=== PATIENT | female | born 1950 | race Caucasian/White ===

== ENCOUNTER 2017-03-02 10:54 | Inpatient (IN) | payer OTHER ==
[2017-03-02] VITALS (24 sets, daily range): BP systolic 154–244; BP diastolic 56–113; PULSE 67–97; RESP 20–30; TEMP 98.4–98.6; O2SAT 92–97
[~2017-03-02] VITALS: Ht 170.2 cm; Wt 110.2 kg
--- NOTE | 2017-03-02 11:21 | PD ---
HPI Chief Complaint: Stroke Alert Time Seen by Provider: 10:58 Travel History International Travel<30 days: No Contact w/Intl Traveler<30days: No Traveled to known affect area: No History of Present Illness HPI 66-year-old female patient with unknown medical history, presents to the ER brought in by EMS as a stroke alert. Patient apparently is not from the area, was staying at a hotel and was seen to walk out to the [facility] area at 10 AM normally, but then stumbled back in at 11 AM according to staff, disoriented. When EMS got there, they noted a right facial droop and a right sided weakness and aphasia. Patient isn't able to give me any further history due to aphasia and disorientation. Stroke alert was called by EMS. Some be on scene had given her 3 tablets of aspirin. Modifying Factors: None Associated Signs & Symptoms: Stroke alert, right sided weakness and aphasia Risk Factors: Unknown PFSH Past Medical History Medical History: Unable to Obtain Past Surgical History Surgical History: Unable to Obtain Social History Tobacco Use: No Allergies-Medications (Allergen,Severity, Reaction): Coded Allergies: No Known Allergies (Unverified , 03/02/17) Review of Systems ROS Limitations: Altered Mental Status Physical Exam Narrative GENERAL: Well-developed elderly white female patient currently in moderate distress. Awake, alert, disoriented, aphasic and unable to give me much history. SKIN: Focused skin assessment warm/dry. HEAD: Atraumatic. Normocephalic. EYES: Pupils equal and round. No scleral icterus. No injection or drainage. ENT: No nasal bleeding or discharge. Mucous membranes pink and moist. NECK: Trachea midline. No JVD. CARDIOVASCULAR: Regular rate and rhythm. No murmur appreciated. RESPIRATORY: No accessory muscle use. Clear to auscultation. Breath sounds equal bilaterally. GASTROINTESTINAL: Abdomen soft, non-tender, nondistended. Hepatic and splenic margins not palpable. MUSCULOSKELETAL: No obvious deformities. No clubbing. No cyanosis. No edema. NEUROLOGICAL: Awake and alert. Obvious right sided weakness and unable to lift right leg or right arm off of the bed. Aphasia. Disoriented. Not able to follow commands. PSYCHIATRIC: Disoriented. Unable to follow commands. Data Data Last Documented VS Vital Signs Date Time Temp Pulse Resp B/P (MAP) Pulse Ox O2 Delivery O2 Flow Rate FiO2 03/02/17 12:05 244/113 (156) 03/02/17 11:42 97 Nasal Cannula 2.00 03/02/17 11:28 69 30 Orders Orders Diet Npo (03/02/17 Lunch) Activity Bed Rest (03/02/17 ) Electrocardiogram (03/02/17 ) I-Stat Creatinine (03/02/17 10:59) I-Stat Profile (03/02/17 10:59) Prothrombin Time / Inr (Pt) (03/02/17 10:59) Act Partial Throm Time (Ptt) (03/02/17 10:59) Complete Blood Count With Diff (03/02/17 10:59) Fibrinogen (03/02/17 10:59) Creatine Kinase (Cpk) (03/02/17 10:59) Troponin I (03/02/17 10:59) Ua Includes Microscopic (03/02/17 10:59) Drug Screen, Random Urine (03/02/17 10:59) Type And Screen (03/02/17 10:59) Ct Brain W/O Iv Contrast(Rout) (03/02/17 ) Chest, Single Ap (03/02/17 ) Consult Neurology (03/02/17 ) Blood Glucose (03/02/17 10:59) Ecg Monitoring (03/02/17 10:59) Neuro Checks Q2HX12,Q4H (03/02/17 10:59) Nursing Bedside Swallow Assess .ONCE (03/02/17 10:59) Iv Access Insert/Monitor (03/02/17 10:59) NPO (03/02/17 10:59) Oximetry (03/02/17 10:59) Oxygen Administration (03/02/17 10:59) Resp Oxygen Dickson C Titrat 1-4 L (03/02/17 10:59) Cath For Specimen (03/02/17 10:59) Cta Brain W Iv Contrast W 3d (03/02/17 11:21) Cta Neck W Iv Contrast W 3d (03/02/17 11:21) Ct Cerebral Perf W Iv Cont W3d (03/02/17 11:21) ^ Call Pharmacy (03/02/17 11:21) Nih Stroke Scale - Nihss .ONCE (03/02/17 11:21) Urinary Catheter Insert/Apply (03/02/17 11:21) Anticoagulant Alert (03/02/17 11:21) ^ Post Infusion Restrictions (03/02/17 11:21) ^ Medication Alert (03/02/17 11:21) Vital Signs (Adult) .As directed (03/02/17 11:21) Notify Dr: Blood Pressure (03/02/17 11:21) ^ Medication Alert (03/02/17 11:21) Resp Oxygen Dickson C Titrat 1-4 L (03/02/17 ) Metoprolol Tartrate Inj (Lopressor Inj) (03/02/17 11:30) ^ Call Pharmacy (03/02/17 11:53) Nih Stroke Scale - Nihss .ONCE (03/02/17 11:53) Anticoagulant Alert (03/02/17 11:53) ^ Post Infusion Restrictions (03/02/17 11:53) ^ Medication Alert (03/02/17 11:53) Vital Signs (Adult) .As directed (03/02/17 11:53) Notify Dr: Blood Pressure (03/02/17 11:53) ^ Medication Alert (03/02/17 11:53) Alteplase Bolus (Activase Bolus) (03/02/17 12:00) Alteplase Drip (Activase Drip) (03/02/17 12:00) Sodium Chloride 0.9% Inj (Ns Inj) (03/02/17 12:00) [facility] Nursing Information (03/02/17 12:00) Resp Oxygen Dickson C Titrat 1-4 L (03/02/17 ) Ct Brain W/O Iv Contrast(Rout) (03/03/17 ) Nicardipine Inj (Cardene Inj) (03/02/17 12:15) Admit Order (Ed Use Only) (03/02/17 12:07) Labs Laboratory Tests Test 03/02/17 10:55 White Blood Count 16.3 TH/MM3 Red Blood Count 4.84 MIL/MM3 Hemoglobin 13.8 GM/DL Bedside Hemoglobin 14.6 G/DL Hematocrit 41.2 % Bedside Hematocrit 43.0 % Mean Corpuscular Volume 85.1 FL Mean Corpuscular Hemoglobin 28.4 PG Mean Corpuscular Hemoglobin Concent 33.4 % Red Cell Distribution Width 15.2 % Platelet Count 395 TH/MM3 Mean Platelet Volume 8.8 FL Neutrophils (%) (Auto) 70.6 % Lymphocytes (%) (Auto) 16.3 % Monocytes (%) (Auto) 7.6 % Eosinophils (%) (Auto) 4.7 % Basophils (%) (Auto) 0.8 % Neutrophils # (Auto) 11.5 TH/MM3 Lymphocytes # (Auto) 2.6 TH/MM3 Monocytes # (Auto) 1.2 TH/MM3 Eosinophils # (Auto) 0.8 TH/MM3 Basophils # (Auto) 0.1 TH/MM3 CBC Comment DIFF FINAL Differential Comment Prothrombin Time 11.4 SEC Prothromb Time International Ratio 1.0 RATIO Activated Partial Thromboplast Time 26.4 SEC Fibrinogen 605 mg/dL Bedside Sodium 141 MMOL/L Bedside Potassium 4.1 MMOL/L Bedside Chloride 103 MMOL/L Bedside Blood Urea Nitrogen 35 MG/DL Bedside Creatinine 1.8 MG/DL Bedside Glucose 195 MG/DL Total Creatine Kinase 171 U/L Troponin I 0.16 NG/ML MDM Medical Decision Making Medical Screen Exam Complete: Yes Emergency Medical Condition: Yes Medical Record Reviewed: Yes Interpretation(s) Initial EKG shows normal sinus rhythm with a right bundle branch block pattern at a rate of 67 bpm. No signs of acute ST-T elevations. Laboratory Tests Test 03/02/17 10:55 White Blood Count 16.3 TH/MM3 (4.0-11.0) Neutrophils (%) (Auto) 70.6 % (16.0-70.0) Eosinophils (%) (Auto) 4.7 % (0.0-4.0) Neutrophils # (Auto) 11.5 TH/MM3 (1.8-7.7) Monocytes # (Auto) 1.2 TH/MM3 (0-0.9) Eosinophils # (Auto) 0.8 TH/MM3 (0-0.4) Fibrinogen 605 mg/dL (227-377) Bedside Blood Urea Nitrogen 35 MG/DL (8-26) Bedside Creatinine 1.8 MG/DL (0.6-1.0) Bedside Glucose 195 MG/DL (60-95) Troponin I 0.16 NG/ML (0.02-0.05) Last [address] 03/02/17 0000 Signed Impressions: Service Date/Time: Thursday, March 02, 2017 11:07 - CONCLUSION: 1. Possible embolus to the left middle cerebral artery as above. CT angiography is recommended for further evaluation if clinically indicated. No acute hemorrhage is identified Anthony Bourne MD Differential Diagnosis Stroke alert: ischemic stroke versus hemorrhagic stroke versus hypertensive emergency Narrative Course Case was discussed with Dr. Wheeler, neurology on-call, and he states that the patient has a fairly elevated NIH stroke score of 23 and would be a candidate for CTA if the CAT scan is negative for ICH. In addition, she would be a TPA candidate as well. However, patient is quite disoriented and not able to follow directions, is not able to give us a good history, and it is unclear whether she has any contraindications. She is visiting and does not have any records at this hospital, we had tried to contact family and the only number that we have that is active is through her insurance and they state that she does not have any dependence, children, and appears not to be as well. At this point, I had talked to Dr. Wheeler who is in seeing the patient and we have agreed that we would do a to Dr. brown for TPA especially because of patient's severe stroke score and need for further treatment. In addition, case had been discussed with Dr. Bourne of radiology who also state that the patient would be a very good candidate for TPA and that she has a lesion in her left MCA that is concerning for emboli. He also recommends CTA as well. CT TA had been ordered for the patient and case was then discussed with principal scientist Dr. Evangelista who accepts the case for further treatment. However, TPA had not initially been started in the ER because of fairly elevated blood pressures. Patient was given 3 doses of IV metoprolol without significant improvement. Cardene drip was initiated. TPA had been mixed and wants blood pressure was low 180 systolic, TPA was initiated. After CTA was done, there was notable lesions that would be amenable for interventional radiology treatment. Patient was then brought up to interventional radiology for treatment and admission to ICU. Aggregate critical care time was 40 minutes. Time to perform other separately billable procedures was not included in the critical care time. My time did not include minutes spent treating any other patients simultaneously or on activities that did not directly contribute to the patient's treatment. The services I provided to this patient were to treat and/or prevent clinically significant deterioration that could result in: ICH, worsening CVA, I provided critical care services requiring my management, as noted below: Chart data review, documentation time, medication orders and management, vital sign assessments/reviewing monitor data, ordering and reviewing lab tests, ordering and interpreting/reviewing x-rays and diagnostic studies, care of the patient and discussion of the patient with the admitting physicians. Diagnosis Primary Impression: Stroke due to embolism of left middle cerebral artery Additional Impression: Received intravenous tissue plasminogen activator (t-PA) in emergency department Admitting Information Admitting Physician Requests: Admit Gideon Fermin MD Mar 02, 2017 11:20
--- NOTE | 2017-03-02 11:25 | RADRPT ---
EXAM DATE/TIME: 03/02/2017 11:07 [facility] COMPARISON: No previous studies available for comparison. INDICATIONS : History of stroke,right side weakness RADIATION DOSE: 33 CTDIvol (mGy) This report was called by Anthony Bourne MD to Dr. Jamison at 1122 MEDICAL HISTORY : Non-responsive. SURGICAL HISTORY : Non-responsive. ENCOUNTER: Initial ACUITY: 1 day PAIN SCALE: Non-responsive LOCATION: cranial TECHNIQUE: Multiple contiguous axial images were obtained of the head. Using automated exposure control and adj ustment of the mA and/or kV according to patient size, radiation dose was kept as low as reasonably a chievable to obtain optimal diagnostic quality images. DICOM format image data is available electro nically for review and comparison. FINDINGS: There is a marked area of hyperdensity in the distribution of the left middle cerebral artery denser than typical clot. Whether this reflects a calcified embolus is uncertain. CT angiography is recommen ded for further evaluation if clinically indicated. No acute hemorrhage is seen. No extra-axial fluid collections are identified. Posterior fossa structures are unremarkable. CONCLUSION: 1. Possible embolus to the left middle cerebral artery as above. CT angiography is recommended for fu rther evaluation if clinically indicated. No acute hemorrhage is identified Anthony Bourne MD on March 02, 2017 at 11:19 Board Certified Radiologist. This report was verified electronically.
[2017-03-02 11:28] LABS: I-STAT POTASSIUM 4.1 MMOL/L (3.5-4.9)
[2017-03-02 11:36] LABS: AUTOMATED NEUTROPHIL # 11.5 TH/MM3 (1.8-7.7); BASOPHIL # 0.1 TH/MM3 (0-0.2); BASOPHIL % 0.8 % (0.0-2.0); EOSINOPHIL # 0.8 TH/MM3 (0-0.4); EOSINOPHIL % 4.7 % (0.0-4.0); HEMATOCRIT 41.2 % (35.0-46.0); HEMO FLAGS DIFF FINAL; LYMPH % 16.3 % (9.0-44.0); LYMPHOCYTE # 2.6 TH/MM3 (1.0-4.8); MEAN CELL VOLUME 85.1 FL (80.0-100.0); MEAN CORPUSCULAR HEMOGLOBIN 28.4 PG (27.0-34.0); MEAN CORPUSCULAR HGB CONC 33.4 % (32.0-36.0); MONO % 7.6 % (0.0-8.0); NEUT % 70.6 % (16.0-70.0); PLATELET COUNT 395 TH/MM3 (150-450); RED BLOOD COUNT 4.84 MIL/MM3 (4.00-5.30); RED CELL DISTRIBUTION WIDTH 15.2 % (11.6-17.2); WHITE BLOOD COUNT 16.3 TH/MM3 (4.0-11.0)
[2017-03-02] MEDS: METOPROLOL TARTRATE 5 MG/5 ML VIAL IV PUSH PRN ×3 (11:41→11:53)
[2017-03-02 11:43] LABS: APTT (PATIENT) 26.4 SEC (24.3-30.1); PROTHROMBIN TIME - PATIENT 11.4 SEC (9.8-11.6)
[2017-03-02] MEDS ORDERED: MISCELLANEOUS NURSING INFORMATION XX PRN (12:00)
[2017-03-02] MEDS ORDERED: SODIUM CHLORIDE 0.9% 50 ML BAG IVF ONE (12:00)
[2017-03-02] MEDS: niCARdipine INJ 25 MG in SODIUM CHLOR 0.9% 250 ML INJ 250 ML IV PRN ×2 (12:14→17:14)
[2017-03-02] MEDS ORDERED: ONDANSETRON HCL 4 MG/2 ML VIAL IV PUSH ONE (12:15)
[2017-03-02] MEDS ORDERED: MISCELLANEOUS NURSING INFORMATION XX SCH (12:30)
[2017-03-02] MEDS ORDERED: GLUCAGON 1 MG/ML VIAL OTHER PRN (12:30)
[2017-03-02] MEDS ORDERED: CHLORHEXIDINE GLUCONATE 2 % 1 PACK (2 CLOTHS) TOP PRN (12:30)
[2017-03-02] MEDS ORDERED: SENNOSIDES 8.6 MG TAB PO PRN (12:30)
[2017-03-02] MEDS ORDERED: RESP: ALBUTEROL 2.5 MG/IPRATROPIUM 0.5 MG NEB (PRN) INH (12:30)
[2017-03-02] MEDS ORDERED: BISACODYL 10 MG SUPP RECTAL PRN (12:30)
[2017-03-02] MEDS ORDERED: DEXTROSE 50% IN WATER 50 ML VIAL(D50) IV PRN (12:30)
[2017-03-02] MEDS ORDERED: LACTULOSE SYRUP 20 GM/30 ML CUP PO PRN (12:30)
[2017-03-02] MEDS ORDERED: MAGNESIUM HYDROXIDE SUSP 30 ML CUP PO PRN (12:30)
[2017-03-02] MEDS ORDERED: VERAPAMIL HCL 5 MG/2 ML VIAL ONE (12:36)
--- NOTE | 2017-03-02 12:39 | RADRPT ---
EXAM DATE/TIME: 03/02/2017 11:54 [facility] COMPARISON: CT BRAIN W/O CONTRAST, March 02, 2017, 11:07. INDICATIONS : Stroke alert IV CONTRAST: 100 cc Omnipaque 350 (iohexol) IV ; Cumulative dose for multiple exams. RADIATION DOSE: 27.92 CTDIvol (mGy) ; Combined studies MEDICAL HISTORY : Non-responsive. SURGICAL HISTORY : Non-responsive. ENCOUNTER: Initial ACUITY: 1 day PAIN SCALE: Non-responsive LOCATION: cranial TECHNIQUE: Volumetric scanning was performed using a multi-row detector CT scanner. The data was post processed with a variety of visualization algorithms including full volume maximum intensity projection, multi -planar sliding thin slab reformation, curved planar reformation, and surface rendering techniques. Using automated exposure control and adjustment of the mA and/or kV according to patient size, radiat ion dose was kept as low as reasonably achievable to obtain optimal diagnostic quality images. DICO M format image data is available electronically for review and comparison. FINDINGS: There is nonocclusive thrombus involving the left M2 segment. This is in the position of the hyperden sity seen on the noncontrast scan. The right middle cerebral artery appears normal. Note is made of f enestration in the region of the anterior cerebral artery on the right. There is a origin of th e posterior cerebral artery on the left. Examination of posterior fossa also demonstrates no evidence of aneurysm or vascular malformation. Th e vertebral arteries are codominant. CONCLUSION: 1. Nonocclusive thrombus involving the left middle cerebral artery as above Anthony Bourne MD on March 02, 2017 at 12:29 Board Certified Radiologist. This report was verified electronically.
--- NOTE | 2017-03-02 12:50 | RADRPT ---
EXAM DATE/TIME: 03/02/2017 11:54 [facility] COMPARISON: No previous studies available for comparison. INDICATIONS : Right side weakness IV CONTRAST: 100 cc Omnipaque 350 (iohexol) IV RADIATION DOSE: 248.14 CTDIvol (mGy) MEDICAL HISTORY : Non-responsive. SURGICAL HISTORY : Non-responsive. ENCOUNTER: Initial ACUITY: 1 day PAIN SCALE: Non-responsive LOCATION: perfusion TECHNIQUE: CT perfusion of the brain was performed with calculation of input and output functions and generation of color coded blood flow, blood volume and mean transit time maps. Using automated exposure control and adjustment of the mA and/or kV according to patient size, radiation dose was kept as low as reas onably achievable to obtain optimal diagnostic quality images. DICOM format image data is available electronically for review and comparison. FINDINGS: There is severe flow volume mismatch involving the entire left hemisphere with a normal lung volume. This indicates large volume tissue at risk involving entire left middle cerebral artery distribution. Mean transit time demonstrates similar findings. CONCLUSION: 1. Flow volume mismatch involving the entire left middle cerebral artery distribution. The patient is to go to catheter angiography for thrombolysis Anthony Bourne MD on March 02, 2017 at 12:39 Board Certified Radiologist. This report was verified electronically.
[2017-03-02] MEDS ORDERED: IOHEXOL 350 MG/ML 10 ML VIAL (for RAD DIAG) IVCONTRAST ONE (13:17)
--- NOTE | 2017-03-02 13:19 | MB ---
cc: AMIE CANTU MD DATE OF CONSULTATION 03/02/2017 REASON FOR CONSULTATION Stroke alert HISTORY OF PRESENT ILLNESS Ms. Sánchez is a 66-year-old female with an unknown past medical history who presented to the [facility] emergency room brought in by EMS. She stays at a hotel and she was seen to stumble at 11:00 a.m. and was disoriented. EMS noted her right facial droop and right-sided weakness with dysphagia. NIH stroke scale initially was 23, last seen normal what 950. A head CT scan with no acute intracranial abnormality and a probable left MCA calcified clot. The patient is disoriented and non-consentable, hence myself and the ED attending agreed on giving her TPA given her condition. However, the blood pressure was persistently high greater than 210. Three doses of metoprolol were given, followed by two doses of Nicardipine and blood pressure was still elevated. Neck and head CTA were ordered. TPA was ordered. ICU attending was consulted and is on board. After the patient received the antihypertensive medication, there was some improvements in her neurologic status where she is awake, more alert, still dysphasic with right hemiparesis and right facial droop, but NIH stroke scale had drop down to 14 and a CTA of the head revealed a nonocclusive thrombus in the left MCA M2, hence the patient was transferred to the interventional radiology suite. The patient has received three aspirin while she was on the scene as per the notes. REVIEW OF SYSTEMS Unable to obtain. PAST MEDICAL HISTORY Unable to obtain. PAST SURGICAL HISTORY Unable to obtain. ALLERGIES Unable to obtain, as per medical records no known allergies. FAMILY HISTORY Unable to obtain. SOCIAL HISTORY Unable to obtain. PHYSICAL EXAMINATION GENERAL: The patient is disoriented and dysphasic. HEENT: Atraumatic, normocephalic. Apparent intact hearing, follows verbal commands. NECK: No signs of meningeal irritation. CARDIOVASCULAR: Regular rate and rhythm. RESPIRATORY: Clear to auscultation. No wheezes. GASTROINTESTINAL: Soft abdomen. NEUROLOGIC: Awake, alert, not oriented to person, not to time and place, dysphasic, right facial droop, right upper and lower extremity hemiparesis. There is some movement on the right shoulder abduction 1/5, right elbow extension 1/5, finger flexion 4-/5, right lower extremity, right hip flexion, knee extension and foot dorsiflexion 1/5, left upper and lower extremity 5/5. Plantar right upgoing, left mute, unable to assess cerebellar and sensory function due to the condition of the patient. PSYCHIATRIC: Unable to assess. LABORATORY DATA White BC 16.3, hemoglobin 13.8, platelet 395.Coagulation INR 1, fibrinogen elevated at 6.5, sodium 141, potassium 4.1, BUN 35, creatinine 1.8, glucose 195 , troponin 0.16. DIAGNOSTIC IMAGING - Head CT scan without contrast revealed possible embolus to the left MCA.- - Head CTA cerebral perfusion revealed flow-volume mismatch involving the entire left middle cerebral artery. - Head CTA revealed nonocclusive thrombus involving the left MCA. DIAGNOSTIC IMPRESSION AND PLAN The patient presented as a stroke alert with unknown past medical history, initial NIH stroke scale was 23. CT scan was negative for an for bleeding and it showed calcified left MCA embolus. Patient's labs were normal, however, blood pressure was elevated. She received metoprolol and Nicardipine. There was mild decrease in the blood pressure with mild improvement in neurological status to an NIH score of 14. CTA head with IV contrast revealed nonocclusive thrombus in the left MCA. The patient is not consentable, however. The emergency room physician and myself agreed to tPA once the blood pressure goes down however, the patient is transferred to the radiology suite for clots retrieval and thrombolysis. The corset maker was also consulted and he is on board with the team. Stroke alert, left MCA thrombus candidate for tPA and surgical intervention. She will be transferred to the ICU after the intervention and neurology will follow up. Thank you for the opportunity to participate in the care of your patient. MD ELYSE Grajeda/CHICHO /12:45 PM /1:01 PM RA
--- NOTE | 2017-03-02 13:27 | RADRPT ---
EXAM DATE/TIME: 03/02/2017 11:54 [facility] COMPARISON: No previous studies available for comparison. INDICATIONS : Stroke alert IV CONTRAST: 100 cc Omnipaque 350 (iohexol) IV RADIATION DOSE: 27.92 CTDIvol (mGy) ; Combined studies MEDICAL HISTORY : Non-responsive. SURGICAL HISTORY : Non-responsive. ENCOUNTER: Initial ACUITY: 1 day PAIN SCALE: Non-responsive LOCATION: cranial Elevated flow velocities and ICA/CCA ratios have been found to correlate with increased degrees of vessel stenosis, calculated as percentage of diameter relative to a normal segment of distal ICA/CCA. TECHNIQUE: Volumetric scanning was performed using a multirow detector CT scanner. The data was post processed with a variety of visualization algorithms including full-volume maximum intensity projection, multip lanar sliding thin-slab reformation, curved-planar reformation, and surface-rendering techniques. Us ing automated exposure control and adjustment of the mA and/or kV according to patient size, radiatio n dose was kept as low as reasonably achievable to obtain optimal diagnostic quality images. DICOM f ormat image data is available electronically for review and comparison. FINDINGS: No abnormality is identified within the lung apices. There is bovine origin of vessels from the arch without evidence of proximal stenosis. Vertebral arteries are codominant. Examination of the right common carotid artery demonstrates the vessel to be widely patent. There is 0-10% stenosis at the origin of the right internal carotid artery with minimal calcific plaque More d istally the cervical internal carotid artery is intact. Examination of the left common carotid artery demonstrates the vessel to be widely patent. There is 0 -10% stenosis at the organ of the left internal carotid artery with minimal calcific plaque More dist ally the cervical internal carotid artery is intact. Percent stenosis is calculated using the diameter of the stenotic region over the diameter of the nor mal distal internal carotid artery. CONCLUSION: 1. No evidence of hemodynamically significant lesion. There is 0-10% stenosis bilaterally. Anthony Bourne MD on March 02, 2017 at 13:19 Board Certified Radiologist. This report was verified electronically.
[2017-03-02] MEDS: ALTEPLASE BOLUS 9 MG/9 ML SYR IV ONE ×2 (13:34→17:56)
[2017-03-02] MEDS: ALTEPLASE DRIP IV ONE ×2 (13:35→17:58)
[2017-03-02] MEDS ORDERED: HEPARIN SODIUM - IV 10,000 UNITS/10 ML VIAL ONE (13:38)
--- NOTE | 2017-03-02 13:59 | MH ---
cc: MARY MORENO M.D. DATE OF ADMISSION: 03/02/2017 DATE OF : 1950. HISTORY OF PRESENT ILLNESS: The patient is a 66-year-old female with unknown past medical history who presented to [facility] emergency department by EMS as a stroke alert. The patient was staying at the Hotel and was last seen normal at approximately 09:50 a.m. when she was walking to the patio and then she stumbled back at 11:11 a.m. according to staff disoriented. When EMS arrived she was noted to have right facial droop and right-sided weakness with aphasia. On arrival to the emergency room she was hypertensive with a blood pressure of 244/113. The patient was given Lopressor 5 mg IV x3 and placed on Cardene drip. CT scan of the brain showed possible embolus to the left MCA. She also had a CTA of the brain which showed nonocclusive thrombus involving the left MCA and CTA with brain perfusion showed flow-volume mismatch involving the entire left MCA distribution. She was seen by Dr. Wheeler from neurology service and the patient went to interventional radiology to undergo a catheterization, Angiography for thrombolysis and cough retraction. When seen she was on Cardene drip at 10 mg an hour with current blood pressure of 205/92. The patient is on 2 liters oxygen with saturation of 98% and a pulse of 72. HISTORY: Most of the history was obtained from reviewing the medical records. The patient is not able to provide any history due to her aphagia. At the scene, she was given 3 tablets of aspirin. Her labs from point of care showed a creatinine of 1.8 and troponin 0.16 with a potassium level 4.1. PAST MEDICAL HISTORY: A past medical history unknown. PAST SURGICAL HISTORY Unknown. ALLERGIES NO KNOWN DRUG ALLERGIES. FAMILY HISTORY Unknown MEDICATIONS: medications unknown. REVIEW OF SYSTEMS Unobtainable. No prior visits. PHYSICAL EXAMINATION: IN GENERAL: A 66-year-old female lying in bed, disoriented and dysphasic. VITAL SIGNS: afebrile, pulse of 72, blood pressure 205/92 currently on Cardene saturation 98%. HEAD, EYES, EARS, NOSE, AND THROAT: Atraumatic, normocephalic pupil equal and reactive to accommodation, Extraocular muscles intact, Conjunctivae pink. Nonicteric sclerae. NECK: Supple. No jugular venous distention, adenopathy or thyromegaly. Trachea midline. CARDIOVASCULAR SYSTEM: Regular rate and rhythm. Normal S1-S2. No murmurs, rubs or gallops noted. PULMONARY EXAMINATION: Bilateral equal entry. No rales or wheezing. ABDOMEN: Soft, nontender, no distension. Positive bowel sounds. EXTREMITIES: No cyanosis, clubbing or edema. NEUROLOGIC: Awake and dysphasic right facial droop noted along with right upper and lower extremity hemiparesis. LABORATORY FINDINGS: Her laboratory data and WBC 16.3, hemoglobin 13.8, hematocrit 41, platelet count of 395, point of care sodium 141, potassium 4.1, chloride 103, BUN 35, creatinine 1.8, glucose 195, troponin 0.16, total CK 171, INR 1, PT 11.4, PTT 26, fibrinogen 605. RADIOGRAPHY CT scan of the brain showed possible embolus to the left MCA CTA of the brain showed nonocclusive thrombus involving the left MCA CTA of the head and neck with brain perfusion showed a flow-volume mismatch involving the entire left middle cerebral artery distribution. EKG showed normal sinus rhythm with right bundle-branch block at a rate of 67 beats per minute. IMPRESSION 1. Left-sided MCA stroke. 2. Hypertensive emergency. 3. Acute kidney injury. 4. Hyperglycemia. 5. Leukocytosis likely stress-related. RECOMMENDATIONS: - Monitor neuro status closely and avoid any sedatives. -CTA of the brain and with perfusion showed flow volume mismatch involving the entire left MCA distribution. -CTA of the brain showed nonocclusive thrombus involving the left MCA. -Patient was evaluated by Dr. Wheeler from neurology service and she was transferred to radiology suite where she underwent angiogram and embolectomy with presybeterian of antegrade flow. - We will obtain 2-D echo. CTA of the neck showed no evidence of any hemodynamically significant lesions. -Continue with oxygen and maintain sats above 92%. - Bronchodilators in the form of DuoNeb q. 6+ q. two p.r.n. for shortness of breath. Aspiration precautions. - Continue with Cardene drip. Monitor heart rate and blood pressure closely. -We will target systolic blood pressure goal of 180s. -Monitor renal function Is and Os and electrolyte replacement as needed. -Place on IV fluids in the form of NS at 75 ml an hour. - Keep n.p.o. for now and placed on Protonix 40 mg IV daily for GI prophylaxis. -Speech evaluation. - Monitor for signs of infections which include fever and WBC. Will obtain a baseline chest x-ray and check urinalysis with culture if indicated. -Leukocytosis likely stress related. - Monitor CBC and Coags. - Sliding scale insulin with Accu-Chek's for glycemic control. - GI prophylaxis with Protonix 40 mg daily and DVT prophylaxis with SCDs for now. -Critical care time 35 minutes excluding procedures. Case discussed with Dr. Wheeler from neurology service and the ED nursing staff. MD JEFE Costa/sehllie /1:24 PM /1:43 PM RA
[2017-03-02] MEDS ORDERED: SODIUM CHLOR 0.9% 1000 ML INJ 1,000 ML IV SCH (14:00)
[2017-03-02 14:27] LABS: ALT (GPT) 25 U/L (10-53); ANION GAP 10 MEQ/L (5-15); AST (GOT) 20 U/L (15-37); BICARBONATE 25.7 MEQ/L (21.0-32.0); BLOOD UREA NITROGEN 36 MG/DL (7-18); CHLORIDE 104 MEQ/L (98-107); GLOMERULAR FILTRATION RATE 25 ML/MIN (>89); POTASSIUM 4.1 MEQ/L (3.5-5.1); SODIUM (NA) 140 MEQ/L (136-145)
[2017-03-02 14:29] LABS: ALKALINE PHOSPHATASE 95 U/L (45-117); TOTAL BILIRUBIN ADULT 0.3 MG/DL (0.2-1.0)
[2017-03-02] MEDS ORDERED: IODIXANOL 320 MG/ML 100 ML VIAL (for EPS) I-ARTERIAL ONE (15:14)
[2017-03-02] MEDS ORDERED: DO NOT ADM ANY ANTICOAGULANT DRUGS PRN (15:25)
--- NOTE | 2017-03-02 15:42 | PD.RAD ---
Post Procedure Progress Note Pre Procedure Diagnosis: (1) Stroke due to embolism of left middle cerebral artery Post Procedure Diagnosis: (1) Stroke due to embolism of left middle cerebral artery Procedure Date: Mar 02, 2017 Supervising Radiologist: Micky Sauer Proceduralist/Assist: Rolan Sanz, RT(R), Radha Kline, RT(R)(CV), Ana Moulton, RT(R) Anesthesia: General Plan of Activity Patient to Unit: Critical Care Patient Condition: Fair See PACS Report for procedural detail/treatment Vascular-Arterial Procedure Procedure 1 Procedure Site: Cerebral (left MCA) Procedure(s): Angiogram, Embolectomy (Solumbra) Access Access Site(s): Right Femoral Artery Closure Site(s): Right vascular closure device (PerClose) Findings: Dense embolus to right MCA. Embolectomy with 4mm x 2 cm Solitaire and 060 Penumbra. Christianity of antegrade flow. Micky Sauer MD Mar 02, 2017 15:42
[2017-03-02] MEDS ORDERED: *RESP: ALBUTEROL 2.5 MG/3 ML NEB (PRN) PERIprocedural Use ONLY NEB ONE (16:02)
--- NOTE | 2017-03-02 16:44 | ECHRPT ---
Indication: cva/tia CONCLUSIONS The left ventricular systolic function is low normal with an estimated ejection fraction in the rang e of 50- 55%. Mild concentric left ventricular hypertrophy. Mild thickening of the mitral valve leaflets. Moderate mitral annular calcification. Mild to moderate mitral valve stenosis (MVA 1.7, mean grad 5.5 at a heart rate of 75). There is mild tricuspid valve regurgitation. BP: / HR: Rhythm: MEASUREMENTS (Male / Female) Normal Values Technical Quality:Very technically difficult study 2D ECHO LV Diastolic Diameter PLAX 4.3 cm 4.2 - 5.9 / 3.9 - 5.3 cm LV Systolic Diameter PLAX 3.4 cm IVS Diastolic Thickness 1.4 cm 0.6 - 1.0 / 0.6 - 0.9 cm LVPW Diastolic Thickness 1.3 cm 0.6 - 1.0 / 0.6 - 0.9 cm LV Relative Wall Thickness 0.6 RV Internal Dim ED PLAX 2.4 cm M-MODE Aortic Root Diameter MM 3.7 cm LA Systolic Diameter MM 4.0 cm LA Ao Ratio MM 1.1 AV Cusp Separation MM 1.4 cm DOPPLER MV Area PHT 1.7 cm LV E' Lateral Velocity 6.8 cm/s LV E' Septal Velocity 16.6 cm/s FINDINGS LEFT VENTRICLE The left ventricular systolic function is low normal with an estimated ejection fraction in the rang e of 50- 55%. Mild concentric left ventricular hypertrophy. Normal left ventricular size. This study was not technically sufficient to allow for evaluation of left ventricular diastolic func tion. RIGHT VENTRICLE Normal right ventricular size and systolic function. LEFT ATRIUM Left atrium is not well visualized, but appears mildly enlarged RIGHT ATRIUM The right atrium is not well visualized. ATRIAL SEPTUM Normal atrial septal thickness without atrial level shunting by limited color doppler interrogation. AORTA The aortic root and proximal ascending aorta are normal in size on limited imaging. MITRAL VALVE Mild thickening of the mitral valve leaflets. Moderate mitral annular calcification. No mitral valve regurgitation. Mild to moderate mitral valve stenosis (MVA 1.7, mean grad 5.5 at a heart rate of 75) AORTIC VALVE Probable trileaflet aortic valve. No aortic valve stenosis or regurgitation. TRICUSPID VALVE Structurally normal tricuspid valve. There is mild tricuspid valve regurgitation. PULMONARY VALVE The pulmonary valve is not well visualized. VESSELS The inferior vena cava is normal in size. PERICARDIUM There is a trace pericardial effusion. Vern Neumann DO (Electronically Signed) Final Date:02 March 2017 16:43
--- NOTE | 2017-03-02 17:30 | RADRPT ---
EXAM DATE/TIME: 03/02/2017 16:57 [facility] COMPARISON: No previous studies available for comparison. INDICATIONS : Stroke alert. MEDICAL HISTORY : None. SURGICAL HISTORY : None. ENCOUNTER: Initial ACUITY: 1 day PAIN SCORE: Non-responsive. LOCATION: Bilateral chest FINDINGS: There is ill-defined infiltrate of the left lung base. No pleural effusion seen. No pneumothorax. Hea rt size upper limits of normal. CONCLUSION: Left base infiltrate. Vinay Castellon MD on March 02, 2017 at 17:28 Board Certified Radiologist. This report was verified electronically.
[2017-03-02] MEDS: INSULIN NovoLIN REGULAR SUPPLEMENTAL SCALE SQ SCH ×2 (18:00→22:00)
[2017-03-02] MEDS: RESP: ALBUTEROL 2.5 MG/IPRATROPIUM 0.5 MG NEB (SCH) INH (20:59)
[2017-03-02] MEDS: DOCUSATE SODIUM 50 MG/SENNA 8.6 MG TAB PO SCH (21:00)
[2017-03-02] MEDS: ACETAMINOPHEN 1000 MG/100 ML VIAL IV PRN (21:42)
[2017-03-03] VITALS (25 sets, daily range): BP systolic 140–206; BP diastolic 57–91; PULSE 74–99; RESP 16–35; TEMP 98–99.5; O2SAT 87–100
[2017-03-03] MEDS: RESP: ALBUTEROL 2.5 MG/IPRATROPIUM 0.5 MG NEB (SCH) INH ×7 (00:20→23:05)
[2017-03-03] MEDS ORDERED: CALC0.25 PO (00:53)
[2017-03-03] MEDS ORDERED: ERGO2000 PO (00:53)
[2017-03-03] MEDS ORDERED: ATEN50TA PO (00:53)
[2017-03-03] MEDS ORDERED: OMEP40CA2 PO (00:53)
[2017-03-03] MEDS ORDERED: VALS320T6 PO (00:53)
[2017-03-03] MEDS: CHLORHEXIDINE GLUCONATE 2 % 1 PACK (2 CLOTHS) TOP SCH (04:00)
[2017-03-03 04:54] LABS: AUTOMATED NEUTROPHIL # 12.9 TH/MM3 (1.8-7.7); BASOPHIL # 0.1 TH/MM3 (0-0.2); BASOPHIL % 0.6 % (0.0-2.0); EOSINOPHIL # 0.1 TH/MM3 (0-0.4); EOSINOPHIL % 0.8 % (0.0-4.0); HEMATOCRIT 36.9 % (35.0-46.0); HEMO FLAGS DIFF FINAL; LYMPH % 11.7 % (9.0-44.0); LYMPHOCYTE # 1.9 TH/MM3 (1.0-4.8); MEAN CELL VOLUME 86.3 FL (80.0-100.0); MEAN CORPUSCULAR HEMOGLOBIN 27.8 PG (27.0-34.0); MEAN CORPUSCULAR HGB CONC 32.2 % (32.0-36.0); MONO % 7.1 % (0.0-8.0); NEUT % 79.8 % (16.0-70.0); PLATELET COUNT 324 TH/MM3 (150-450); RED BLOOD COUNT 4.28 MIL/MM3 (4.00-5.30); WHITE BLOOD COUNT 16.1 TH/MM3 (4.0-11.0)
[2017-03-03 05:20] LABS: ALKALINE PHOSPHATASE 92 U/L (45-117); ALT (GPT) 20 U/L (10-53); ANION GAP 10 MEQ/L (5-15); AST (GOT) 17 U/L (15-37); BICARBONATE 22.4 MEQ/L (21.0-32.0); BLOOD UREA NITROGEN 38 MG/DL (7-18); CHLORIDE 109 MEQ/L (98-107); GLOMERULAR FILTRATION RATE 23 ML/MIN (>89); MAGNESIUM 2.1 MG/DL (1.5-2.5); POTASSIUM 3.8 MEQ/L (3.5-5.1); SODIUM (NA) 141 MEQ/L (136-145); TOTAL BILIRUBIN ADULT 0.2 MG/DL (0.2-1.0)
[2017-03-03] MEDS: INSULIN NovoLIN REGULAR SUPPLEMENTAL SCALE SQ SCH ×5 (06:00→21:35)
[2017-03-03] MEDS: PANTOPRAZOLE SODIUM 40 MG VIAL IV SCH (08:40)
[2017-03-03] MEDS: METOPROLOL TARTRATE 5 MG/5 ML VIAL IV PUSH PRN ×2 (08:41→14:02)
[2017-03-03] MEDS: DOCUSATE SODIUM 50 MG/SENNA 8.6 MG TAB PO SCH ×2 (09:00→21:30)
[2017-03-03] MEDS: niCARdipine INJ 25 MG in SODIUM CHLOR 0.9% 250 ML INJ 250 ML IV PRN ×2 (09:50→14:01)
--- NOTE | 2017-03-03 13:29 | RADRPT ---
EXAM DATE/TIME: 03/02/2017 12:44 [facility] COMPARISON: No previous studies available for comparison. INDICATIONS : AMS. Stroke alert MEDICAL HISTORY : 1. AMS SURGICAL HISTORY : unknown ENCOUNTER: Initial ACUITY: 1 day PAIN SCORE: Nonresponsive. FLUORO TIME: 37.4 minutes IMAGE SERIES: 13 ACCESS SITE: Right Femoral artery CONTRAST: 90 cc Visipaque (iodixanol) MEDICATION(S): 1.) 3000 units Heparin IV DEVICE(S): 1.) Right common femoral artery Perclose 2.) Left midddle cerebral artery 4 -20 solitaire 3.) Left middle cerebral artery lauren 60 kit TIMELINE: Interventional team called: Interventional team arrived: Interventional team ready: 1230 pm Patient arrival: 1245 pm Groin puncture: 1322 pm Recanalization: 1435 pm Anesthesia and pain control was provided by the Anesthesia department. PROCEDURE : 1. Ultrasound-guided puncture of the access site. 2. Angiography of the access site prior to closure device. 3. Conscious sedation with continuous EKG and Oximetry monitoring. 4. Percutaneous closure of the access site. 5. Angiography of the left M2 segment 6. Solumbra extraction of left MCA embolus. The risks, benefits and alternatives to the procedure were explained and verbal and written consent w as obtained. The site was prepped in sterile fashion. Full sterile technique was used, including ca p, mask, sterile gloves and gown and a large sterile sheet. Hand hygiene and 2% chlorhexidine and/or betadine/alcohol prep was utilized per protocol for cutaneous antisepsis. Sterile gel and sterile p robe cover were utilized for ultrasound guidance. The skin and subcutaneous tissues were infiltrated with local anesthetic solution. With ultrasound and fluoroscopic guidance the selected artery was punctured and a vascular sheath was placed. Angiography of the common femoral artery was performed for evaluation prior to percutaneous closure device placement. Patient has a true bovine arch. JB2 catheter was used to select the left common carotid artery. Posit ion was confirmed with positive contrast. A Magic torque wire was advanced into the external carotid system to facilitate placement of the 6 Singaporean neuron sheath which was advanced into the common carot id then redirected into the petrous portion of the internal. Contrast injection confirmed occlusion o f the proximal left MCA. Sheath was connected to a verapamil drip. At this point, the agility wir e, marked min catheter and 068 max Penumbra catheter were coaxially loaded into a carrier sheath. The microcatheter and wire were advanced up to the edge of the occlusion in the left MCA territory. Prob ably due to the nature of the embolus, the occlusion was very difficult to traverse. The 068 to Penum bra catheter was then advanced further into the internal but I could not get the device to pass into the terminal genu of the left ICA. However, this provide enough purchase to advance the catheter and wire into the distal branches of the left MCA territory. Therefore, a 20 mm x 4 mm solitare retrievab le stent was advanced through the Marksman catheter and laid across the area of occlusion. Contrast i njection confirmed yazidi of antegrade flow through the left carotid system. A second attempt to advance the Penumbra catheter was unsuccessful. Therefore, the entire system was removed and replace d with the 060 Penumbra. Again, with no Marksman catheter in the agility wire across the occlusion I could not advance the 060 catheter therefore, the solitare device was redeployed across the occlusion with yazidi of antegrade flow. Using the solitare is an anchor, and was eventually able to adva nce the 060 catheter in the edge of the occlusion. Suction was applied to the penumbra catheter in th e solitare was slowly withdrawn back into the aspiration catheter. The aspiration catheter itself was then withdrawn. Contrast injection through the remaining sheath showed yazidi of antegrade flow . Hemostasis was obtained with the prescribed medicated closure device. Conscious sedation was perform ed with the prescribed dosages and duration as above in the presence of an independent trained radiol ogy nurse to assist in the monitoring of the patient. EKG and oximetry remained stable throughout e procedure. CONCLUSION: Successful embolectomy of the left MCA territory using a Solumbra technique as above. Micky Sauer MD on March 03, 2017 at 12:05 Board Certified Radiologist. This report was verified electronically.
--- NOTE | 2017-03-03 13:41 | EKG ---
Date Performed: 03/02/2017 Time Performed: 11:20:40 PTAGE: 66 years EKG: Sinus rhythm POSSIBLE LEFT ATRIAL ENLARGEMENT LEFT BUNDLE BRANCH BLOCK ABNORMAL ECG NO PREVIOUS TRACING DOCTOR: Augie Gamino Interpretating Date/Time 03/03/2017 13:38:31
[2017-03-03] MEDS ORDERED: NITROGLYCERIN 2% OINT 1 GM PACKET TOPICAL PRN (13:45)
--- NOTE | 2017-03-03 13:49 | HHI.CCPN ---
Subjective Remarks/Hospital Course The patient is a 66-year-old female with unknown past medical history who presented to [facility] emergency department by EMS as a stroke alert. The patient was staying at the Hotel and was last seen normal at approximately 09:50 a.m. when she was walking to the patio and then she stumbled back at 11:11 a.m. according to staff disoriented. When EMS arrived she was noted to have right facial droop and right-sided weakness with aphasia. On arrival to the emergency room she was hypertensive with a blood pressure of 244/113. The patient was given Lopressor 5 mg IV x3 and placed on Cardene drip. CT scan of the brain showed possible embolus to the left MCA. She also had a CTA of the brain which showed nonocclusive thrombus involving the left MCA and CTA with brain perfusion showed flow-volume mismatch involving the entire left MCA distribution. She was seen by Dr. Wheeler from neurology service and the patient went to interventional radiology to undergo a catheterization, Angiography for thrombolysis and cough retraction. When seen she was on Cardene drip at 10 mg an hour with current blood pressure of 205/92. The patient is on 2 liters oxygen with saturation of 98% and a pulse of 72. Subjective 03/03: Early resting in bed. Verbalizes a few words. Right-sided remains flaccid with right-sided facial droop. Noted patient is insulin pump. Objective Vital Signs Date Time Temp Pulse Resp B/P (MAP) Pulse Ox O2 Delivery O2 Flow Rate FiO2 03/03/17 12:00 98.1 93 24 174/73 (106) 92 03/03/17 08:07 Nasal Cannula 4.00 03/02/17 16:30 100 Intake and Output 03/03/17 03/03/17 03/04/17 08:00 16:00 00:00 Intake Total 1777 ml 250 ml Output Total 600 ml Balance 1177 ml 250 ml Result Diagram: 03/03/175 03/03/17404 Imaging Last 72 hours Impressions Cerebral Arteriogram 03/02/17 1511 Signed Impressions: Service Date/Time: Thursday, March 02, 2017 12:44 - CONCLUSION: Successful embolectomy of the left MCA territory using a Solumbra technique as above. Micky Sauer MD Neck CTA 03/02/17 1121 Signed Impressions: Service Date/Time: Thursday, March 02, 2017 11:54 - CONCLUSION: 1. No evidence of hemodynamically significant lesion. There is 0-10%% stenosis bilaterally. Anthony Bourne MD Head/Neck CTA with Brain Perfusion 03/02/171 Signed Impressions: Service Date/Time: Thursday, March 02, 2017 11:54 - CONCLUSION: 1. Flow volume mismatch involving the entire left middle cerebral artery distribution. The patient is to go to catheter angiography for thrombolysis Anthony Borune MD Head CTA 03/02/17 1121 Signed Impressions: Service Date/Time: Thursday, March 02, 2017 11:54 - CONCLUSION: 1. Nonocclusive thrombus involving the left middle cerebral artery as above Anthony Bourne MD Head CT 03/02/17 0000 Signed Impressions: Service Date/Time: Thursday, March 02, 2017 11:07 - CONCLUSION: 1. Possible embolus to the left middle cerebral artery as above. CT angiography is recommended for further evaluation if clinically indicated. No acute hemorrhage is identified Anthony Bourne MD Chest X-Ray 03/02/17 0000 Signed Impressions: Service Date/Time: Thursday, March 02, 2017 16:57 - CONCLUSION: Left base infiltrate. Vinay Castellon MD Objective Remarks GENERAL: 66 year old female, currently resting in bed in mild distress SKIN: Warm and dry. No rash HEAD: Atraumatic. Normocephalic. EYES: Pupils equal and round about 3 mm bilaterally and reactive. No scleral icterus. No injection or drainage. ENT: No nasal bleeding or discharge. Mucous membranes pink and moist. NECK: Trachea midline. No JVD. CARDIOVASCULAR: Regular rate and rhythm. S1, S2 no S4 without murmur RESPIRATORY: No accessory muscle use. Clear to auscultation. Breath sounds equal bilaterally. GASTROINTESTINAL: Abdomen soft, non-tender, nondistended. Hepatic and splenic margins not palpable. MUSCULOSKELETAL: Extremities without significant peripheral edema. No obvious deformities. NEUROLOGICAL: Awake and alert. Right facial droop. Right-sided flaccid. Withdraws to pain in right upper and lower extremity. Strength 5 out of 5 left upper and lower extremity. Sensation intact.. Five out of 5 muscle strength in the arms and legs. Normal speech. Verbalizes 1-2 word answers A/P Assessment and Plan Neuro/Psych: Left MCA CVA status post embolectomy Status post embolectomy 4 mg by 2 cm stent retrieval 03/02. Repeat head CT at 2 PM. Start baby aspirin 81 mg daily no bleeding Neurology/Dr. Wheeler following Panel pending CV: Hypertension Currently on as needed labetalol/hydralazine and Nitropaste to maintain systolic blood pressure less than 180 Home medications atenolol 50 mill grams daily and valsartan/HCTZ 320/25 one tablet daily 2-D echocardiogram revealed EF 55%. Mild LVH Resp: Nasal cannula to maintain saturations greater than equal to 92% Incentive spirometry while awake GI: Gastroesophageal reflux disease Advance diet as tolerated per speech therapy Pantoprazole for GI prophylaxis. On omeprazole at home 20 mg daily Leslie-Colace for bowel regimen : Zapien catheter if indicated for accurate I's and O's in a critically ill patient Endo: Diabetes mellitus Discontinue insulin pump. Restart when clinically indicated Sliding-scale insulin with Accu-Cheks to maintain euglycemia/low regimen every 4 hours with Novulog Renal: Acute kidney injury question underlying chronic kidney disease Currently normal saline 75 cc an hour Crowding currently 2.2. Check urine electrolytes and eosinophils. Renal ultrasound ordered. Heme: Leukocytosis Monitor CBC daily. Follow trends ID: Monitor for infection MSK: Vitamin D deficiency Holding calcitriol 0.25 mg daily and ergocalciferol 2000 units daily. Resume when clinically indicated FEN: Replace electrolytes as clinically indicated Access - Utilize peripheral IV. Central line if indicated Prophylaxis - GI - pantoprazole - DVT - SCD/likely protocol prophylaxis vascular embolectomy Level II follow-up Ron Marcus MD Mar 03, 2017 13:49
[2017-03-03] MEDS ORDERED: SODIUM CHLOR 0.45% 1000 ML INJ 1,000 ML IV ONE (14:00)
--- NOTE | 2017-03-03 14:58 | RADRPT ---
EXAM DATE/TIME: 03/03/2017 14:18 [facility] COMPARISON: CT BRAIN W/O CONTRAST, March 02, 2017, 11:07. INDICATIONS : Follow up TPA. RADIATION DOSE: 36.35 CTDIvol (mGy) MEDICAL HISTORY : None SURGICAL HISTORY : None. ENCOUNTER: Subsequent ACUITY: 1 day PAIN SCALE: 0/10 LOCATION: Cranial TECHNIQUE: Multiple contiguous axial images were obtained of the head. Using automated exposure control and adj ustment of the mA and/or kV according to patient size, radiation dose was kept as low as reasonably a chievable to obtain optimal diagnostic quality images. DICOM format image data is available electro nically for review and comparison. FINDINGS: There is faint parenchymal high density within the left posterior parietal region consistent with pos sible minimal parenchymal or subarachnoid areas of hemorrhage. There is diffuse effacement of the le ft posterior parietal sulci as well as underlying scattered areas of decreased attenuation within the left posterior parietal regions suggestive of probable acute infarct. No midline shift is noted. Th e ventricles, sulci, and cisterns are stable. CONCLUSION: Very faint areas of high density within the left posterior parietal parenchyma measuring approximatel y 1 cm each suggestive of possible faint areas of parenchymal or subarachnoid hemorrhage as well as d iffuse effacement of the posterior parietal sulci and underlying scattered areas of decreased attenua tion consistent with acute infarction of the left posterior parietal lobe. Humberto Santillan MD on March 03, 2017 at 14:38 Board Certified Radiologist. This report was verified electronically.
[2017-03-03] MEDS: hydrALAZINE HCL 20 MG/ML VIAL IV PUSH PRN (15:37)
[2017-03-03] MEDS ORDERED: niCARdipine INJ 25 MG in SODIUM CHLOR 0.9% 250 ML INJ 250 ML IV PRN (16:00)
--- NOTE | 2017-03-03 16:24 | RADRPT ---
EXAM DATE/TIME: 03/03/2017 15:45 [facility] COMPARISON: CHEST SINGLE AP, March 02, 2017, 16:57. INDICATIONS : Short of breath. MEDICAL HISTORY : None. SURGICAL HISTORY : None. ENCOUNTER: Initial ACUITY: 2 days PAIN SCORE: Non-responsive. LOCATION: Bilateral chest FINDINGS: A single view of the chest demonstrates the lungs to be symmetrically aerated with increased intersti tial markings suggesting some degree of vascular congestion or volume overload. Resolving atelectasis in the left base. No effusion. Heart size is normal. Osseous structures are intact. CONCLUSION: 1. Increased interstitial markings suggesting some degree of vascular congestion or volume overload. 2. Improved inspiratory effort with resolving atelectatic changes in the left lung base. Micky Sauer MD on March 03, 2017 at 16:21 Board Certified Radiologist. This report was verified electronically.
[2017-03-03] MEDS ORDERED: ETOMIDATE 20 MG/10 ML VIAL IV PUSH ONE (16:30)
[2017-03-03] MEDS ORDERED: ROCURONIUM INJ 50 MG/5 ML VIAL IV ONE (16:30)
--- NOTE | 2017-03-03 16:46 | PD.PROCEDR ---
Procedure Note Procedure DATE: 03/03/2017 PROCEDURE: Orotracheal intubation INDICATION: Respiratory failure DETAILS OF PROCEDURE The patient was placed in optimal position and preoxygenated with 100% FiO2 via bag valve mask. At the start oxygen saturation was 100%. The patient was administered 20 mg etomidate IV and 50 mg rocuronium IV. I entered the oropharynx with a size 4 GVL glidescope blade and obtained a grade 2 view of the airway. On single attempt a size 8.0 cuffed endotracheal tube was passed through the vocal cords. Correct tube location was confirmed with end tidal CO2 detector and by auscultating over bilateral lung deleon. The endotracheal tube was secured with adhesive tape at a depth of 23 cm at the lips. The patient was connected to the ventilator. The patient tolerated the procedure well without any apparent complications. Oxygen saturations were maintained greater than 95% all times. STAT chest x-ray pending at time of dictation Ron Marcus MD Mar 03, 2017 16:46
[2017-03-03 16:49] LABS: BLOOD GAS BASE EXCESS -6.6 mmol/L (-2-2); BLOOD GAS CARBOXYHEMOGLOBIN 1.1 % (0-4); BLOOD GAS HCO3 17 mmol/L (22-26); BLOOD GAS METHEMOGLOBIN 0.9 % (0-2); BLOOD GAS O2 HGB SATURATION 87 % (90-100); BLOOD GAS OXYGEN CONTENT 15.4 Vol % (12.0-20.0); BLOOD GAS PCO2 28 mmHg (38-42); BLOOD GAS PO2 55 mmHg (61-120); BLOOD GAS TOTAL HGB 12.6 G/DL (12.0-16.0); TEMP CORR TO 98.6
[2017-03-03 16:50] LABS: CRITICAL VALUE YES; DRAW SITE RT RADIAL; FIO2 100 %; LITER FLOW 15 L/M; NUMBER OF ARTERIAL PUNCTURES 1; STAT YES; ULNAR PULSE PRESENT
[2017-03-03] MEDS ORDERED: FUROSEMIDE 20 MG/2 ML VIAL IV PUSH ONE (17:00)
[2017-03-03] MEDS ORDERED: NITROGLYCERIN-D5W 50 MG/250 ML 250 ML IV PRN (17:00)
[2017-03-03] MEDS ORDERED: POTASSIUM CHLORIDE 20 MEQ PWD PACKET PO ONE (17:00)
[2017-03-03] MEDS: fentaNYL DRIP 250 ML IV PRN (17:16)
[2017-03-03] MEDS: PROPOFOL 1000 MG/100 ML INJ 100 ML IV PRN (17:17)
--- NOTE | 2017-03-03 17:28 | RADRPT ---
EXAM DATE/TIME: 03/03/2017 16:41 [facility] COMPARISON: CHEST SINGLE AP, March 03, 2017, 15:45. INDICATIONS : Post intubation. MEDICAL HISTORY : None. SURGICAL HISTORY : None. ENCOUNTER: Initial ACUITY: 1 day PAIN SCORE: Non-responsive. LOCATION: Bilateral chest FINDINGS: Endotracheal tube tip is well above the matt. There are patchy airspace opacities in the right per ihilar region, left upper lung, and left infrahilar region. Both hemidiaphragms are well delineated. The heart is normal in size. CONCLUSION: 1. ET tube in good position. 2. Bilateral airspace opacities, similar to prior. Gonzalo Madison MD on March 03, 2017 at 17:25 Board Certified Radiologist. This report was verified electronically.
--- NOTE | 2017-03-03 17:56 | HHI.PR ---
Review/Management Diagnosis Acute ischemic stroke left MCA/M2 s/p clot extraction and iv tPA on 03/02/2017 Plan Neuro-checks Q1h Start Aspirin 81mg daily tomorrow am Continue supportive medical treatment maintain BP< 180/105 for first 24 hours after tPA Telemetry Cardiac ECHO DVT prophylaxis GI Prophylaxis Diagnosis/Plan: Subjective Subjective Comments Patient reportedly desaturated and needed to be intubated as her BP was markedly elevated and had difficulty breathing As per RN, patient had some movement over the right LE and UE, awake, with garbled speech before being intubated A follow up head CT scan revealed a small amount of blood at the parieto- occipital region with no midline shift Active Medications Current Medications Medications (Trade) Dose Ordered Sig/Venecia Route Start Time Stop Time Status Last Admin (Lopressor Inj) 5 mg Q5M PRN IV PUSH 03/02/17 11:30 03/03/17 14:02 (Protonix Inj) 40 mg DAILY IV 03/03/17 09:00 03/03/17 08:40 (Duoneb Neb) 1 ampule Q4HR NEB INH 03/02/17 16:00 03/03/17 15:37 Miscellaneous Information 1 Q361D XX 03/02/17 12:30 (Chlorhexidine 2% Cloth) 3 pack Taper DAILY@04 TOP 03/03/17 04:00 02/27/18 03:59 03/03/17 04:00 (Chlorhexidine 2% Cloth) 3 pack UNSCH PRN TOP 03/02/17 12:30 (Leslie-Colace) 1 tab BID PO 03/02/17 21:00 (Milk Of Magnesia Liq) 30 ml Q12H PRN PO 03/02/17 12:30 (Senokot) 17.2 mg Q12H PRN PO 03/02/17 12:30 (Dulcolax Supp) 10 mg DAILY PRN RECTAL 03/02/17 12:30 (Lactulose Liq) 30 ml DAILY PRN PO 03/02/17 12:30 (D50w (Vial) Inj) 50 ml UNSCH PRN IV 03/02/17 12:30 (Glucagon Inj) 1 mg UNSCH PRN OTHER 03/02/17 12:30 (NovoLIN R SUPPLEMENTAL SCALE) 1 Q4H SQ 03/02/17 14:00 03/03/17 15:30 (Ofirmev 1000 Mg/ 100 ml Inj) 1,000 mg Q6H PRN IV 03/02/17 20:45 03/02/17 21:42 (Albuterol Neb) 2.5 mg Q2HR NEB PRN NEB 03/03/17 13:30 (Apresoline Inj) 10 mg Q1HR PRN IV PUSH 03/03/17 13:45 03/03/17 15:37 (Trandate Inj) 10 mg Q1HR PRN IV PUSH 03/03/17 13:45 (Nitroglycerin 2% Oint) 2 inch Q6HR PRN TOPICAL 03/03/17 13:45 Nicardipine HCl 25 mg/Sodium Chloride 260 ml @ 52 mls/hr TITRATE PRN IV 03/03/17 16:00 03/03/17 17:20 (Peridex 0.12% Liq) 15 ml BID@08,20 MT 03/03/17 20:00 Propofol 100 ml @ 2.937 mls/ hr TITRATE PRN IV 03/03/17 16:30 03/03/17 17:17 Fentanyl Citrate 250 ml @ 5 mls/hr TITRATE PRN IV 03/03/17 16:30 03/03/17 17:16 Nitroglycerin/ Dextrose 250 ml @ 1.5 mls/hr TITRATE PRN IV 03/03/17 17:00 Allergies Allergies Coded Allergies No Known Allergies (Unverified03/02/17) Review of Systems All other ROS: ROS reviewed as documented in chart Exam I&O / VS 03/03/17 03/03/17 03/04/17 15:00 23:00 07:00 Intake Total 250 ml 900 ml Balance 250 ml 900 ml Intake IV Total 250 ml 900 ml Vital Signs Date Time Temp Pulse Resp B/P (MAP) Pulse Ox O2 Delivery O2 Flow Rate FiO2 03/03/17 17:20 103 164/71 03/03/17 16:54 96 100 03/03/17 14:01 85 166/73 03/03/17 13:00 98.6 90 24 168/74 (105) 93 03/03/17 12:00 98.1 93 24 174/73 (106) 92 03/03/17 11:00 98.0 87 22 161/72 (101) 92 03/03/17 10:00 98.0 97 32 173/74 (107) 92 03/03/17 09:50 97 174/77 03/03/17 09:00 98.3 94 35 174/76 (108) 95 03/03/17 08:07 96 Nasal Cannula 4.00 03/03/17 08:00 Nasal Cannula 4.00 03/03/17 08:00 98.3 83 32 174/77 (109) 95 03/03/17 07:00 98.0 93 27 165/75 (105) 93 03/03/17 07:00 93 03/03/17 06:00 98.3 92 22 158/70 (99) 96 03/03/17 05:00 98.3 84 24 181/79 (113) 93 03/03/17 04:00 98.3 92 22 172/72 (105) 97 03/03/17 04:00 84 174/77 03/03/17 03:00 74 21 162/71 (101) 97 03/03/17 02:00 78 19 163/58 (93) 94 03/03/17 01:00 87 24 165/72 (103) 97 03/03/17 00:00 98.3 82 23 156/70 (98) 97 03/03/17 00:00 82 156/70 03/02/17 23:08 81 22 164/74 (104) 96 03/02/17 23:00 86 23 154/66 (95) 95 03/02/17 23:00 81 03/02/17 22:12 21 03/02/17 22:00 97 23 167/72 (103) 92 03/02/17 21:08 94 21 166/62 (96) 94 03/02/17 21:00 94 23 166/69 (101) 94 03/02/17 21:00 94 23 164/62 (96) 97 03/02/17 21:00 94 23 166/69 (101) 97 03/02/17 20:59 96 Nasal Cannula 4.00 03/02/17 20:00 96 22 163/60 (94) 94 03/02/17 19:30 92 24 154/69 (97) 93 03/02/17 19:00 98.6 96 22 164/75 (104) 94 03/02/17 19:00 Nasal Cannula 4.00 03/02/17 19:00 92 171/75 Exam Comments Intubated and sedated Objective Radiology Results Last [address] 03/03/17 0000 Signed Impressions: Service Date/Time: Friday, March 03, 2017 14:18 - CONCLUSION: Very faint areas of high density within the left posterior parietal parenchyma measuring approximately 1 cm each suggestive of possible faint areas of parenchymal or subarachnoid hemorrhage as well as diffuse effacement of the posterior parietal sulci and underlying scattered areas of decreased attenuation consistent with acute infarction of the left posterior parietal lobe. Humberto Santillan MD Chest X-Ray 03/03/17 0000 Signed Impressions: Service Date/Time: Friday, March 03, 2017 16:41 - CONCLUSION: 1. ET tube in good position. 2. Bilateral airspace opacities, similar to prior. Gonzalo Madison MD Chest X-Ray 03/03/17 0000 Signed Impressions: Service Date/Time: Friday, March 03, 2017 15:45 - CONCLUSION: 1. Increased interstitial markings suggesting some degree of vascular congestion or volume overload. 2. Improved inspiratory effort with resolving atelectatic changes in the left lung base. Micky Sauer MD Cerebral Arteriogram 03/02/17 1511 Signed Impressions: Service Date/Time: Thursday, March 02, 2017 12:44 - CONCLUSION: Successful embolectomy of the left MCA territory using a Solumbra technique as above. Micky Sauer MD Neck CTA 03/02/17 112 Signed Impressions: Service Date/Time: Thursday, March 02, 2017 11:54 - CONCLUSION: 1. No evidence of hemodynamically significant lesion. There is 0-10%% stenosis bilaterally. Anthony Bourne MD Head/Neck CTA with Brain Perfusion 03/02/171120 Signed Impressions: Service Date/Time: Thursday, March 02, 2017 11:54 - CONCLUSION: 1. Flow volume mismatch involving the entire left middle cerebral artery distribution. The patient is to go to catheter angiography for thrombolysis Anthony Bourne MD Head CTA 03/02/171120 Signed Impressions: Service Date/Time: Thursday, March 02, 2017 11:54 - CONCLUSION: 1. Nonocclusive thrombus involving the left middle cerebral artery as above Anthony Bourne MD Head CT 03/02/17 0000 Signed Impressions: Service Date/Time: Thursday, March 02, 2017 11:07 - CONCLUSION: 1. Possible embolus to the left middle cerebral artery as above. CT angiography is recommended for further evaluation if clinically indicated. No acute hemorrhage is identified Anthony Bourne MD Chest X-Ray 03/02/17 0000 Signed Impressions: Service Date/Time: Thursday, March 02, 2017 16:57 - CONCLUSION: Left base infiltrate. Vinay Castellon MD Micro and Labs Laboratory Tests Test 03/03/17 04:05 03/03/17 16:10 White Blood Count 16.1 Red Blood Count 4.28 Hemoglobin 11.9 Hematocrit 36.9 Mean Corpuscular Volume 86.3 Mean Corpuscular Hemoglobin 27.8 Mean Corpuscular Hemoglobin Concent 32.2 Red Cell Distribution Width 15.0 Platelet Count 324 Mean Platelet Volume 8.8 Neutrophils (%) (Auto) 79.8 Lymphocytes (%) (Auto) 11.7 Monocytes (%) (Auto) 7.1 Eosinophils (%) (Auto) 0.8 Basophils (%) (Auto) 0.6 Neutrophils # (Auto) 12.9 Lymphocytes # (Auto) 1.9 Monocytes # (Auto) 1.2 Eosinophils # (Auto) 0.1 Basophils # (Auto) 0.1 CBC Comment DIFF FINAL Differential Comment Blood Urea Nitrogen 38 Creatinine 2.19 Random Glucose 218 Total Protein 6.2 Albumin 2.6 Calcium Level 8.7 Phosphorus Level 4.0 Magnesium Level 2.1 Alkaline Phosphatase 92 Aspartate Amino Transf (AST/SGOT) 17 Alanine Aminotransferase (ALT/SGPT) 20 Total Bilirubin 0.2 Sodium Level 141 Potassium Level 3.8 Chloride Level 109 Carbon Dioxide Level 22.4 Anion Gap 10 Estimat Glomerular Filtration Rate 23 Blood Gas Puncture Site RT RADIAL Blood Gas Patient Temperature 98.6 Blood Gas HCO3 17 Blood Gas Base Excess -6.6 Blood Gas Oxygen Saturation 87 Arterial Blood pH 7.41 Arterial Blood Partial Pressure CO2 28 Arterial Blood Partial Pressure O2 55 Arterial Blood Oxygen Content 15.4 Arterial Blood Carboxyhemoglobin 1.1 Arterial Blood Methemoglobin 0.9 Blood Gas Hemoglobin 12.6 Oxygen Delivery Device Non-Rebreathing Mask Blood Gas Liter Flow 15 Blood Gas Inspired Oxygen 100 Linda Wheeler MD Mar 03, 2017 17:56
[2017-03-03 18:29] LABS: BLOOD GAS BASE EXCESS -7.9 mmol/L (-2-2); BLOOD GAS HCO3 17 mmol/L (22-26); BLOOD GAS METHEMOGLOBIN 1.1 % (0-2); BLOOD GAS O2 HGB SATURATION 95 % (90-100); BLOOD GAS OXYGEN CONTENT 15.1 Vol % (12.0-20.0); BLOOD GAS PCO2 35 mmHg (38-42); BLOOD GAS PO2 102 mmHg (61-120); BLOOD GAS TOTAL HGB 11.2 G/DL (12.0-16.0); CRITICAL VALUE NO; FIO2 100 %; OXYGEN DEVICE VENTILATOR; TEMP CORR TO 98.6; VENT SETTINGS PRVC/16/550/1.0/+5
[2017-03-03 18:30] LABS: DRAW SITE RT RADIAL; NUMBER OF ARTERIAL PUNCTURES 1; STAT NO; ULNAR PULSE PRESENT
--- NOTE | 2017-03-03 18:40 | RADRPT ---
EXAM DATE/TIME: 03/03/2017 17:58 [facility] COMPARISON: No previous studies available for comparison. INDICATIONS : Increased BUN/Creatinine. MEDICAL HISTORY : Hypertension. Dizziness. CVA. Diabetes. SURGICAL HISTORY : Hysterectomy. Embolectomy. ENCOUNTER: Initial ACUITY: 1 day PAIN SCORE: Nonresponsive. LOCATION: Bilateral flank MEASUREMENTS: RIGHT KIDNEY: 11.2 x 5.7 x 5.3 cm LEFT KIDNEY: 12.1 x 5.7 x 5.8 cm FINDINGS: Bladder is decompressed by Zapien. Kidneys are within normal limits for size with trace perinephric fl uid. Increased echogenicity characteristic of medical renal disease. Multiple complex cystic masses present in the pelvic region measuring up to 12.3 and 10.5 cm in lengt h. No prior cross-sectional imaging available. This would be better evaluated with CT abdomen and pel vis. CONCLUSION: 1. Echogenic kidneys characteristic of medical renal disease with trace perinephric fluid. No hydrone phrosis. 2. Abnormal cystic and solid lesions in the pelvis. Further evaluation with CT abdomen and pelvis rec ommended. Jerrell Quintero MD on March 03, 2017 at 18:35 Board Certified Radiologist. This report was verified electronically.
[2017-03-03] MEDS: CHLORHEXIDINE 0.12% (ORAL KIT) 15 ML CUP MT SCH (22:12)
[2017-03-04] VITALS (19 sets, daily range): BP systolic 131–181; BP diastolic 61–80; PULSE 73–85; RESP 16; TEMP 98.8–102; O2SAT 97–100
[2017-03-04] MEDS: PROPOFOL 1000 MG/100 ML INJ 100 ML IV PRN ×4 (01:05→23:44)
[2017-03-04] MEDS: RESP: ALBUTEROL 2.5 MG/IPRATROPIUM 0.5 MG NEB (SCH) INH ×5 (01:59→20:00)
[2017-03-04] MEDS: INSULIN NovoLIN REGULAR SUPPLEMENTAL SCALE SQ SCH ×6 (02:28→21:54)
[2017-03-04] MEDS: CHLORHEXIDINE GLUCONATE 2 % 1 PACK (2 CLOTHS) TOP SCH (04:00)
[2017-03-04 05:22] LABS: ANION GAP 11 MEQ/L (5-15); BICARBONATE 19.7 MEQ/L (21.0-32.0); BLOOD UREA NITROGEN 47 MG/DL (7-18); CHLORIDE 112 MEQ/L (98-107); GLOMERULAR FILTRATION RATE 16 ML/MIN (>89); POTASSIUM 4.2 MEQ/L (3.5-5.1); SODIUM (NA) 143 MEQ/L (136-145)
[2017-03-04 05:26] LABS: LDL CHOLESTEROL 53 MG/DL (0-99)
[2017-03-04 05:32] LABS: HEMATOCRIT 31.3 % (35.0-46.0); MEAN CELL VOLUME 88.3 FL (80.0-100.0); MEAN CORPUSCULAR HEMOGLOBIN 28.1 PG (27.0-34.0); MEAN CORPUSCULAR HGB CONC 31.8 % (32.0-36.0); PLATELET COUNT 273 TH/MM3 (150-450); RED BLOOD COUNT 3.55 MIL/MM3 (4.00-5.30); RED CELL DISTRIBUTION WIDTH 15.5 % (11.6-17.2); REVIEW FLAG FINAL; WHITE BLOOD COUNT 14.3 TH/MM3 (4.0-11.0)
[2017-03-04] MEDS: PANTOPRAZOLE SODIUM 40 MG VIAL IV SCH (08:12)
[2017-03-04] MEDS: DOCUSATE SODIUM 50 MG/SENNA 8.6 MG TAB PO SCH ×2 (08:12→20:06)
[2017-03-04] MEDS: CHLORHEXIDINE 0.12% (ORAL KIT) 15 ML CUP MT SCH ×2 (08:13→20:06)
--- NOTE | 2017-03-04 10:48 | HHI.CCPN ---
Subjective Remarks/Hospital Course The patient is a 66-year-old female with unknown past medical history who presented to [facility] emergency department by EMS as a stroke alert. The patient was staying at the Hotel and was last seen normal at approximately 09:50 a.m. when she was walking to the patio and then she stumbled back at 11:11 a.m. according to staff disoriented. When EMS arrived she was noted to have right facial droop and right-sided weakness with aphasia. On arrival to the emergency room she was hypertensive with a blood pressure of 244/113. The patient was given Lopressor 5 mg IV x3 and placed on Cardene drip. CT scan of the brain showed possible embolus to the left MCA. She also had a CTA of the brain which showed nonocclusive thrombus involving the left MCA and CTA with brain perfusion showed flow-volume mismatch involving the entire left MCA distribution. She was seen by Dr. Wheeler from neurology service and the patient went to interventional radiology to undergo a catheterization, Angiography for thrombolysis and cough retraction. When seen she was on Cardene drip at 10 mg an hour with current blood pressure of 205/92. The patient is on 2 liters oxygen with saturation of 98% and a pulse of 72. 9/: Early resting in bed. Verbalizes a few words. Right-sided remains flaccid with right-sided facial droop. Noted patient is insulin pump. Subjective 03/04: Afebrile. Intubated yesterday due to acute hypoxemic respiratory failure. Currently in acute kidney injury possibly secondary to dye/IV contrast. Nonoliguric currently with 1225 cc past 24 hours. Following commands unilaterally with left upper and lower extremity. Right upper and lower extremity flaccid.. Objective Vital Signs Date Time Temp Pulse Resp B/P (MAP) Pulse Ox O2 Delivery O2 Flow Rate FiO2 03/04/17 09:53 97 40 03/04/17 07:00 Mechanical Ventilator 03/04/17 07:00 73 03/04/17 04:00 99.0 16 133/62 (85) 03/03/17 08:07 4.00 Intake and Output 03/04/17 03/04/17 03/05/17 08:00 16:00 00:00 Intake Total 290 ml Output Total 600 ml Balance -310 ml Result Diagram: 03/04/17 0409 03/04/17 0409 Imaging Last Impressions Renal Ultrasound 03/03/17 0000 Signed Impressions: Service Date/Time: Friday, March 03, 2017 17:58 - CONCLUSION: 1. Echogenic kidneys characteristic of medical renal disease with trace perinephric fluid. No hydronephrosis. 2. Abnormal cystic and solid lesions in the pelvis. Further evaluation with CT abdomen and pelvis recommended. Jerrell Quintero MD Head CT 03/03/17 0000 Signed Impressions: Service Date/Time: Friday, March 03, 2017 14:18 - CONCLUSION: Very faint areas of high density within the left posterior parietal parenchyma measuring approximately 1 cm each suggestive of possible faint areas of parenchymal or subarachnoid hemorrhage as well as diffuse effacement of the posterior parietal sulci and underlying scattered areas of decreased attenuation consistent with acute infarction of the left posterior parietal lobe. Humberto Santillan MD Chest X-Ray 03/03/17 0000 Signed Impressions: Service Date/Time: Friday, March 03, 2017 16:41 - CONCLUSION: 1. ET tube in good position. 2. Bilateral airspace opacities, similar to prior. Gonzalo Madison MD Cerebral Arteriogram 03/02/17 1511 Signed Impressions: Service Date/Time: Thursday, March 02, 2017 12:44 - CONCLUSION: Successful embolectomy of the left MCA territory using a Solumbra technique as above. Micky Sauer MD Neck CTA 03/02/17 112 Signed Impressions: Service Date/Time: Thursday, March 02, 2017 11:54 - CONCLUSION: 1. No evidence of hemodynamically significant lesion. There is 0-10%% stenosis bilaterally. Anthony Bourne MD Head/Neck CTA with Brain Perfusion 03/02/171120 Signed Impressions: Service Date/Time: Thursday, March 02, 2017 11:54 - CONCLUSION: 1. Flow volume mismatch involving the entire left middle cerebral artery distribution. The patient is to go to catheter angiography for thrombolysis Anthony Bourne MD Head CTA 03/02/17 112 Signed Impressions: Service Date/Time: Thursday, March 02, 2017 11:54 - CONCLUSION: 1. Nonocclusive thrombus involving the left middle cerebral artery as above Anthony Bourne MD Objective Remarks GENERAL: 66 year old female, currently resting in bed in no acute distress orotracheally intubated SKIN: Warm and dry. No rash HEAD: Atraumatic. Normocephalic. EYES: Pupils equal and round about 3 mm bilaterally and reactive. No scleral icterus. No injection or drainage. ENT: No nasal bleeding or discharge. Mucous membranes pink and moist. Oropharynx without erythema or exudates NECK: Trachea midline. No JVD. CARDIOVASCULAR: Regular rate and rhythm. S1, S2 no S4 without murmur RESPIRATORY: No accessory muscle use. Clear to auscultation. Breath sounds equal bilaterally. GASTROINTESTINAL: Abdomen soft, non-tender, nondistended. Hepatic and splenic margins not palpable. MUSCULOSKELETAL: Extremities without significant peripheral edema. No obvious deformities. NEUROLOGICAL: Currently sedated on propofol and fentanyl. Right facial droop. Right-sided flaccid. Withdraws to pain in right upper and lower extremity. Spontaneously moving left upper and lower extremity. Sensation intact.. Urinary Catheter: Yes Assessment to: Continue Zpaien insert reason: Prolonged Immobilization Vascular Central Line Catheter: No Assessment to: Continue A/P Assessment and Plan Neuro/Psych: Left MCA CVA status post embolectomy Left parietal CVA with petechial hemorrhage Status post embolectomy 4 mg by 2 cm stent retrieval 03/02. Repeat head CT 03/03 revealed a left parietal CVA with petechial hemorrhage surrounding Neurology/Dr. Wheeler following Will check EEG today 03/04 CV: Hypertension Hypertriglyceridemia of 277 Currently on as needed labetalol/hydralazine and Nitropaste to maintain systolic blood pressure less than 160/: Blood pressure goal recommendation and discussion per neurology 03/03 Home medications atenolol 50 mill grams daily and valsartan/HCTZ 320/25 one tablet daily 2-D echocardiogram revealed EF 55%. Mild LVH Initiate lipid-lowering agent once clinically appropriate Resp: Acute hypoxemic respiratory failure [facility] 16//07/02/39 Ventilator bundle Albuterol/ipratropium aerosols every 6 hours and albuterol aerosols every 2 hours. Dyspnea Spontaneous breathing trials daily Follow-up chest x-ray in a.m. GI: Gastroesophageal reflux disease Initiate tube feeding with Nepro goal 40 cc an hour Pantoprazole for GI prophylaxis. On omeprazole at home 20 mg daily Leslie-Colace one tablet twice a day for bowel regimen : Zapien catheter if indicated for accurate I's and O's in a critically ill patient Endo: Diabetes mellitus Discontinue insulin pump. Restart when clinically indicated. Started on detemir 10 units subcutaneous twice a day Sliding-scale insulin with Accu-Cheks to maintain euglycemia/low regimen every 4 hours with Novulog Renal: Acute kidney injury question underlying chronic kidney disease Currently normal saline 84 cc an hour Crowding currently 3.0. Did receive IV dye for CT angiogram Check urine electrolytes and eosinophils. Renal ultrasound 03/03 revealed medical renal disease. Noted's cystic versus solid mass and pelvis. Recommended CT pelvis. Heme: Leukocytosis Monitor CBC daily. Follow trends ID: Monitor for infection MSK: Vitamin D deficiency Holding calcitriol 0.25 mg daily and ergocalciferol 2000 units daily. Resume when clinically indicated FEN: Replace electrolytes as clinically indicated Access - Utilize peripheral IV. Central line if indicated Prophylaxis - GI - pantoprazole - DVT - SCD/likely protocol prophylaxis vascular embolectomy Level II follow-up Ron Marcus MD Mar 04, 2017 10:48
[2017-03-04] MEDS ORDERED: DIATRIZOATE MEGLUM/DIATRIZOATE SOD 9 ML CUP PO ONE (11:30)
[2017-03-04] MEDS ORDERED: SODIUM CHLORID 0.9% 500 ML INJ 500 ML IV ONE (12:00)
[2017-03-04] MEDS: INSULIN DETEMIR 100 UNITS/ML VIAL SQ SCH ×2 (13:00→20:05)
[2017-03-04] MEDS: SODIUM CHLOR 0.9% 1000 ML INJ 1,000 ML IV SCH (13:01)
[2017-03-04] MEDS: ACETAMINOPHEN 1000 MG/100 ML VIAL IV PRN (15:28)
[2017-03-04 16:22] LABS: HEMOGLOBIN A1a 1.4 %; HEMOGLOBIN A1b 1.1 %; HEMOGLOBIN Ao 76.3 %; HEMOGLOBIN F 1.7 %; HEMOGLOBIN LA1C 3.2 %; HEMOGLOBIN P3 5.8 %
--- NOTE | 2017-03-04 16:24 | HHI.PR ---
Review/Management Diagnosis Acute ischemic stroke left MCA/M2 s/p clot extraction and iv tPA on 03/02/2017 Hypoxemic respiratory failure Plan Neuro-checks Q1h Start Aspirin 81mg daily Continue supportive medical treatment Telemetry Cardiac ECHO DVT prophylaxis GI Prophylaxis Diagnosis/Plan: Subjective Subjective Comments Patient is still intubated As per RN, patient opens eyes spontaneously, moves left side, however, BP gets highly elevated and she becomes agitated EEG on 03/04/2017 revealed moderately encephalopathic pattern Labs revealed JEFF Active Medications Current Medications Medications (Trade) Dose Ordered Sig/Venecia Route Start Time Stop Time Status Last Admin (Lopressor Inj) 5 mg Q5M PRN IV PUSH 03/02/17 11:30 03/03/17 14:02 (Protonix Inj) 40 mg DAILY IV 03/03/17 09:00 03/04/17 08:12 (Duoneb Neb) 1 ampule Q4HR NEB INH 03/02/17 16:00 03/04/17 15:33 Miscellaneous Information 1 Q361D XX 03/02/17 12:30 (Chlorhexidine 2% Cloth) 3 pack Taper DAILY@04 TOP 03/03/17 04:00 02/27/18 03:59 03/04/17 04:00 (Chlorhexidine 2% Cloth) 3 pack UNSCH PRN TOP 03/02/17 12:30 (Leslie-Colace) 1 tab BID PO 03/02/17 21:00 03/04/17 08:12 (Milk Of Magnesia Liq) 30 ml Q12H PRN PO 03/02/17 12:30 (Senokot) 17.2 mg Q12H PRN PO 03/02/17 12:30 (Dulcolax Supp) 10 mg DAILY PRN RECTAL 03/02/17 12:30 (Lactulose Liq) 30 ml DAILY PRN PO 03/02/17 12:30 (D50w (Vial) Inj) 50 ml UNSCH PRN IV 03/02/17 12:30 (Glucagon Inj) 1 mg UNSCH PRN OTHER 03/02/17 12:30 (NovoLIN R SUPPLEMENTAL SCALE) 1 Q4H SQ 03/02/17 14:00 03/04/17 14:04 (Ofirmev 1000 Mg/ 100 ml Inj) 1,000 mg Q6H PRN IV 03/02/17 20:45 03/04/17 15:28 (Albuterol Neb) 2.5 mg Q2HR NEB PRN NEB 03/03/17 13:30 (Apresoline Inj) 10 mg Q1HR PRN IV PUSH 03/03/17 13:45 03/03/17 15:37 (Trandate Inj) 10 mg Q1HR PRN IV PUSH 03/03/17 13:45 (Nitroglycerin 2% Oint) 2 inch Q6HR PRN TOPICAL 03/03/17 13:45 Nicardipine HCl 25 mg/Sodium Chloride 260 ml @ 52 mls/hr TITRATE PRN IV 03/03/17 16:00 03/03/17 17:20 (Peridex 0.12% Liq) 15 ml BID@08,20 MT 03/03/17 20:00 03/04/17 08:13 Propofol 100 ml @ 2.937 mls/ hr TITRATE PRN IV 03/03/17 16:30 03/04/17 06:57 Fentanyl Citrate 250 ml @ 5 mls/hr TITRATE PRN IV 03/03/17 16:30 03/03/17 17:16 Nitroglycerin/ Dextrose 250 ml @ 1.5 mls/hr TITRATE PRN IV 03/03/17 17:00 (Edgardo Powder) 1 pack BID G-TUBE 03/04/17 21:00 (Levemir Inj) 10 units Q12HR SQ 03/04/17 11:00 03/04/17 13:00 Sodium Chloride 1,000 ml @ 84 mls/hr [id number] IV 03/04/17 12:00 03/04/17 13:01 Allergies Allergies Coded Allergies No Known Allergies (Unverified03/02/17) Review of Systems All other ROS: ROS reviewed as documented in chart Exam I&O / VS 03/04/17 03/04/17 03/05/17 14:59 22:59 06:59 Intake Total 500 ml Balance 500 ml Intake IV Total 500 ml Vital Signs Date Time Temp Pulse Resp B/P (MAP) Pulse Ox O2 Delivery O2 Flow Rate FiO2 03/04/17 15:34 99 40 03/04/17 15:00 85 03/04/17 15:00 102.0 84 16 160/78 (105) 98 03/04/17 13:35 98 40 03/04/17 12:00 40 03/04/17 12:00 100.6 83 16 168/78 (108) 98 03/04/17 09:53 97 40 03/04/17 08:00 40 03/04/17 08:00 98.8 76 16 181/80 (113) 100 03/04/17 07:57 40 03/04/17 07:51 98 40 03/04/17 07:00 99 Mechanical Ventilator 40 03/04/17 07:00 73 03/04/17 04:18 98 40 03/04/17 04:00 99.0 77 16 133/62 (85) 98 03/04/17 04:00 40 03/04/17 03:00 75 03/04/17 01:57 100 50 03/04/17 00:00 78 03/04/17 00:00 50 03/04/17 00:00 99.1 78 16 131/61 (84) 99 03/03/17 22:58 100 70 03/03/17 22:00 80 03/03/17 20:00 89 03/03/17 20:00 99.5 99 16 153/70 (97) 98 03/03/17 20:00 100 03/03/17 19:52 99 80 03/03/17 19:00 99 Mechanical Ventilator 80 03/03/17 19:00 99 16 140/64 (89) 99 03/03/17 18:00 99.3 97 16 175/57 (96) 93 03/03/17 17:20 103 164/71 03/03/17 17:00 96 24 206/91 (129) 96 03/03/17 16:54 96 100 Exam Comments Intubated and sedated Objective Radiology Results Last 72 hours Impressions Abdomen/Pelvis CT 03/04/17 0000 Signed Impressions: Service Date/Time: February 16:31 - CONCLUSION: 1. Enlarged uterus with multiple masses most likely fibroids and also appears to be large mass left lower quadrant could be ovarian mass versus exophytic fibroid and underlying malignancy should be excluded. 2. Bibasilar consolidation. . K. Joao Schmidt MD Renal Ultrasound 03/03/17 0000 Signed Impressions: Service Date/Time: Friday, March 03, 2017 17:58 - CONCLUSION: 1. Echogenic kidneys characteristic of medical renal disease with trace perinephric fluid. No hydronephrosis. 2. Abnormal cystic and solid lesions in the pelvis. Further evaluation with CT abdomen and pelvis recommended. Jerrell Quintero MD Head CT 03/03/17 0000 Signed Impressions: Service Date/Time: Friday, March 03, 2017 14:18 - CONCLUSION: Very faint areas of high density within the left posterior parietal parenchyma measuring approximately 1 cm each suggestive of possible faint areas of parenchymal or subarachnoid hemorrhage as well as diffuse effacement of the posterior parietal sulci and underlying scattered areas of decreased attenuation consistent with acute infarction of the left posterior parietal lobe. Humberto Santillan MD Chest X-Ray 03/03/17 0000 Signed Impressions: Service Date/Time: Friday, March 03, 2017 16:41 - CONCLUSION: 1. ET tube in good position. 2. Bilateral airspace opacities, similar to prior. Gonzalo Madison MD Chest X-Ray 03/03/17 0000 Signed Impressions: Service Date/Time: Friday, March 03, 2017 15:45 - CONCLUSION: 1. Increased interstitial markings suggesting some degree of vascular congestion or volume overload. 2. Improved inspiratory effort with resolving atelectatic changes in the left lung base. Micky Sauer MD Cerebral Arteriogram 03/02/17 1511 Signed Impressions: Service Date/Time: Thursday, March 02, 2017 12:44 - CONCLUSION: Successful embolectomy of the left MCA territory using a Solumbra technique as above. Micky Sauer MD Neck CTA 03/02/17 1121 Signed Impressions: Service Date/Time: Thursday, March 02, 2017 11:54 - CONCLUSION: 1. No evidence of hemodynamically significant lesion. There is 0-10%% stenosis bilaterally. Anthony Bourne MD Head/Neck CTA with Brain Perfusion 03/02/17 1121 Signed Impressions: Service Date/Time: Thursday, March 02, 2017 11:54 - CONCLUSION: 1. Flow volume mismatch involving the entire left middle cerebral artery distribution. The patient is to go to catheter angiography for thrombolysis Anthony Bourne MD Head CTA 03/02/17 1121 Signed Impressions: Service Date/Time: Thursday, March 02, 2017 11:54 - CONCLUSION: 1. Nonocclusive thrombus involving the left middle cerebral artery as above Anthony Bourne MD Head CT 03/02/17 0000 Signed Impressions: Service Date/Time: Thursday, March 02, 2017 11:07 - CONCLUSION: 1. Possible embolus to the left middle cerebral artery as above. CT angiography is recommended for further evaluation if clinically indicated. No acute hemorrhage is identified Anthony Bourne MD Chest X-Ray 03/02/17 0000 Signed Impressions: Service Date/Time: Thursday, March 02, 2017 16:57 - CONCLUSION: Left base infiltrate. Vinay Castellon MD Micro and Labs Laboratory Tests Test 03/03/17 18:14 03/04/17 04:09 03/04/17 12:05 Blood Gas Puncture Site RT RADIAL Blood Gas Patient Temperature 98.6 Blood Gas HCO3 17 Blood Gas Base Excess -7.9 Blood Gas Oxygen Saturation 95 Arterial Blood pH 7.32 Arterial Blood Partial Pressure CO2 35 Arterial Blood Partial Pressure O2 102 Arterial Blood Oxygen Content 15.1 Arterial Blood Carboxyhemoglobin 1.0 Arterial Blood Methemoglobin 1.1 Blood Gas Hemoglobin 11.2 Oxygen Delivery Device VENTILATOR Blood Gas Ventilator Setting PRVC/16/550/1.0/+5 Blood Gas Inspired Oxygen 100 White Blood Count 14.3 Red Blood Count 3.55 Hemoglobin 10.0 Hematocrit 31.3 Mean Corpuscular Volume 88.3 Mean Corpuscular Hemoglobin 28.1 Mean Corpuscular Hemoglobin Concent 31.8 Red Cell Distribution Width 15.5 Platelet Count 273 Mean Platelet Volume 9.1 Blood Urea Nitrogen 47 Creatinine 2.99 Random Glucose 272 Calcium Level 8.0 Sodium Level 143 Potassium Level 4.2 Chloride Level 112 Carbon Dioxide Level 19.7 Anion Gap 11 Estimat Glomerular Filtration Rate 16 Triglycerides Level 277 Cholesterol Level 150 LDL Cholesterol 53 HDL Cholesterol 42.0 Cholesterol/HDL Ratio 3.57 Urine Eosinophils NONE SEEN Urine Random Creatinine 123.3 Urine Random Sodium 29 Date/Time Source Procedure Growth Status 03/04/17 16:05 Blood Peripheral Aerobic Blood Culture Pending Received 03/04/17 16:05 Blood Peripheral Anaerobic Blood Culture Pending Received 03/04/17 12:20 Nasal Aspirate Influenza Types A,B Antigen (OTF) - Final NEGATIVE FOR FLU A AND B ANTIGEN.... Complete Linda Wheeler MD Mar 04, 2017 16:24
--- NOTE | 2017-03-04 17:00 | RADRPT ---
EXAM DATE/TIME: 03/04/2017 16:31 [facility] COMPARISON: No previous studies available for comparison. INDICATIONS : Pelvic mass ORAL CONTRAST: Prescribed oral contrast ingested. RADIATION DOSE: 16.69 CTDIvol (mGy) MEDICAL HISTORY : Cerebrovascular disease. Hypertension. Diabetes SURGICAL HISTORY : insulin pump ENCOUNTER: Initial ACUITY: 1 day PAIN SCALE: Non-responsive LOCATION: Abdomen TECHNIQUE: Volumetric scanning of the abdomen and pelvis was performed. Using automated exposure control and ad justment of the mA and/or kV according to patient size, radiation dose was kept as low as reasonably achievable to obtain optimal diagnostic quality images. DICOM format image data is available electro nically for review and comparison. FINDINGS: CT Abdomen: The spleen, pancreas, kidneys, adrenals are unremarkable. There is no evidence for any appreciable pa thological adenopathy, free fluid, or bowel obstruction. Bibasilar consolidation is present in the l noe bases with tiny bilateral pleural effusions. There is an approximate 2.5 cm simple cyst in the ri ght hepatic lobe. Approximate 3 cm mass is present in the left adrenal gland indeterminate. CT pelvis: There is an approximate 10.1 cm mass in the left lower quadrant that could potentially be a large exo phytic fibroid coming off the uterus or possibly a large ovarian mass projecting up into this area. I t has cystic components within it. Separately the patient's uterus appears enlarged measures 12.1 cm in size with masses within it as well. Normal ovarian tissue is not seen.. CONCLUSION: 1. Enlarged uterus with multiple masses most likely fibroids and also appears to be large mass left l ower quadrant could be ovarian mass versus exophytic fibroid and underlying malignancy should be excl uded. 2. Bibasilar consolidation. . Oziel Schmidt MD on March 04, 2017 at 16:51 Board Certified Radiologist. This report was verified electronically.
--- NOTE | 2017-03-04 17:39 | MG ---
cc: LAZ HOLDER MD Lab No: [id number] Date: 03/04/2017 Age: 66 Sex: F Race: DATE OF : 1950 HISTORY: 66-year-old history of possible stroke episode. PROCEDURE: A 34 Hz posterior rhythm 20-40 microvolts with overlying delta activity occurring at 1-2 Hz in a generalized fashion. Mild EEG variability reactivity noted. Limited driving with photic stimulation. Single lead EKG showing sinus rhythm. INTERPRETATION Moderate encephalopathy. Clinical correlation Laz Holder MD MG/shellie /5:26 PM /5:33 PM
[2017-03-04] MEDS: fentaNYL DRIP 250 ML IV PRN (18:38)
[2017-03-04] MEDS: JUVEN POWDER 1 PACK G-TUBE SCH (21:00)
[2017-03-04] MEDS: hydrALAZINE HCL 20 MG/ML VIAL IV PUSH PRN (23:42)
[2017-03-05] VITALS (24 sets, daily range): BP systolic 156–177; BP diastolic 71–76; PULSE 72–109; RESP 16; TEMP 98–102.4; O2SAT 93–100
[2017-03-05] MEDS: RESP: ALBUTEROL 2.5 MG/IPRATROPIUM 0.5 MG NEB (SCH) INH ×7 (00:16→23:35)
[2017-03-05] MEDS: INSULIN NovoLIN REGULAR SUPPLEMENTAL SCALE SQ SCH ×6 (03:22→22:00)
[2017-03-05] MEDS: CHLORHEXIDINE GLUCONATE 2 % 1 PACK (2 CLOTHS) TOP SCH (04:00)
--- NOTE | 2017-03-05 05:26 | RADRPT ---
EXAM DATE/TIME: 03/05/2017 03:35 [facility] COMPARISON: CHEST SINGLE AP, March 03, 2017, 16:41. INDICATIONS : Respiratory failure post stroke alert MEDICAL HISTORY : None. SURGICAL HISTORY : None. ENCOUNTER: Subsequent ACUITY: 3 days PAIN SCORE: Non-responsive. LOCATION: Bilateral chest FINDINGS: Stable ETT. Interval placement of nasogastric catheter with tip in the stomach. Continued patchy bila teral perihilar airspace disease with new left lower lobe airspace disease. Cardiomediastinal contour s are stable. Remainder of exam is unchanged. CONCLUSION: 1. Stable ETT. NGT in the stomach. 2. Stable bilateral perihilar airspace disease. 3. Interval left lower lobe airspace disease. Israel Gallegos MD on March 05, 2017 at 5:22 Board Certified Radiologist. This report was verified electronically.
--- NOTE | 2017-03-05 05:42 | RADRPT ---
EXAM DATE/TIME: 03/05/2017 05:08 [facility] COMPARISON: CT BRAIN W/O CONTRAST, March 03, 2017, 14:18. INDICATIONS : Follow up CVA. RADIATION DOSE: 45.78 CTDIvol (mGy) MEDICAL HISTORY : Cerebrovascular disease. SURGICAL HISTORY : None. ENCOUNTER: Subsequent ACUITY: 3 days PAIN SCALE: Non-responsive LOCATION: cranial TECHNIQUE: Multiple contiguous axial images were obtained of the head. Using automated exposure control and adj ustment of the mA and/or kV according to patient size, radiation dose was kept as low as reasonably a chievable to obtain optimal diagnostic quality images. DICOM format image data is available electro nically for review and comparison. FINDINGS: Redemonstration of diffuse hypodensity and sulcal effacement involving the left posterior temporopari etal mid to low convexities with ill-defined patchy hypodensities extending to more confluent region of sulcal effacement and hypodensity in the left anterior parietal mid convexities. The findings are consistent with evolution of large left MCA territory infarct. No significant intercurrent hemorrhage or midline shift. The ventricles are midline and stable in appearance. Brainstem and cerebellum are intact. Remainder of exam is unchanged. CONCLUSION: 1. Evolution of large left MCA territory infarct. 2. No significant intercurrent hemorrhage or herniation. Israel Gallegos MD on March 05, 2017 at 5:33 Board Certified Radiologist. This report was verified electronically.
[2017-03-05 05:52] LABS: AUTOMATED NEUTROPHIL # 13.2 TH/MM3 (1.8-7.7); BASOPHIL # 0.1 TH/MM3 (0-0.2); BASOPHIL % 0.4 % (0.0-2.0); EOSINOPHIL # 0.2 TH/MM3 (0-0.4); EOSINOPHIL % 1.1 % (0.0-4.0); HEMATOCRIT 30.5 % (35.0-46.0); HEMO FLAGS DIFF FINAL; LYMPH % 6.4 % (9.0-44.0); MEAN CELL VOLUME 86.1 FL (80.0-100.0); MEAN CORPUSCULAR HEMOGLOBIN 27.4 PG (27.0-34.0); MEAN CORPUSCULAR HGB CONC 31.9 % (32.0-36.0); NEUT % 85.1 % (16.0-70.0); PLATELET COUNT 261 TH/MM3 (150-450); RED BLOOD COUNT 3.54 MIL/MM3 (4.00-5.30); RED CELL DISTRIBUTION WIDTH 15.4 % (11.6-17.2); WHITE BLOOD COUNT 15.5 TH/MM3 (4.0-11.0)
[2017-03-05] MEDS: PROPOFOL 1000 MG/100 ML INJ 100 ML IV PRN ×2 (05:58→23:35)
[2017-03-05] MEDS: SODIUM CHLOR 0.9% 1000 ML INJ 1,000 ML IV SCH ×3 (06:09→23:35)
[2017-03-05 06:18] LABS: ANION GAP 12 MEQ/L (5-15); AST (GOT) 20 U/L (15-37); BICARBONATE 18.2 MEQ/L (21.0-32.0); BLOOD UREA NITROGEN 54 MG/DL (7-18); CHLORIDE 108 MEQ/L (98-107); GLOMERULAR FILTRATION RATE 17 ML/MIN (>89); MAGNESIUM 2.2 MG/DL (1.5-2.5); POTASSIUM 3.7 MEQ/L (3.5-5.1); SODIUM (NA) 138 MEQ/L (136-145)
[2017-03-05 06:19] LABS: ALT (GPT) 15 U/L (10-53)
[2017-03-05 06:20] LABS: ALKALINE PHOSPHATASE 82 U/L (45-117); TOTAL BILIRUBIN ADULT 0.3 MG/DL (0.2-1.0)
[2017-03-05] MEDS: CHLORHEXIDINE 0.12% (ORAL KIT) 15 ML CUP MT SCH ×2 (08:00→20:50)
[2017-03-05 08:43] LABS: BACTERIA, URINE MOD /hpf; BLOOD, URINE MOD (NEG); COMMENT (UR) CATH-CULTURE IND; CULTURE IF INDICATED CATH CULTURE IND; GLUCOSE,URINE 300 mg/dL (NEG); KETONE, URINE NEG (NEG); MUCUS URINE FEW /lpf (OCC); NITRITE,URINE NEG (NEG); SQUAMOUS EPITHELIAL CELL URINE 6 /hpf (0-5); TRANSITIONAL EPI CELLS, URINE 2 /hpf; URINE COLOR YELLOW (YELLW/STRAW)
--- NOTE | 2017-03-05 08:53 | HHI.CCPN ---
Subjective Remarks/Hospital Course The patient is a 66-year-old female with unknown past medical history who presented to [facility] emergency department by EMS as a stroke alert. The patient was staying at the Hotel and was last seen normal at approximately 09:50 a.m. when she was walking to the patio and then she stumbled back at 11:11 a.m. according to staff disoriented. When EMS arrived she was noted to have right facial droop and right-sided weakness with aphasia. On arrival to the emergency room she was hypertensive with a blood pressure of 244/113. The patient was given Lopressor 5 mg IV x3 and placed on Cardene drip. CT scan of the brain showed possible embolus to the left MCA. She also had a CTA of the brain which showed nonocclusive thrombus involving the left MCA and CTA with brain perfusion showed flow-volume mismatch involving the entire left MCA distribution. She was seen by Dr. Wheeler from neurology service and the patient went to interventional radiology to undergo a catheterization, Angiography for thrombolysis and cough retraction. When seen she was on Cardene drip at 10 mg an hour with current blood pressure of 205/92. The patient is on 2 liters oxygen with saturation of 98% and a pulse of 72. 03/03: Early resting in bed. Verbalizes a few words. Right-sided remains flaccid with right-sided facial droop. Noted patient is insulin pump. Subjective 03/04: Afebrile. Intubated yesterday due to acute hypoxemic respiratory failure. Currently in acute kidney injury possibly secondary to dye/IV contrast. Nonoliguric currently with 1225 cc past 24 hours. Following commands unilaterally with left upper and lower extremity. Right upper and lower extremity flaccid. 03/05: No improvement in neuro status. CT head with some edema. Objective Vital Signs Date Time Temp Pulse Resp B/P (MAP) Pulse Ox O2 Delivery O2 Flow Rate FiO2 03/05/17 08:31 40 03/05/17 08:31 95 03/05/17 06:00 74 03/05/17 04:00 98.9 16 156/71 (99) 03/04/17 20:00 Mechanical Ventilator 03/03/17 08:07 4.00 Intake and Output 03/05/17 03/05/17 03/06/17 08:00 16:00 00:00 Intake Total 2006 ml Output Total 650 ml Balance 1356 ml Result Diagram: 03/05/17 0409 03/05/17 0409 Other Results Microbiology Date/Time Source Procedure Growth Status 03/04/17 12:20 Nasal Aspirate Influenza Types A,B Antigen (OTF) - Final NEGATIVE FOR FLU A AND B ANTIGEN.... Complete Imaging Last Impressions Renal Ultrasound 03/03/17 0000 Signed Impressions: Service Date/Time: Friday, March 03, 2017 17:58 - CONCLUSION: 1. Echogenic kidneys characteristic of medical renal disease with trace perinephric fluid. No hydronephrosis. 2. Abnormal cystic and solid lesions in the pelvis. Further evaluation with CT abdomen and pelvis recommended. Jerrell Quintero MD Head CT 03/03/17 0000 Signed Impressions: Service Date/Time: Friday, March 03, 2017 14:18 - CONCLUSION: Very faint areas of high density within the left posterior parietal parenchyma measuring approximately 1 cm each suggestive of possible faint areas of parenchymal or subarachnoid hemorrhage as well as diffuse effacement of the posterior parietal sulci and underlying scattered areas of decreased attenuation consistent with acute infarction of the left posterior parietal lobe. Humberto Santillan MD Chest X-Ray 03/03/17 0000 Signed Impressions: Service Date/Time: Friday, March 03, 2017 16:41 - CONCLUSION: 1. ET tube in good position. 2. Bilateral airspace opacities, similar to prior. Gonzalo Madison MD Cerebral Arteriogram 03/02/17 1511 Signed Impressions: Service Date/Time: Thursday, March 02, 2017 12:44 - CONCLUSION: Successful embolectomy of the left MCA territory using a Solumbra technique as above. Micky Sauer MD Neck CTA 03/02/17 1121 Signed Impressions: Service Date/Time: Thursday, March 02, 2017 11:54 - CONCLUSION: 1. No evidence of hemodynamically significant lesion. There is 0-10%% stenosis bilaterally. Anthony Bourne MD Head/Neck CTA with Brain Perfusion 03/02/17 1121 Signed Impressions: Service Date/Time: Thursday, March 02, 2017 11:54 - CONCLUSION: 1. Flow volume mismatch involving the entire left middle cerebral artery distribution. The patient is to go to catheter angiography for thrombolysis Anthony Bourne MD Head CTA 03/02/17 1121 Signed Impressions: Service Date/Time: Thursday, March 02, 2017 11:54 - CONCLUSION: 1. Nonocclusive thrombus involving the left middle cerebral artery as above Anthony Bourne MD Objective Remarks GENERAL: 66 year old female, currently resting in bed in no acute distress orotracheally intubated SKIN: Warm and dry. No rash HEAD: Atraumatic. Normocephalic. EYES: Pupils equal and round about 3 mm bilaterally and reactive. No scleral icterus. No injection or drainage. ENT: No nasal bleeding or discharge. Mucous membranes pink and moist. Oropharynx without erythema or exudates NECK: Trachea midline. No JVD. CARDIOVASCULAR: Regular rate and rhythm. S1, S2 no S4 without murmur RESPIRATORY: No accessory muscle use. Clear to auscultation. Breath sounds equal bilaterally. GASTROINTESTINAL: Abdomen soft, non-tender, nondistended. Hepatic and splenic margins not palpable. MUSCULOSKELETAL: Extremities without significant peripheral edema. No obvious deformities. NEUROLOGICAL: Opens eyes, no focus or track. Right facial droop. Right-sided flaccid. Right flaccid. Spontaneously moving left upper and lower extremity. Failed CPAP yesterday promptly. 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 Repeat head CT 03/03 revealed a left parietal CVA with petechial hemorrhage surrounding Neurology/Dr. Wheeler following Will check EEG today 03/04 CV: Hypertension Hypertriglyceridemia of 277 Currently on as needed labetalol/hydralazine and Nitropaste to maintain systolic blood pressure less than 160/: Blood pressure goal recommendation and discussion per neurology 03/03 Home medications atenolol 50 mill grams daily and valsartan/HCTZ 320/25 one tablet daily 2-D echocardiogram revealed EF 55%. Mild LVH Initiate lipid-lowering agent once clinically appropriate Resp: Acute hypoxemic respiratory failure [facility] /07/02/39 Ventilator bundle Albuterol/ipratropium aerosols every 6 hours and albuterol aerosols every 2 hours. Dyspnea Spontaneous breathing trials daily Follow-up chest x-ray in a.m. GI: Gastroesophageal reflux disease Initiate tube feeding with Nepro goal 40 cc an hour Pantoprazole for GI prophylaxis. On omeprazole at home 20 mg daily Leslie-Colace one tablet twice a day for bowel regimen : Zapien catheter if indicated for accurate I's and O's in a critically ill patient Endo: Diabetes mellitus Discontinue insulin pump. Restart when clinically indicated. Started on detemir 10 units subcutaneous twice a day Sliding-scale insulin with Accu-Cheks to maintain euglycemia/low regimen every 4 hours with Novulog Renal: Acute kidney injury question underlying chronic kidney disease Currently normal saline 84 cc an hour Did receive IV dye for CT angiogram Check urine electrolytes and eosinophils. Renal ultrasound 03/03 revealed medical renal disease. Noted's cystic versus solid mass and pelvis. Recommended CT pelvis. Heme: Leukocytosis Monitor CBC daily. Follow trends ID: Monitor for infection MSK: Vitamin D deficiency Holding calcitriol 0.25 mg daily and ergocalciferol 2000 units daily. Resume when clinically indicated FEN: Replace electrolytes as clinically indicated Access - Utilize peripheral IV. Central line if indicated Prophylaxis - GI - pantoprazole - DVT - SCD/likely protocol prophylaxis vascular embolectomy Overall impression: Looks like a completed and large dominant hemisphere CVA. Ever Leong MD Mar 05, 2017 08:53
[2017-03-05] MEDS: DOCUSATE SODIUM 50 MG/SENNA 8.6 MG TAB PO SCH ×2 (09:00→20:50)
[2017-03-05] MEDS: JUVEN POWDER 1 PACK G-TUBE SCH ×2 (09:00→20:50)
[2017-03-05] MEDS: PANTOPRAZOLE SODIUM 40 MG VIAL IV SCH (09:41)
[2017-03-05] MEDS: INSULIN DETEMIR 100 UNITS/ML VIAL SQ SCH ×2 (09:42→21:00)
[2017-03-05] MEDS: ACETAMINOPHEN 1000 MG/100 ML VIAL IV PRN (20:51)
[2017-03-06] VITALS (18 sets, daily range): BP systolic 142–181; BP diastolic 63–79; PULSE 71–110; RESP 15–19; TEMP 99–101.3; O2SAT 90–99
[2017-03-06] MEDS: INSULIN NovoLIN REGULAR SUPPLEMENTAL SCALE SQ SCH ×3 (02:00→09:05)
[2017-03-06] MEDS: RESP: ALBUTEROL 2.5 MG/IPRATROPIUM 0.5 MG NEB (SCH) INH ×4 (03:13→15:57)
[2017-03-06] MEDS: fentaNYL DRIP 250 ML IV PRN ×2 (03:43→17:24)
[2017-03-06] MEDS: PROPOFOL 1000 MG/100 ML INJ 100 ML IV PRN ×3 (03:44→20:30)
[2017-03-06] MEDS: CHLORHEXIDINE GLUCONATE 2 % 1 PACK (2 CLOTHS) TOP SCH (04:00)
[2017-03-06 05:01] LABS: BICARBONATE 18.3 MEQ/L (21.0-32.0); POTASSIUM 3.8 MEQ/L (3.5-5.1)
[2017-03-06] MEDS: CHLORHEXIDINE 0.12% (ORAL KIT) 15 ML CUP MT SCH ×2 (08:00→20:32)
[2017-03-06] MEDS: JUVEN POWDER 1 PACK G-TUBE SCH ×2 (09:00→20:32)
[2017-03-06] MEDS: DOCUSATE SODIUM 50 MG/SENNA 8.6 MG TAB PO SCH ×2 (09:00→20:31)
[2017-03-06] MEDS: PANTOPRAZOLE SODIUM 40 MG VIAL IV SCH (09:00)
[2017-03-06] MEDS: INSULIN DETEMIR 100 UNITS/ML VIAL SQ SCH ×2 (09:00→20:32)
[2017-03-06] MEDS ORDERED: DEXTROSE 50% IN WATER 50 ML VIAL(D50) IV PRN (09:30)
[2017-03-06] MEDS ORDERED: GLUCAGON 1 MG/ML VIAL IM/SQ PRN (09:30)
--- NOTE | 2017-03-06 10:35 | HHI.CCPN ---
Subjective Remarks/Hospital Course The patient is a 66-year-old female with unknown past medical history who presented to [facility] emergency department by EMS as a stroke alert. The patient was staying at the Hotel and was last seen normal at approximately 09:50 a.m. when she was walking to the patio and then she stumbled back at 11:11 a.m. according to staff disoriented. When EMS arrived she was noted to have right facial droop and right-sided weakness with aphasia. On arrival to the emergency room she was hypertensive with a blood pressure of 244/113. The patient was given Lopressor 5 mg IV x3 and placed on Cardene drip. CT scan of the brain showed possible embolus to the left MCA. She also had a CTA of the brain which showed nonocclusive thrombus involving the left MCA and CTA with brain perfusion showed flow-volume mismatch involving the entire left MCA distribution. She was seen by Dr. Wheeler from neurology service and the patient went to interventional radiology to undergo a catheterization, Angiography for thrombolysis and cough retraction. When seen she was on Cardene drip at 10 mg an hour with current blood pressure of 205/92. The patient is on 2 liters oxygen with saturation of 98% and a pulse of 72. 03/03: Early resting in bed. Verbalizes a few words. Right-sided remains flaccid with right-sided facial droop. Noted patient is insulin pump. Subjective 03/04: Afebrile. Intubated yesterday due to acute hypoxemic respiratory failure. Currently in acute kidney injury possibly secondary to dye/IV contrast. Nonoliguric currently with 1225 cc past 24 hours. Following commands unilaterally with left upper and lower extremity. Right upper and lower extremity flaccid. 03/05: No improvement in neuro status. CT head with some edema. 03/06: No neurological improvement. Does not focus, track, or respond. Her insulin pump is off, sugars elevated Objective Vital Signs Date Time Temp Pulse Resp B/P (MAP) Pulse Ox O2 Delivery O2 Flow Rate FiO2 03/06/17 08:57 40 03/06/17 08:14 94 03/06/17 08:00 99.5 110 19 181/79 (113) 03/05/17 19:00 Mechanical Ventilator 03/03/17 08:07 4.00 Intake and Output 03/06/17 03/06/17 03/06/17 07:59 15:59 23:59 Intake Total 2033 ml Output Total 1150 ml Balance 883 ml Result Diagram: 03/05/17 0409 03/06/17 0418 Other Results Microbiology Date/Time Source Procedure Growth Status 03/04/17 12:20 Nasal Aspirate Influenza Types A,B Antigen (OTF) - Final NEGATIVE FOR FLU A AND B ANTIGEN.... Complete Imaging Last Impressions Renal Ultrasound 03/03/17 0000 Signed Impressions: Service Date/Time: Friday, March 03, 2017 17:58 - CONCLUSION: 1. Echogenic kidneys characteristic of medical renal disease with trace perinephric fluid. No hydronephrosis. 2. Abnormal cystic and solid lesions in the pelvis. Further evaluation with CT abdomen and pelvis recommended. Jerrell Quintero MD Head CT 03/03/17 0000 Signed Impressions: Service Date/Time: Friday, March 03, 2017 14:18 - CONCLUSION: Very faint areas of high density within the left posterior parietal parenchyma measuring approximately 1 cm each suggestive of possible faint areas of parenchymal or subarachnoid hemorrhage as well as diffuse effacement of the posterior parietal sulci and underlying scattered areas of decreased attenuation consistent with acute infarction of the left posterior parietal lobe. Humberto Santillan MD Chest X-Ray 03/03/17 0000 Signed Impressions: Service Date/Time: Friday, March 03, 2017 16:41 - CONCLUSION: 1. ET tube in good position. 2. Bilateral airspace opacities, similar to prior. Gonzalo Madison MD Cerebral Arteriogram 03/02/17 1511 Signed Impressions: Service Date/Time: Thursday, March 02, 2017 12:44 - CONCLUSION: Successful embolectomy of the left MCA territory using a Solumbra technique as above. Micky Sauer MD Neck CTA 03/02/17 1121 Signed Impressions: Service Date/Time: Thursday, March 02, 2017 11:54 - CONCLUSION: 1. No evidence of hemodynamically significant lesion. There is 0-10%% stenosis bilaterally. Anthony Bourne MD Head/Neck CTA with Brain Perfusion 03/02/17 1121 Signed Impressions: Service Date/Time: Thursday, March 02, 2017 11:54 - CONCLUSION: 1. Flow volume mismatch involving the entire left middle cerebral artery distribution. The patient is to go to catheter angiography for thrombolysis Atnhony Bourne MD Head CTA 03/02/17 1121 Signed Impressions: Service Date/Time: Thursday, March 02, 2017 11:54 - CONCLUSION: 1. Nonocclusive thrombus involving the left middle cerebral artery as above Anthony Bourne MD Objective Remarks GENERAL: 66 year old female, currently resting in bed in no acute distress orotracheally intubated SKIN: Warm and dry. No rash HEAD: Atraumatic. Normocephalic. EYES: Pupils equal and round about 3 mm bilaterally and reactive. No scleral icterus. No injection or drainage. ENT: No nasal bleeding or discharge. Mucous membranes pink and moist. Oropharynx without erythema or exudates NECK: Trachea midline. No JVD. CARDIOVASCULAR: Regular rate and rhythm. S1, S2 no S4 without murmur RESPIRATORY: No accessory muscle use. Clear to auscultation. Breath sounds equal bilaterally. GASTROINTESTINAL: Abdomen soft, non-tender, nondistended. Hepatic and splenic margins not palpable. MUSCULOSKELETAL: Extremities without significant peripheral edema. No obvious deformities. NEUROLOGICAL: Opens eyes, no focus or track. Right facial droop. Right-side arm flaccid. Right leg withdraws. Spontaneously moving left upper and lower extremity. Tolerated CPAP for 1 hour. 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 Repeat head CT 03/03 revealed a left parietal CVA with petechial hemorrhage surrounding Neurology/Dr. Wheeler following Will check EEG today 03/04 CV: Hypertension Hypertriglyceridemia of 277 Currently on as needed labetalol/hydralazine and Nitropaste to maintain systolic blood pressure less than 160/: Blood pressure goal recommendation and discussion per neurology 03/03 Home medications atenolol 50 mill grams daily and valsartan/HCTZ 320/25 one tablet daily 2-D echocardiogram revealed EF 55%. Mild LVH Initiate lipid-lowering agent once clinically appropriate Resp: Acute hypoxemic respiratory failure PRVC 16/550///40 Ventilator bundle Albuterol/ipratropium aerosols every 6 hours and albuterol aerosols every 2 hours. Dyspnea Spontaneous breathing trials daily Follow-up chest x-ray in a.m. GI: Gastroesophageal reflux disease Initiate tube feeding with Nepro goal 40 cc an hour Pantoprazole for GI prophylaxis. On omeprazole at home 20 mg daily Leslie-Colace one tablet twice a day for bowel regimen Decrease TFs to 30 until glucose control improves. : Zapien catheter if indicated for accurate I's and O's in a critically ill patient Endo: Diabetes mellitus Discontinue insulin pump. Restart when clinically indicated. Started on detemir 10 units subcutaneous twice a day Sliding-scale insulin with Accu-Cheks to maintain euglycemia/low regimen every 4 hours with Novulog Renal: Acute kidney injury question underlying chronic kidney disease Currently normal saline 84 cc an hour Did receive IV dye for CT angiogram Check urine electrolytes and eosinophils. Renal ultrasound 03/03 revealed medical renal disease. Noted's cystic versus solid mass and pelvis. Recommended CT pelvis. Heme: Leukocytosis Monitor CBC daily. Follow trends ID: Monitor for infection MSK: Vitamin D deficiency Holding calcitriol 0.25 mg daily and ergocalciferol 2000 units daily. Resume when clinically indicated FEN: Replace electrolytes as clinically indicated Access - Utilize peripheral IV. Central line if indicated Prophylaxis - GI - pantoprazole - DVT - SCD/likely protocol prophylaxis vascular embolectomy Overall impression: Looks like a completed and large, dominant hemisphere CVA. Glucose intolerance. Elevated CEA. Ever Leong MD Mar 06, 2017 10:35
[2017-03-06] MEDS: SODIUM CHLOR 0.9% 1000 ML INJ 1,000 ML IV SCH ×2 (11:40→20:33)
[2017-03-06] MEDS: INSULIN ASPART SUPPLEMENTAL SCALE SQ SCH ×3 (11:56→20:00)
[2017-03-06] MEDS ORDERED: ACETAMINOPHEN 650 MG/20.3 ML UDC PO PRN (12:00)
--- NOTE | 2017-03-06 13:26 | HHI.PR ---
Review/Management Diagnosis Acute ischemic stroke left MCA/M2 s/p clot extraction and iv tPA on 03/02/2017 Hypoxemic respiratory failure Plan Neuro-checks Q1h Aspirin 81mg daily Continue supportive medical treatment Telemetry Cardiac ECHO DVT prophylaxis GI Prophylaxis Diagnosis/Plan: (1) Received intravenous tissue plasminogen activator (t-PA) inemergency department ICD Codes: Z92.82 - Status post administration of tPA (rtPA) in a different facility within the last 24 hours prior to admission to current facility Status: Acute Plan: s/o iv tpa, s/p left mca embolectomy recs wean off sedation/extubate per [facility] f/u eeg, ct brain difficult exam on sedation (2) Stroke due to embolism of left middle cerebral artery ICD Codes: I63.412 - Cerebral infarction due to embolism of left middle cerebral artery Status: Acute (3) HTN (hypertension) ICD Codes: I10 - Essential (primary) hypertension (4) Respiratory failure ICD Codes: J96.90 - Respiratory failure, unspecified, unspecified whether with hypoxia or hypercapnia Subjective Subjective Comments No acute events reported xcover Active Medications Current Medications Medications (Trade) Dose Ordered Sig/Venecia Route Start Time Stop Time Status Last Admin (Lopressor Inj) 5 mg Q5M PRN IV PUSH 03/02/17 11:30 03/03/17 14:02 (Protonix Inj) 40 mg DAILY IV 03/03/17 09:00 03/06/17 09:00 (Duoneb Neb) 1 ampule Q4HR NEB INH 03/02/17 16:00 03/06/17 11:33 Miscellaneous Information 1 Q361D XX 03/02/17 12:30 (Chlorhexidine 2% Cloth) 3 pack Taper DAILY@04 TOP 03/03/17 04:00 02/27/18 03:59 03/06/17 04:00 (Chlorhexidine 2% Cloth) 3 pack UNSCH PRN TOP 03/02/17 12:30 (Leslie-Colace) 1 tab BID PO 03/02/17 21:00 03/06/17 09:00 (Milk Of Magnesia Liq) 30 ml Q12H PRN PO 03/02/17 12:30 (Senokot) 17.2 mg Q12H PRN PO 03/02/17 12:30 (Dulcolax Supp) 10 mg DAILY PRN RECTAL 03/02/17 12:30 (Lactulose Liq) 30 ml DAILY PRN PO 03/02/17 12:30 (Ofirmev 1000 Mg/ 100 ml Inj) 1,000 mg Q6H PRN IV 03/02/17 20:45 03/05/17 20:51 (Albuterol Neb) 2.5 mg Q2HR NEB PRN NEB 03/03/17 13:30 (Apresoline Inj) 10 mg Q1HR PRN IV PUSH 03/03/17 13:45 03/04/17 23:42 (Trandate Inj) 10 mg Q1HR PRN IV PUSH 03/03/17 13:45 (Nitroglycerin 2% Oint) 2 inch Q6HR PRN TOPICAL 03/03/17 13:45 Nicardipine HCl 25 mg/Sodium Chloride 260 ml @ 52 mls/hr TITRATE PRN IV 03/03/17 16:00 03/03/17 17:20 (Peridex 0.12% Liq) 15 ml BID@08,20 MT 03/03/17 20:00 03/06/17 08:00 Propofol 100 ml @ 2.937 mls/ hr TITRATE PRN IV 03/03/17 16:30 03/06/17 03:44 Fentanyl Citrate 250 ml @ 5 mls/hr TITRATE PRN IV 03/03/17 16:30 03/06/17 03:43 Nitroglycerin/ Dextrose 250 ml @ 1.5 mls/hr TITRATE PRN IV 03/03/17 17:00 (Edgardo Powder) 1 pack BID G-TUBE 03/04/17 21:00 03/06/17 09:00 Sodium Chloride 1,000 ml @ 84 mls/hr [id number] IV 03/04/17 12:00 03/06/17 11:40 (Levemir Inj) 25 units Q12HR SQ 03/06/17 21:00 (NovoLOG SUPPLEMENTAL SCALE) 1 Q4HR SQ 03/06/17 12:00 03/06/17 11:56 (D50w (Vial) Inj) 25 ml UNSCH PRN IV 03/06/17 09:30 (Glucagon Inj) 1 mg UNSCH PRN IM/SQ 03/06/17 09:30 (Tylenol 650 Mg/ 20 ml Liq) 650 mg Q4H PRN PO 03/06/17 12:00 03/06/17 12:40 Allergies Allergies Coded Allergies No Known Allergies (Unverified03/02/17) Review of Systems All other ROS: Unable to obtain Exam I&O / VS Vital Signs Date Time Temp Pulse Resp B/P (MAP) Pulse Ox O2 Delivery O2 Flow Rate FiO2 03/06/17 12:00 99.5 95 15 157/71 (99) 95 03/06/17 12:00 55 03/06/17 11:34 95 55 03/06/17 11:00 95 03/06/17 08:57 40 03/06/17 08:14 94 40 03/06/17 08:00 99.5 110 19 181/79 (113) 90 03/06/17 08:00 40 03/06/17 07:00 78 03/06/17 04:05 99 40 03/06/17 04:00 99.0 78 16 157/71 (99) 96 03/06/17 04:00 40 03/06/17 03:00 73 03/06/17 00:00 99.8 71 16 144/65 (91) 98 03/06/17 00:00 40 03/05/17 23:35 99 40 03/05/17 23:00 72 03/05/17 22:38 98 40 03/05/17 20:07 96 40 03/05/17 20:00 40 03/05/17 20:00 102.4 85 16 163/71 (101) 96 03/05/17 19:30 86 03/05/17 19:00 96 Mechanical Ventilator 40 03/05/17 16:00 98.0 90 16 165/72 (103) 95 03/05/17 16:00 40 03/05/17 15:03 96 40 03/05/17 15:00 94 Exam Comments intubated, on propofol/fentanyl gtt's, stupor state, not following, mild left gaze preference, ou 3-2mm, rt hemiplegia, localizes with left side, planter extensor on rt side Objective Micro and Labs Laboratory Tests Test 03/06/17 04:18 Blood Urea Nitrogen 57 Creatinine 2.52 Random Glucose 354 Calcium Level 8.3 Sodium Level 144 Potassium Level 3.8 Chloride Level 114 Carbon Dioxide Level 18.3 Anion Gap 12 Estimat Glomerular Filtration Rate 19 Date/Time Source Procedure Growth Status 03/04/17 16:05 Blood Peripheral Aerobic Blood Culture - Preliminary NO GROWTH IN 2 DAYS Resulted 03/04/17 16:05 Blood Peripheral Anaerobic Blood Culture - Preliminary NO GROWTH IN 2 DAYS Resulted 03/04/17 12:20 Nasal Aspirate Influenza Types A,B Antigen (OTF) - Final NEGATIVE FOR FLU A AND B ANTIGEN.... Complete 03/04/17 12:05 Urine Catheterized Urine Urine Culture - Preliminary NO GROWTH IN 24 HOURS. Resulted Zoltan Rizo MD Mar 06, 2017 13:26
[2017-03-06] MEDS ORDERED: ASPIRIN 300 MG SUPP RECTAL SCH (13:30)
--- NOTE | 2017-03-06 16:46 | RADRPT ---
EXAM DATE/TIME: 03/06/2017 15:55 [place] COMPARISON: CT BRAIN W/O CONTRAST, March 03, 2017, 14:18. CT BRAIN W/O CONTRAST, March 05, 2017, 5:08. INDICATIONS : Evaluate stroke RADIATION DOSE: 48.39 CTDIvol (mGy) MEDICAL HISTORY : Cerebrovascular disease. Hypertension. Diabetes mellitus type 1. SURGICAL HISTORY : Non-responsive. ENCOUNTER: Initial ACUITY: 1 day PAIN SCALE: Non-responsive LOCATION: cranial TECHNIQUE: Multiple contiguous axial images were obtained of the head. Using automated exposure control and adj ustment of the mA and/or kV according to patient size, radiation dose was kept as low as reasonably a chievable to obtain optimal diagnostic quality images. DICOM format image data is available electro nically for review and comparison. FINDINGS: Multiple areas of hypodensity in the left frontal, parietal, and temporal regions are again seen with no significant interval change. No change in mass effect. Ventricles within normal limits. Several p unctate/linear areas of hyperdensity are seen in the left parietal lobe in the area of infarct. This finding is similar to the prior brain CT findings of 03/03/2017. CONCLUSION: Left-sided MCA distribution infarct again seen. Several punctate/linear faint hyperdensities are seen in the left parietal region similar to the prior study of 03/03/2017 indicating possible petechial hem orrhage. No change in mass effect. Sang Garcia MD on March 06, 2017 at 16:40 Board Certified Radiologist. This report was verified electronically.
[2017-03-07] VITALS (20 sets, daily range): BP systolic 146–167; BP diastolic 66–74; PULSE 68–83; RESP 14–16; TEMP 98.9–100.1; O2SAT 94–100
[2017-03-07] MEDS: PROPOFOL 1000 MG/100 ML INJ 100 ML IV PRN ×5 (00:59→21:40)
[2017-03-07] MEDS: CHLORHEXIDINE GLUCONATE 2 % 1 PACK (2 CLOTHS) TOP SCH (03:14)
[2017-03-07] MEDS: INSULIN ASPART SUPPLEMENTAL SCALE SQ SCH ×6 (04:00→19:48)
[2017-03-07] MEDS: hydrALAZINE HCL 20 MG/ML VIAL IV PUSH PRN (04:26)
[2017-03-07 06:08] LABS: BICARBONATE 18.5 MEQ/L (21.0-32.0); POTASSIUM 3.9 MEQ/L (3.5-5.1)
--- NOTE | 2017-03-07 08:24 | HHI.PR ---
Review/Management Diagnosis Acute ischemic stroke left MCA/M2 s/p clot extraction and iv tPA on 03/02/2017 Hypoxemic respiratory failure Plan Neuro-checks Q1h Aspirin 81mg daily Continue supportive medical treatment Telemetry Cardiac ECHO DVT prophylaxis GI Prophylaxis Diagnosis/Plan: (1) Received intravenous tissue plasminogen activator (t-PA) inemergency department ICD Codes: Z92.82 - Status post administration of tPA (rtPA) in a different facility within the last 24 hours prior to admission to current facility Status: Acute Plan: s/p iv tpa, s/p left mca embolectomy mild to moderate stroke recs wean off sedation/extubate per [facility] f/u eeg-pending repeat ct brain- stable will start aspirin Dr. Wheeler to follow (2) Stroke due to embolism of left middle cerebral artery ICD Codes: I63.412 - Cerebral infarction due to embolism of left middle cerebral artery Status: Acute (3) HTN (hypertension) ICD Codes: I10 - Essential (primary) hypertension Status: Chronic (4) Respiratory failure ICD Codes: J96.90 - Respiratory failure, unspecified, unspecified whether with hypoxia or hypercapnia Status: Acute Subjective Subjective Comments No acute events reported Active Medications Current Medications Medications (Trade) Dose Ordered Sig/Venecia Route Start Time Stop Time Status Last Admin (Lopressor Inj) 5 mg Q5M PRN IV PUSH 03/02/17 11:30 03/03/17 14:02 (Protonix Inj) 40 mg DAILY IV 03/03/17 09:00 03/06/17 09:00 Miscellaneous Information 1 Q361D XX 03/02/17 12:30 (Chlorhexidine 2% Cloth) 3 pack Taper DAILY@04 TOP 03/03/17 04:00 02/27/18 03:59 03/06/17 04:00 (Chlorhexidine 2% Cloth) 3 pack UNSCH PRN TOP 03/02/17 12:30 (Leslie-Colace) 1 tab BID PO 03/02/17 21:00 03/06/17 20:31 (Milk Of Magnesia Liq) 30 ml Q12H PRN PO 03/02/17 12:30 (Senokot) 17.2 mg Q12H PRN PO 03/02/17 12:30 (Dulcolax Supp) 10 mg DAILY PRN RECTAL 03/02/17 12:30 (Lactulose Liq) 30 ml DAILY PRN PO 03/02/17 12:30 (Ofirmev 1000 Mg/ 100 ml Inj) 1,000 mg Q6H PRN IV 03/02/17 20:45 03/05/17 20:51 (Albuterol Neb) 2.5 mg Q2HR NEB PRN NEB 03/03/17 13:30 (Apresoline Inj) 10 mg Q1HR PRN IV PUSH 03/03/17 13:45 03/07/17 04:26 (Trandate Inj) 10 mg Q1HR PRN IV PUSH 03/03/17 13:45 (Nitroglycerin 2% Oint) 2 inch Q6HR PRN TOPICAL 03/03/17 13:45 Nicardipine HCl 25 mg/Sodium Chloride 260 ml @ 52 mls/hr TITRATE PRN IV 03/03/17 16:00 03/03/17 17:20 (Peridex 0.12% Liq) 15 ml BID@08,20 MT 03/03/17 20:00 03/06/17 20:32 Propofol 100 ml @ 2.937 mls/ hr TITRATE PRN IV 03/03/17 16:30 03/07/17 05:15 Fentanyl Citrate 250 ml @ 5 mls/hr TITRATE PRN IV 03/03/17 16:30 03/06/17 17:24 Nitroglycerin/ Dextrose 250 ml @ 1.5 mls/hr TITRATE PRN IV 03/03/17 17:00 (Edgardo Powder) 1 pack BID G-TUBE 03/04/17 21:00 03/06/17 20:32 Sodium Chloride 1,000 ml @ 84 mls/hr [id number] IV 03/04/17 12:00 03/06/17 20:33 (Levemir Inj) 25 units Q12HR SQ 03/06/17 21:00 03/06/17 20:32 (NovoLOG SUPPLEMENTAL SCALE) 1 Q4HR SQ 03/06/17 12:00 03/07/17 04:00 (D50w (Vial) Inj) 25 ml UNSCH PRN IV 03/06/17 09:30 (Glucagon Inj) 1 mg UNSCH PRN IM/SQ 03/06/17 09:30 (Tylenol 650 Mg/ 20 ml Liq) 650 mg Q4H PRN PO 03/06/17 12:00 03/06/17 12:40 Allergies Allergies Coded Allergies No Known Allergies (Unverified03/02/17) Review of Systems All other ROS: Unable to obtain Exam I&O / VS Vital Signs Date Time Temp Pulse Resp B/P (MAP) Pulse Ox O2 Delivery O2 Flow Rate FiO2 03/07/17 07:52 40 03/07/17 07:48 95 45 03/07/17 04:14 96 45 03/07/17 04:00 45 03/07/17 04:00 99.5 71 16 167/74 (105) 95 03/07/17 03:00 70 03/07/17 01:00 100 45 03/07/17 00:00 55 03/07/17 00:00 98.9 68 16 146/66 (92) 99 03/06/17 23:00 76 03/06/17 20:00 55 03/06/17 20:00 101.2 74 16 142/63 (89) 98 03/06/17 19:58 98 55 03/06/17 19:00 76 03/06/17 19:00 96 Mechanical Ventilator 55 03/06/17 16:45 98 55 03/06/17 16:39 101.3 86 16 154/70 (98) 98 03/06/17 16:00 100 03/06/17 15:56 99 100 03/06/17 15:00 86 03/06/17 12:00 99.5 95 15 157/71 (99) 95 03/06/17 12:00 55 03/06/17 11:34 95 55 03/06/17 11:00 95 03/06/17 08:57 40 Exam Comments intubated, on propofol/fentanyl gtt's, mild stupor state, easily alerts, not following, mild left gaze preference, ou 3-2mm, rt hemiplegia, localizes with left side, planter extensor on rt side Objective Micro and Labs Laboratory Tests Test 03/07/17 04:43 Blood Urea Nitrogen 52 Creatinine 2.06 Random Glucose 229 Calcium Level 8.6 Sodium Level 146 Potassium Level 3.9 Chloride Level 118 Carbon Dioxide Level 18.5 Anion Gap 10 Estimat Glomerular Filtration Rate 24 Date/Time Source Procedure Growth Status 03/04/17 16:05 Blood Peripheral Aerobic Blood Culture - Preliminary NO GROWTH IN 2 DAYS Resulted 03/04/17 16:05 Blood Peripheral Anaerobic Blood Culture - Preliminary NO GROWTH IN 2 DAYS Resulted 03/04/17 12:20 Nasal Aspirate Influenza Types A,B Antigen (OTF) - Final NEGATIVE FOR FLU A AND B ANTIGEN.... Complete 03/04/17 12:05 Urine Catheterized Urine Urine Culture - Final NO GROWTH IN 48 HOURS. Complete Problem Qualifiers (1) HTN (hypertension): Qualified Codes: I10 - Essential (primary) hypertension (2) Respiratory failure: Zoltan Rizo MD Mar 07, 2017 08:24
[2017-03-07] MEDS: JUVEN POWDER 1 PACK G-TUBE SCH ×2 (09:00→19:46)
[2017-03-07] MEDS: PANTOPRAZOLE SODIUM 40 MG VIAL IV SCH (09:11)
[2017-03-07] MEDS: DOCUSATE SODIUM 50 MG/SENNA 8.6 MG TAB PO SCH ×2 (09:11→19:46)
--- NOTE | 2017-03-07 09:11 | HHI.CCPN ---
Subjective Remarks/Hospital Course The patient is a 66-year-old female with unknown past medical history who presented to [facility] emergency department by EMS as a stroke alert. The patient was staying at the Hotel and was last seen normal at approximately 09:50 a.m. when she was walking to the patio and then she stumbled back at 11:11 a.m. according to staff disoriented. When EMS arrived she was noted to have right facial droop and right-sided weakness with aphasia. On arrival to the emergency room she was hypertensive with a blood pressure of 244/113. The patient was given Lopressor 5 mg IV x3 and placed on Cardene drip. CT scan of the brain showed possible embolus to the left MCA. She also had a CTA of the brain which showed nonocclusive thrombus involving the left MCA and CTA with brain perfusion showed flow-volume mismatch involving the entire left MCA distribution. She was seen by Dr. Wheeler from neurology service and the patient went to interventional radiology to undergo a catheterization, Angiography for thrombolysis and cough retraction. When seen she was on Cardene drip at 10 mg an hour with current blood pressure of 205/92. The patient is on 2 liters oxygen with saturation of 98% and a pulse of 72. 03/03: Early resting in bed. Verbalizes a few words. Right-sided remains flaccid with right-sided facial droop. Noted patient is insulin pump. Subjective 03/04: Afebrile. Intubated yesterday due to acute hypoxemic respiratory failure. Currently in acute kidney injury possibly secondary to dye/IV contrast. Nonoliguric currently with 1225 cc past 24 hours. Following commands unilaterally with left upper and lower extremity. Right upper and lower extremity flaccid. 03/05: No improvement in neuro status. CT head with some edema. 03/06: No neurological improvement. Does not focus, track, or respond. Her insulin pump is off, sugars elevated. 03/07: Levemir increased for elevated BS, converted to Glucerna 1.5. No neurological improvement. Objective Vital Signs Date Time Temp Pulse Resp B/P (MAP) Pulse Ox O2 Delivery O2 Flow Rate FiO2 03/07/17 07:52 40 03/07/17 07:48 95 03/07/17 04:00 99.5 71 16 167/74 (105) 03/06/17 19:00 Mechanical Ventilator 03/03/17 08:07 4.00 Intake and Output 03/07/17 03/07/17 03/08/17 08:00 16:00 00:00 Intake Total 1795 ml Output Total 1100 ml Balance 695 ml Result Diagram: 03/05/17 0409 03/07/17 0443 Other Results Microbiology Date/Time Source Procedure Growth Status 03/04/17 12:20 Nasal Aspirate Influenza Types A,B Antigen (OTF) - Final NEGATIVE FOR FLU A AND B ANTIGEN.... Complete 03/04/17 12:10 Sputum Endotracheal Gram Stain - Final Complete 03/04/17 12:10 Sputum Endotracheal Sputum Culture - Final Complete 03/04/17 12:05 Urine Catheterized Urine Urine Culture - Final NO GROWTH IN 48 HOURS. Complete Imaging Last Impressions Renal Ultrasound 03/03/17 0000 Signed Impressions: Service Date/Time: Friday, March 03, 2017 17:58 - CONCLUSION: 1. Echogenic kidneys characteristic of medical renal disease with trace perinephric fluid. No hydronephrosis. 2. Abnormal cystic and solid lesions in the pelvis. Further evaluation with CT abdomen and pelvis recommended. Jerrell Quintero MD Head CT 03/03/17 0000 Signed Impressions: Service Date/Time: Friday, March 03, 2017 14:18 - CONCLUSION: Very faint areas of high density within the left posterior parietal parenchyma measuring approximately 1 cm each suggestive of possible faint areas of parenchymal or subarachnoid hemorrhage as well as diffuse effacement of the posterior parietal sulci and underlying scattered areas of decreased attenuation consistent with acute infarction of the left posterior parietal lobe. Humberto Santillan MD Chest X-Ray 03/03/17 0000 Signed Impressions: Service Date/Time: Friday, March 03, 2017 16:41 - CONCLUSION: 1. ET tube in good position. 2. Bilateral airspace opacities, similar to prior. Gonzalo Madiosn MD Cerebral Arteriogram 03/02/17 1511 Signed Impressions: Service Date/Time: Thursday, March 02, 2017 12:44 - CONCLUSION: Successful embolectomy of the left MCA territory using a Solumbra technique as above. Micky Sauer MD Neck CTA 03/02/17 1121 Signed Impressions: Service Date/Time: Thursday, March 02, 2017 11:54 - CONCLUSION: 1. No evidence of hemodynamically significant lesion. There is 0-10%% stenosis bilaterally. Anthony Bourne MD Head/Neck CTA with Brain Perfusion 03/02/17 1121 Signed Impressions: Service Date/Time: Thursday, March 02, 2017 11:54 - CONCLUSION: 1. Flow volume mismatch involving the entire left middle cerebral artery distribution. The patient is to go to catheter angiography for thrombolysis Anthony Bourne MD Head CTA 03/02/17 1121 Signed Impressions: Service Date/Time: Thursday, March 02, 2017 11:54 - CONCLUSION: 1. Nonocclusive thrombus involving the left middle cerebral artery as above Anthony Bourne MD Objective Remarks GENERAL: 66 year old female, currently resting in bed in no acute distress orotracheally intubated SKIN: Warm and dry. No rash HEAD: Atraumatic. Normocephalic. EYES: Pupils equal and round about 3 mm bilaterally and reactive. No scleral icterus. No injection or drainage. ENT: No nasal bleeding or discharge. Mucous membranes pink and moist. Oropharynx without erythema or exudates NECK: Trachea midline. No JVD. CARDIOVASCULAR: Regular rate and rhythm. S1, S2 no S4 without murmur RESPIRATORY: No accessory muscle use. Clear to auscultation. Breath sounds equal bilaterally. GASTROINTESTINAL: Abdomen soft, non-tender, nondistended. Hepatic and splenic margins not palpable. MUSCULOSKELETAL: Extremities without significant peripheral edema. No obvious deformities. NEUROLOGICAL: Opens eyes, no focus or track. Right facial droop. Right-side arm remains flaccid. Right leg withdraws. Spontaneously moving left upper and lower extremity. Tolerated CPAP briefly only. 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 Repeat head CT 03/03 revealed a left parietal CVA with petechial hemorrhage surrounding Neurology/Dr. Wheeler following Will check EEG today 03/04 CV: Hypertension Hypertriglyceridemia of 277 Currently on as needed labetalol/hydralazine and Nitropaste to maintain systolic blood pressure less than 160/: Blood pressure goal recommendation and discussion per neurology 03/03 Home medications atenolol 50 mill grams daily and valsartan/HCTZ 320/25 one tablet daily 2-D echocardiogram revealed EF 55%. Mild LVH Initiate lipid-lowering agent once clinically appropriate Resp: Acute hypoxemic respiratory failure [facility] 16/550/07/02/39 Ventilator bundle Albuterol/ipratropium aerosols every 6 hours and albuterol aerosols every 2 hours. Dyspnea Spontaneous breathing trials daily GI: Gastroesophageal reflux disease Initiate tube feeding with Nepro goal 40 cc an hour Pantoprazole for GI prophylaxis. On omeprazole at home 20 mg daily Leslie-Colace one tablet twice a day for bowel regimen Glucerna 1.5 TFs : d/c Zapien catheter Endo: Diabetes mellitus Discontinue insulin pump. Restart when clinically indicated. Started on detemir 10 units subcutaneous twice a day Sliding-scale insulin with Accu-Cheks to maintain euglycemia/low regimen every 4 hours with Novolog Renal: Acute kidney injury question underlying chronic kidney disease Currently normal saline cc an hour Did receive IV dye for CT angiogram Check urine electrolytes and eosinophils. Renal ultrasound 03/03 revealed medical renal disease. Noted's cystic versus solid mass and pelvis. Recommended CT pelvis. Heme: Leukocytosis Monitor CBC daily. Follow trends ID: Monitor for infection MSK: Vitamin D deficiency Holding calcitriol 0.25 mg daily and ergocalciferol 2000 units daily. Resume when clinically indicated FEN: Replace electrolytes as clinically indicated Access - Utilize peripheral IV. Central line if indicated Prophylaxis - GI - pantoprazole - DVT - SCD/likely protocol prophylaxis Overall impression: Looks like a completed and large, dominant hemisphere CVA. Glucose intolerance. No improvement. Ever Leong MD Mar 07, 2017 09:11
[2017-03-07] MEDS: INSULIN DETEMIR 100 UNITS/ML VIAL SQ SCH ×2 (09:15→19:47)
[2017-03-07] MEDS: CHLORHEXIDINE 0.12% (ORAL KIT) 15 ML CUP MT SCH ×2 (09:17→19:50)
[2017-03-07] MEDS: ACETAMINOPHEN 1000 MG/100 ML VIAL IV PRN (10:27)
[2017-03-07] MEDS: fentaNYL DRIP 250 ML IV PRN (14:21)
--- NOTE | 2017-03-07 15:14 | MG ---
cc: LAZ HOLDER MD Lab No: [id number] Date: 03/06/2017 Age: Sex: F Race: DATE OF 1950 HISTORY: 66-year-old, left MCA stroke, confusion. PROCEDURE 2-4 Hz activity, 260 microvolts present in a generalized fashion. A couple of rare frontal sharp transients. Minimal EPOCH 91. Limited driving with photic stimulation, mild EEG variability reactivity noted. Single-lead EKG showing sinus rhythm. INTERPRETATION Moderate encephalopathy with occasional right frontal sharp transients. Clinical correlation. Laz Holder MD MG/DT /12:48 PM /2:53 PM
[2017-03-07] MEDS: levETIRAcetam INJ 500 MG in SODIUM CHLORIDE 0.9% INJ 100 ML IV SCH (15:39)
[2017-03-07] MEDS: HEPARIN SODIUM - SQ 10,000 UNITS/ML VIAL SQ SCH (19:46)
[2017-03-07] MEDS: SODIUM CHLOR 0.9% 1000 ML INJ 1,000 ML IV SCH (19:50)
[2017-03-08] VITALS (18 sets, daily range): BP systolic 133–161; BP diastolic 62–71; PULSE 73–84; RESP 14–20; TEMP 99.1–101.3; O2SAT 92–98
[2017-03-08] MEDS: PROPOFOL 1000 MG/100 ML INJ 100 ML IV PRN ×5 (00:16→21:49)
[2017-03-08] MEDS: CHLORHEXIDINE GLUCONATE 2 % 1 PACK (2 CLOTHS) TOP SCH (01:34)
[2017-03-08] MEDS: levETIRAcetam INJ 500 MG in SODIUM CHLORIDE 0.9% INJ 100 ML IV SCH ×2 (02:08→14:35)
[2017-03-08] MEDS: hydrALAZINE HCL 20 MG/ML VIAL IV PUSH PRN (02:08)
[2017-03-08] MEDS: INSULIN ASPART SUPPLEMENTAL SCALE SQ SCH ×7 (04:00→23:49)
[2017-03-08] MEDS: LABETALOL HCL 100 MG/20 ML VIAL IV PUSH PRN ×3 (04:11→22:19)
[2017-03-08 07:00] LABS: POTASSIUM 4.2 MEQ/L (3.5-5.1)
[2017-03-08] MEDS: RESP: ALBUTEROL 2.5 MG/3 ML NEB (PRN) NEB (07:40)
[2017-03-08] MEDS: PANTOPRAZOLE SODIUM 40 MG VIAL IV SCH (08:12)
[2017-03-08] MEDS: HEPARIN SODIUM - SQ 10,000 UNITS/ML VIAL SQ SCH ×2 (08:12→20:46)
[2017-03-08] MEDS: ASPIRIN 300 MG SUPP RECTAL SCH (08:13)
[2017-03-08] MEDS: INSULIN DETEMIR 100 UNITS/ML VIAL SQ SCH ×2 (08:17→20:47)
[2017-03-08] MEDS: fentaNYL DRIP 250 ML IV PRN (08:18)
[2017-03-08] MEDS: CHLORHEXIDINE 0.12% (ORAL KIT) 15 ML CUP MT SCH ×2 (08:18→20:48)
[2017-03-08] MEDS: JUVEN POWDER 1 PACK G-TUBE SCH ×2 (08:19→20:46)
[2017-03-08] MEDS: DOCUSATE SODIUM 50 MG/SENNA 8.6 MG TAB PO SCH ×2 (08:21→20:45)
--- NOTE | 2017-03-08 09:33 | HHI.CCPN ---
Subjective Remarks/Hospital Course The patient is a 66-year-old female with unknown past medical history who presented to [facility] emergency department by EMS as a stroke alert. The patient was staying at the Hotel and was last seen normal at approximately 09:50 a.m. when she was walking to the patio and then she stumbled back at 11:11 a.m. according to staff disoriented. When EMS arrived she was noted to have right facial droop and right-sided weakness with aphasia. On arrival to the emergency room she was hypertensive with a blood pressure of 244/113. The patient was given Lopressor 5 mg IV x3 and placed on Cardene drip. CT scan of the brain showed possible embolus to the left MCA. She also had a CTA of the brain which showed nonocclusive thrombus involving the left MCA and CTA with brain perfusion showed flow-volume mismatch involving the entire left MCA distribution. She was seen by Dr. Wheeler from neurology service and the patient went to interventional radiology to undergo a catheterization, Angiography for thrombolysis and cough retraction. When seen she was on Cardene drip at 10 mg an hour with current blood pressure of 205/92. The patient is on 2 liters oxygen with saturation of 98% and a pulse of 72. 03/03: Early resting in bed. Verbalizes a few words. Right-sided remains flaccid with right-sided facial droop. Noted patient is insulin pump. Subjective 03/04: Afebrile. Intubated yesterday due to acute hypoxemic respiratory failure. Currently in acute kidney injury possibly secondary to dye/IV contrast. Nonoliguric currently with 1225 cc past 24 hours. Following commands unilaterally with left upper and lower extremity. Right upper and lower extremity flaccid. 03/05: No improvement in neuro status. CT head with some edema. 03/06: No neurological improvement. Does not focus, track, or respond. Her insulin pump is off, sugars elevated. 03/07: Levemir increased for elevated BS, converted to Glucerna 1.5. No neurological improvement. 03/08: Glucose intolerance persists. No improvement, remains unresponsive. Objective Vital Signs Date Time Temp Pulse Resp B/P (MAP) Pulse Ox O2 Delivery O2 Flow Rate FiO2 03/08/17 07:28 95 40 03/08/17 04:00 100.1 84 15 161/71 (101) 03/07/17 20:00 Mechanical Ventilator Intake and Output 03/08/17 03/08/17 03/09/17 08:00 16:00 00:00 Intake Total 1775 ml Output Total 775 ml Balance 1000 ml Result Diagram: 03/05/17 0409 03/08/17 0433 Imaging Last Impressions Renal Ultrasound 03/03/17 0000 Signed Impressions: Service Date/Time: Friday, March 03, 2017 17:58 - CONCLUSION: 1. Echogenic kidneys characteristic of medical renal disease with trace perinephric fluid. No hydronephrosis. 2. Abnormal cystic and solid lesions in the pelvis. Further evaluation with CT abdomen and pelvis recommended. Jerrell Quintero MD Head CT 03/03/17 0000 Signed Impressions: Service Date/Time: Friday, March 03, 2017 14:18 - CONCLUSION: Very faint areas of high density within the left posterior parietal parenchyma measuring approximately 1 cm each suggestive of possible faint areas of parenchymal or subarachnoid hemorrhage as well as diffuse effacement of the posterior parietal sulci and underlying scattered areas of decreased attenuation consistent with acute infarction of the left posterior parietal lobe. Humberto Santillan MD Chest X-Ray 03/03/17 0000 Signed Impressions: Service Date/Time: Friday, March 03, 2017 16:41 - CONCLUSION: 1. ET tube in good position. 2. Bilateral airspace opacities, similar to prior. Gonzalo Madison MD Cerebral Arteriogram 03/02/17 1511 Signed Impressions: Service Date/Time: Thursday, March 02, 2017 12:44 - CONCLUSION: Successful embolectomy of the left MCA territory using a Solumbra technique as above. Micky Sauer MD Neck CTA 03/02/17 1121 Signed Impressions: Service Date/Time: Thursday, March 02, 2017 11:54 - CONCLUSION: 1. No evidence of hemodynamically significant lesion. There is 0-10%% stenosis bilaterally. Anthony Bourne MD Head/Neck CTA with Brain Perfusion 03/02/17 1121 Signed Impressions: Service Date/Time: Thursday, March 02, 2017 11:54 - CONCLUSION: 1. Flow volume mismatch involving the entire left middle cerebral artery distribution. The patient is to go to catheter angiography for thrombolysis Anthony Bourne MD Head CTA 03/02/17 1121 Signed Impressions: Service Date/Time: Thursday, March 02, 2017 11:54 - CONCLUSION: 1. Nonocclusive thrombus involving the left middle cerebral artery as above Anthony Bourne MD Objective Remarks GENERAL: 66 year old female, currently resting in bed in no acute distress orotracheally intubated SKIN: Warm and dry. No rash HEAD: Atraumatic. Normocephalic. EYES: Pupils equal and round about 3 mm bilaterally and reactive. No scleral icterus. No injection or drainage. ENT: No nasal bleeding or discharge. Mucous membranes pink and moist. Oropharynx without erythema or exudates NECK: Trachea midline. No JVD. CARDIOVASCULAR: Regular rate and rhythm. S1, S2 no S4 without murmur RESPIRATORY: No accessory muscle use. Clear to auscultation. Breath sounds equal bilaterally. GASTROINTESTINAL: Abdomen soft, non-tender, nondistended. Hepatic and splenic margins not palpable. MUSCULOSKELETAL: Extremities without significant peripheral edema. No obvious deformities. NEUROLOGICAL: Opens eyes, no focus or track. Right facial droop. Right-side arm remains flaccid. Right leg withdraws. Spontaneously moving left upper and lower extremity. Tolerated CPAP briefly only. 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 Repeat head CT 03/03 revealed a left parietal CVA with petechial hemorrhage surrounding Neurology/Dr. Wheeler following Will check EEG today 03/04 CV: Hypertension Hypertriglyceridemia of 277 Currently on as needed labetalol/hydralazine and Nitropaste to maintain systolic blood pressure less than 160/: Blood pressure goal recommendation and discussion per neurology 03/03 Home medications atenolol 50 mill grams daily and valsartan/HCTZ 320/25 one tablet daily 2-D echocardiogram revealed EF 55%. Mild LVH Initiate lipid-lowering agent once clinically appropriate Resp: Acute hypoxemic respiratory failure [facility] [address]50/07/02/39 Ventilator bundle Albuterol/ipratropium aerosols every 6 hours and albuterol aerosols every 2 hours. Dyspnea Spontaneous breathing trials daily GI: Gastroesophageal reflux disease Initiate tube feeding with Nepro goal 40 cc an hour Pantoprazole for GI prophylaxis. On omeprazole at home 20 mg daily Leslie-Colace one tablet twice a day for bowel regimen Glucerna 1.5 TFs : d/c Zapien catheter Endo: Diabetes mellitus Discontinue insulin pump. Restart when clinically indicated. Started on detemir 10 units subcutaneous twice a day Sliding-scale insulin with Accu-Cheks to maintain euglycemia/low regimen every 4 hours with Novolog Renal: Acute kidney injury question underlying chronic kidney disease Currently normal saline cc an hour Did receive IV dye for CT angiogram Check urine electrolytes and eosinophils. Renal ultrasound 03/03 revealed medical renal disease. Noted's cystic versus solid mass and pelvis. Recommended CT pelvis. Heme: Leukocytosis Monitor CBC daily. Follow trends ID: Monitor for infection MSK: Vitamin D deficiency Holding calcitriol 0.25 mg daily and ergocalciferol 2000 units daily. Resume when clinically indicated FEN: Replace electrolytes as clinically indicated Access - Utilize peripheral IV. Central line if indicated Prophylaxis - GI - pantoprazole - DVT - SCD/likely protocol prophylaxis Overall impression: Looks like a completed and large, dominant hemisphere CVA. Glucose intolerance. No improvement. Consult Palliative Care. Ever Leong MD Mar 08, 2017 09:33
--- NOTE | 2017-03-08 14:48 | HHI.PR ---
Review/Management Diagnosis Acute ischemic stroke left MCA/M2 s/p clot extraction and iv tPA on 03/02/2017 Hypoxemic respiratory failure Plan Neuro-checks Q1h Aspirin 81mg daily Continue supportive medical treatment Telemetry Cardiac ECHO DVT prophylaxis GI Prophylaxis Diagnosis/Plan: (1) Received intravenous tissue plasminogen activator (t-PA) inemergency department ICD Codes: Z92.82 - Status post administration of tPA (rtPA) in a different facility within the last 24 hours prior to admission to current facility Status: Acute Plan: s/p iv tpa, s/p left mca embolectomy mild to moderate stroke recs repeat ct brain non-contrast; left ue extension? apparently palliative care being considered d/w rn Dr. Wheeler to follow in am (2) Respiratory failure ICD Codes: J96.90 - Respiratory failure, unspecified, unspecified whether with hypoxia or hypercapnia Status: Acute (3) Stroke due to embolism of left middle cerebral artery ICD Codes: I63.412 - Cerebral infarction due to embolism of left middle cerebral artery Status: Acute (4) HTN (hypertension) ICD Codes: I10 - Essential (primary) hypertension Status: Chronic Subjective Subjective Comments No acute events reported Active Medications Current Medications Medications (Trade) Dose Ordered Sig/Venecia Route Start Time Stop Time Status Last Admin (Lopressor Inj) 5 mg Q5M PRN IV PUSH 03/02/17 11:30 03/03/17 14:02 (Protonix Inj) 40 mg DAILY IV 03/03/17 09:00 03/08/17 08:12 Miscellaneous Information 1 Q361D XX 03/02/17 12:30 (Chlorhexidine 2% Cloth) Taper DAILY@04 TOP 03/03/17 04:00 02/27/18 03:59 03/06/17 04:00 (Chlorhexidine 2% Cloth) 3 pack UNSCH PRN TOP 03/02/17 12:30 (Leslie-Colace) 1 tab BID PO 03/02/17 21:00 03/08/17 08:21 (Milk Of Magnesia Liq) 30 ml Q12H PRN PO 03/02/17 12:30 (Senokot) 17.2 mg Q12H PRN PO 03/02/17 12:30 (Dulcolax Supp) 10 mg DAILY PRN RECTAL 03/02/17 12:30 (Lactulose Liq) 30 ml DAILY PRN PO 03/02/17 12:30 (Ofirmev 1000 Mg/ 100 ml Inj) 1,000 mg Q6H PRN IV 03/02/17 20:45 03/07/17 10:27 (Albuterol Neb) 2.5 mg Q2HR NEB PRN NEB 03/03/17 13:30 03/08/17 07:40 (Apresoline Inj) 10 mg Q1HR PRN IV PUSH 03/03/17 13:45 03/08/17 02:08 (Trandate Inj) 10 mg Q1HR PRN IV PUSH 03/03/17 13:45 03/08/17 14:35 (Nitroglycerin 2% Oint) 2 inch Q6HR PRN TOPICAL 03/03/17 13:45 (Peridex 0.12% Liq) 15 ml BID@08,20 MT 03/03/17 20:00 03/08/17 08:18 Propofol 100 ml @ 2.937 mls/ hr TITRATE PRN IV 03/03/17 16:30 03/08/17 12:54 Fentanyl Citrate 250 ml @ 5 mls/hr TITRATE PRN IV 03/03/17 16:30 03/08/17 08:18 Nitroglycerin/ Dextrose 250 ml @ 1.5 mls/hr TITRATE PRN IV 03/03/17 17:00 (Edgardo Powder) 1 pack BID G-TUBE 03/04/17 21:00 03/08/17 08:19 Sodium Chloride 1,000 ml @ 84 mls/hr [id number] IV 03/04/17 12:00 03/07/17 19:50 (NovoLOG SUPPLEMENTAL SCALE) 1 Q4HR SQ 03/06/17 12:00 03/08/17 13:05 (D50w (Vial) Inj) 25 ml UNSCH PRN IV 03/06/17 09:30 (Glucagon Inj) 1 mg UNSCH PRN IM/SQ 03/06/17 09:30 (Tylenol 650 Mg/ 20 ml Liq) 650 mg Q4H PRN PO 03/06/17 12:00 03/06/17 12:40 (Aspirin Supp) 150 mg DAILY RECTAL 03/08/17 09:00 03/08/17 08:13 (Heparin Inj) 5,000 units BID SQ 03/07/17 21:00 03/08/17 08:12 Levetriacetam 500 mg/Sodium Chloride 105 ml @ 420 mls/hr Q12H IV 03/07/17 15:00 03/08/17 14:35 (Levemir Inj) 35 units Q12HR SQ 03/08/17 21:00 Allergies Allergies Coded Allergies No Known Allergies (Unverified03/02/17) Review of Systems All other ROS: ROS reviewed as documented in chart, Unable to obtain Exam I&O / VS Vital Signs Date Time Temp Pulse Resp B/P (MAP) Pulse Ox O2 Delivery O2 Flow Rate FiO2 03/08/17 11:39 94 40 03/08/17 10:00 79 03/08/17 08:00 79 03/08/17 08:00 40 03/08/17 08:00 99.7 79 20 158/70 (99) 98 03/08/17 08:00 98 Mechanical Ventilator 40 03/08/17 07:28 95 40 03/08/17 04:00 100.1 84 15 161/71 (101) 93 03/08/17 04:00 45 03/08/17 03:52 94 40 03/08/17 03:00 78 03/08/17 00:00 99.1 73 14 133/62 (85) 96 03/08/17 00:00 45 03/07/17 23:52 97 40 03/07/17 23:00 70 03/07/17 20:00 94 Mechanical Ventilator 40 03/07/17 20:00 100.1 76 14 157/71 (99) 94 03/07/17 20:00 45 03/07/17 19:55 95 45 03/07/17 19:30 76 03/07/17 18:00 76 03/07/17 16:27 97 45 03/07/17 16:00 45 03/07/17 16:00 100.1 74 14 146/67 (93) 98 03/07/17 16:00 74 03/07/17 15:00 71 Exam Comments intubated, on propofol/fentanyl gtt's, deep stupor state, not following, mild left gaze preference, ou 3-2mm, rt hemiplegia, extending left side ue, planter extensor on rt side Objective Micro and Labs Laboratory Tests Test 03/08/17 04:33 Blood Urea Nitrogen 63 Creatinine 1.93 Random Glucose 225 Calcium Level 9.2 Sodium Level 146 Potassium Level 4.2 Chloride Level 117 Carbon Dioxide Level 20.0 Anion Gap 9 Estimat Glomerular Filtration Rate 26 Date/Time Source Procedure Growth Status 03/04/17 16:05 Blood Peripheral Aerobic Blood Culture - Preliminary NO GROWTH IN 4 DAYS Resulted 03/04/17 16:05 Blood Peripheral Anaerobic Blood Culture - Preliminary NO GROWTH IN 4 DAYS Resulted 03/04/17 12:20 Nasal Aspirate Influenza Types A,B Antigen (OTF) - Final NEGATIVE FOR FLU A AND B ANTIGEN.... Complete 03/04/17 12:05 Urine Catheterized Urine Urine Culture - Final NO GROWTH IN 48 HOURS. Complete Problem Qualifiers (1) Respiratory failure: (2) HTN (hypertension): Qualified Codes: I10 - Essential (primary) hypertension Zoltan Rizo MD Mar 08, 2017 14:48
--- NOTE | 2017-03-08 18:14 | RADRPT ---
EXAM DATE/TIME: 03/08/2017 17:49 [place] COMPARISON: CT BRAIN W/O CONTRAST, March 06, 2017, 15:55. INDICATIONS : Evaluate stroke. RADIATION DOSE: 56.35 CTDIvol (mGy) MEDICAL HISTORY : Hypertension. Diabetes mellitus type 1. Cerebrovascular disease. SURGICAL HISTORY : None. ENCOUNTER: Subsequent ACUITY: 3 days PAIN SCALE: 0/10 LOCATION: cranial TECHNIQUE: Multiple contiguous axial images were obtained of the head. Using automated exposure control and adj ustment of the mA and/or kV according to patient size, radiation dose was kept as low as reasonably a chievable to obtain optimal diagnostic quality images. DICOM format image data is available electro nically for review and comparison. FINDINGS: Subacute left middle cerebral artery distribution infarct continues to evolve. No interim bleed. No m ass, mass effect or midline shift. No evidence of a new ischemic event. CONCLUSION: No significant change. Left middle cerebral artery distribution subacute infarct again noted. No mass effect, midline shift or interim bleed. Vinay Castellon MD on March 08, 2017 at 18:10 Board Certified Radiologist. This report was verified electronically.
[2017-03-08] MEDS: SODIUM CHLOR 0.9% 1000 ML INJ 1,000 ML IV SCH ×2 (20:49→20:54)
[2017-03-09] VITALS (18 sets, daily range): BP systolic 138–165; BP diastolic 63–74; PULSE 70–84; RESP 14–20; TEMP 99.4–100.4; O2SAT 93–97
[2017-03-09] MEDS: hydrALAZINE HCL 20 MG/ML VIAL IV PUSH PRN (00:34)
[2017-03-09] MEDS: PROPOFOL 1000 MG/100 ML INJ 100 ML IV PRN ×5 (00:50→20:50)
[2017-03-09] MEDS: fentaNYL DRIP 250 ML IV PRN ×2 (00:51→20:08)
[2017-03-09] MEDS: CHLORHEXIDINE GLUCONATE 2 % 1 PACK (2 CLOTHS) TOP SCH (02:21)
[2017-03-09] MEDS: levETIRAcetam INJ 500 MG in SODIUM CHLORIDE 0.9% INJ 100 ML IV SCH ×2 (02:36→16:51)
[2017-03-09] MEDS: INSULIN ASPART SUPPLEMENTAL SCALE SQ SCH ×5 (04:00→20:55)
[2017-03-09 08:12] LABS: POTASSIUM 4.5 MEQ/L (3.5-5.1)
--- NOTE | 2017-03-09 09:14 | HHI.CCPN ---
Subjective Remarks/Hospital Course The patient is a 66-year-old female with unknown past medical history who presented to [facility] emergency department by EMS as a stroke alert. The patient was staying at the Hotel and was last seen normal at approximately 09:50 a.m. when she was walking to the patio and then she stumbled back at 11:11 a.m. according to staff disoriented. When EMS arrived she was noted to have right facial droop and right-sided weakness with aphasia. On arrival to the emergency room she was hypertensive with a blood pressure of 244/113. The patient was given Lopressor 5 mg IV x3 and placed on Cardene drip. CT scan of the brain showed possible embolus to the left MCA. She also had a CTA of the brain which showed nonocclusive thrombus involving the left MCA and CTA with brain perfusion showed flow-volume mismatch involving the entire left MCA distribution. She was seen by Dr. Wheeler from neurology service and the patient went to interventional radiology to undergo a catheterization, Angiography for thrombolysis and cough retraction. When seen she was on Cardene drip at 10 mg an hour with current blood pressure of 205/92. The patient is on 2 liters oxygen with saturation of 98% and a pulse of 72. 03/03: Early resting in bed. Verbalizes a few words. Right-sided remains flaccid with right-sided facial droop. Noted patient is insulin pump. Subjective 03/04: Afebrile. Intubated yesterday due to acute hypoxemic respiratory failure. Currently in acute kidney injury possibly secondary to dye/IV contrast. Nonoliguric currently with 1225 cc past 24 hours. Following commands unilaterally with left upper and lower extremity. Right upper and lower extremity flaccid. 03/05: No improvement in neuro status. CT head with some edema. 03/06: No neurological improvement. Does not focus, track, or respond. Her insulin pump is off, sugars elevated. 03/07: Levemir increased for elevated BS, converted to Glucerna 1.5. No neurological improvement. 03/08: Glucose intolerance persists. No improvement, remains unresponsive. 03/09: Does not track or focus. She does get agitated and requires sedation to synchronize with vent. Major decision is if family wants to proceed with trach and PEG. Objective Vital Signs Date Time Temp Pulse Resp B/P (MAP) Pulse Ox O2 Delivery O2 Flow Rate FiO2 03/09/17 08:30 95 45 03/09/17 04:00 100.2 83 15 152/67 (95) 03/08/17 20:00 Mechanical Ventilator Intake and Output 03/09/17 03/09/17 03/10/17 08:00 16:00 00:00 Intake Total 1657 ml Output Total 1350 ml Balance 307 ml Result Diagram: 03/05/17 0409 03/09/17 0730 Imaging Last Impressions Renal Ultrasound 03/03/17 0000 Signed Impressions: Service Date/Time: Friday, March 03, 2017 17:58 - CONCLUSION: 1. Echogenic kidneys characteristic of medical renal disease with trace perinephric fluid. No hydronephrosis. 2. Abnormal cystic and solid lesions in the pelvis. Further evaluation with CT abdomen and pelvis recommended. Jerrell Quintero MD Head CT 03/03/17 0000 Signed Impressions: Service Date/Time: Friday, March 03, 2017 14:18 - CONCLUSION: Very faint areas of high density within the left posterior parietal parenchyma measuring approximately 1 cm each suggestive of possible faint areas of parenchymal or subarachnoid hemorrhage as well as diffuse effacement of the posterior parietal sulci and underlying scattered areas of decreased attenuation consistent with acute infarction of the left posterior parietal lobe. Humberto Santillan MD Chest X-Ray 03/03/17 0000 Signed Impressions: Service Date/Time: Friday, March 03, 2017 16:41 - CONCLUSION: 1. ET tube in good position. 2. Bilateral airspace opacities, similar to prior. Gonzalo Madison MD Cerebral Arteriogram 03/02/17 1511 Signed Impressions: Service Date/Time: Thursday, March 02, 2017 12:44 - CONCLUSION: Successful embolectomy of the left MCA territory using a Solumbra technique as above. Micky Sauer MD Neck CTA 03/02/17 1121 Signed Impressions: Service Date/Time: Thursday, March 02, 2017 11:54 - CONCLUSION: 1. No evidence of hemodynamically significant lesion. There is 0-10%% stenosis bilaterally. Anthony Bourne MD Head/Neck CTA with Brain Perfusion 03/02/17 1121 Signed Impressions: Service Date/Time: Thursday, March 02, 2017 11:54 - CONCLUSION: 1. Flow volume mismatch involving the entire left middle cerebral artery distribution. The patient is to go to catheter angiography for thrombolysis Anthony Bourne MD Head CTA 03/02/17 1121 Signed Impressions: Service Date/Time: Thursday, March 02, 2017 11:54 - CONCLUSION: 1. Nonocclusive thrombus involving the left middle cerebral artery as above Anthony Bourne MD Objective Remarks GENERAL: 66 year old female, currently resting in bed in no acute distress orotracheally intubated SKIN: Warm and dry. No rash HEAD: Atraumatic. Normocephalic. EYES: Pupils equal and round about 3 mm bilaterally and reactive. No scleral icterus. No injection or drainage. ENT: No nasal bleeding or discharge. Mucous membranes pink and moist. Oropharynx without erythema or exudates NECK: Trachea midline. No JVD. CARDIOVASCULAR: Regular rate and rhythm. S1, S2 no S4 without murmur RESPIRATORY: No accessory muscle use. Clear to auscultation. Breath sounds equal bilaterally. GASTROINTESTINAL: Abdomen soft, non-tender, nondistended. Hepatic and splenic margins not palpable. MUSCULOSKELETAL: Extremities without significant peripheral edema. No obvious deformities. NEUROLOGICAL: Opens eyes, no focus or track. Right facial droop. Right-side arm remains flaccid. Right leg withdraws to noxious stimulation. Spontaneously moving left upper and lower extremity. Tolerates CPAP only briefly. 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 Repeat head CT 03/03 revealed a left parietal CVA with petechial hemorrhage surrounding Neurology/Dr. Wheeler following Will check EEG today 03/04 CV: Hypertension Hypertriglyceridemia of 277 Currently on as needed labetalol/hydralazine and Nitropaste to maintain systolic blood pressure less than 160/: Blood pressure goal recommendation and discussion per neurology 03/03 Home medications atenolol 50 mill grams daily and valsartan/HCTZ 320/25 one tablet daily 2-D echocardiogram revealed EF 55%. Mild LVH Initiate lipid-lowering agent once clinically appropriate Resp: Acute hypoxemic respiratory failure [facility] 16/550/07/02/39 Ventilator bundle Albuterol/ipratropium aerosols every 6 hours and albuterol aerosols every 2 hours. Dyspnea Spontaneous breathing trials daily GI: Gastroesophageal reflux disease Initiate tube feeding with Nepro goal 40 cc an hour Pantoprazole for GI prophylaxis. On omeprazole at home 20 mg daily Leslie-Colace one tablet twice a day for bowel regimen Glucerna 1.5 TFs Increase levemir to 35 bid : d/c Zapien catheter Endo: Diabetes mellitus Discontinue insulin pump. Restart when clinically indicated. Started on detemir 10 units subcutaneous twice a day Sliding-scale insulin with Accu-Cheks to maintain euglycemia/low regimen every 4 hours with Novolog Renal: Acute kidney injury question underlying chronic kidney disease Currently normal saline cc an hour Did receive IV dye for CT angiogram Check urine electrolytes and eosinophils. Renal ultrasound 03/03 revealed medical renal disease. Noted's cystic versus solid mass and pelvis. Recommended CT pelvis. Heme: Leukocytosis Monitor CBC daily. Follow trends ID: Monitor for infection MSK: Vitamin D deficiency Holding calcitriol 0.25 mg daily and ergocalciferol 2000 units daily. Resume when clinically indicated FEN: Replace electrolytes as clinically indicated Access - Utilize peripheral IV. Central line if indicated Prophylaxis - GI - pantoprazole - DVT - SCD/likely protocol prophylaxis Overall impression: Looks like a completed, large, dominant hemisphere CVA. Glucose intolerance persists. No improvement. Consult Palliative Care. Her father should arrive shortly. A neice is also verbal about her wishes. Ever Leong MD Mar 09, 2017 09:14
[2017-03-09] MEDS: CHLORHEXIDINE 0.12% (ORAL KIT) 15 ML CUP MT SCH ×2 (09:37→20:13)
[2017-03-09] MEDS: INSULIN DETEMIR 100 UNITS/ML VIAL SQ SCH ×2 (09:44→20:14)
[2017-03-09] MEDS: HEPARIN SODIUM - SQ 10,000 UNITS/ML VIAL SQ SCH ×2 (09:49→20:09)
[2017-03-09] MEDS: PANTOPRAZOLE SODIUM 40 MG VIAL IV SCH (09:49)
[2017-03-09] MEDS: ASPIRIN 300 MG SUPP RECTAL SCH (09:49)
[2017-03-09] MEDS: JUVEN POWDER 1 PACK G-TUBE SCH ×2 (09:49→20:57)
--- NOTE | 2017-03-09 11:24 | PD.CONS ---
Consult Service Palliative Care Consult Requested By Dr. Leong . Primary Care Physician Reason for Consultation a. To assist with evaluation and management of symptoms including:dyspnea, encephalopathy, malnutrition b. To assist medical decision maker(s) with: better understanding of current medical conditions; weighing benefits/burdens of medical treatment options; making medical treatment decisions. . (RomanaAria) HPI History of Present Illness The patient is a 66 year old female who was brought to the ED by EMS on 03/02/17 for signs and symptoms of a stroke. The patient was visiting from out of the area, she was witnessed by hotel staff walking onto the patio at approximately 10am normally, at about 11am she came back into the hotel lobby disoriented and having difficulty walking. EMS documented witnessing a right facial droop, right sided weakness, and aphasia. Initial workup in ED included CTA head: Nonocclusive thrombus involving the left middle cerebral artery. On arrival significant laboratory data included: WBC:16.3, BUN:36, creatinine:1.99, GFR:25 , Glucose:188, and albumin:3.0. The patient was evaluated by neurology shortly after arrival to the facility. The patient was hypertensive on arrival with SBP ranging in the 200s, she received three doses of IV metoprolol and was placed on a Nicardipine drip. Due to persistent hypertension despite treatment the patient was not yet a candidate for tPA, she was then brought to interventional radiology for an embolectomy and subsequently received IV tPA once her BP was stabilized. The patient was then transferred to the ICU for further medical management, post operatively she was still disoriented and dysphasic, she remained on a Nicardipine drip for hypertension management. On 03/03/17 the patient's blood pressure was elevated despite treatment, she began having difficulty breathing, experienced oxygen desaturation and was intubated due to respiratory failure. Imaging on 03/03/17 included: follow up head CT revealed left parietal CVA with subarachnoid hemorrhage and renal ultrasound revealed medical renal disease. On 03/04/27 EEG showed moderate encephalopathy, the patient remained intubated and was unable to tolerate CPAP, she was still able to follow some commands but was unable to track, she was able to move her extremities on her left side, her right side remained flaccid. On 03/04/17 Abdomen /Pelvis CT revealed enlarged uterus with multiple masses and large left lower quadrant mass that could be ovarian mass versus exophytic fibroid. Over the next several days the patient was unable to tolerate SBTs and had no neurological improvement, on 03/08/17 palliative care was consulted to discuss goals of care with the patient's family as well as provide support and guidance throughout this hospitalization. Patient examined in room today, sedation was lightened for neurological exam per Dr. Leong's recommendation to assist with assessment, patient did not respond to sternal rub, withdraws to noxious stimuli in LLE only, does not open eyes or track. Patient is intubated and mechanically ventilated, BP control has improved, renal function continues to worsen, leukocytosis is slowing improving. Discussed patient with Dr. Leong and bedside RN. Dual visit with ETTA Malloy. . Function/Cognitive Trajectory Prior to this hospitalization the patient was completely independent, she was still working and traveled alone often. She has a history of type 1 diabetes requiring an insulin pump and hypertension. . (Aria Avendano) Review of Systems ROS Limitations: Clinical Condition, Intubated (Patient intubated and sedated) (Aria Avendano) Past Family Social History Coded Allergies: No Known Allergies (Unverified , 03/02/17) Past Medical History Type 1 Diabetes diagnosed in her teenage years. Hypertension. . Past Surgical History None known. . Reported Medications Reported Meds & Active Scripts Active Reported Omeprazole 40 Mg Cap 40 Mg PO DAILY Vitamin D2 (Ergocalciferol) 2,000 Unit Tab 2,000 Units PO DAILY Valsartan-Hydrochlorothiazide 320-25 Mg Tab 1 Tab PO DAILY Atenolol 50 Mg Tab 50 Mg PO DAILY Calcitriol 0.25 Mcg Cap 0.25 Mcg PO DAILY Current Medications Medications (Trade) Dose Ordered Sig/Venecia Route Start Time Stop Time Status Last Admin (Lopressor Inj) 5 mg Q5M PRN IV PUSH 03/02/17 11:30 03/03/17 14:02 (Protonix Inj) 40 mg DAILY IV 03/03/17 09:00 03/09/17 09:49 Miscellaneous Information 1 [id number] XX 03/02/17 12:30 (Chlorhexidine 2% Cloth) Taper DAILY@04 TOP 03/03/17 04:00 02/27/18 03:59 03/06/17 04:00 (Chlorhexidine 2% Cloth) 3 pack UNSCH PRN TOP 03/02/17 12:30 (Leslie-Colace) 1 tab BID PO 03/02/17 21:00 03/08/17 20:45 (Milk Of Magnesia Liq) 30 ml Q12H PRN PO 03/02/17 12:30 (Senokot) 17.2 mg Q12H PRN PO 03/02/17 12:30 (Dulcolax Supp) 10 mg DAILY PRN RECTAL 03/02/17 12:30 (Lactulose Liq) 30 ml DAILY PRN PO 03/02/17 12:30 (Ofirmev 1000 Mg/ 100 ml Inj) 1,000 mg Q6H PRN IV 03/02/17 20:45 03/07/17 10:27 (Albuterol Neb) 2.5 mg Q2HR NEB PRN NEB 03/03/17 13:30 03/08/17 07:40 (Apresoline Inj) 10 mg Q1HR PRN IV PUSH 03/03/17 13:45 03/09/17 00:34 (Trandate Inj) 10 mg Q1HR PRN IV PUSH 03/03/17 13:45 03/08/17 22:19 (Nitroglycerin 2% Oint) 2 inch Q6HR PRN TOPICAL 03/03/17 13:45 (Peridex 0.12% Liq) 15 ml BID@08,20 MT 03/03/17 20:00 03/09/17 09:37 Propofol 100 ml @ 2.937 mls/ hr TITRATE PRN IV 03/03/17 16:30 03/09/17 09:51 Fentanyl Citrate 250 ml @ 5 mls/hr TITRATE PRN IV 03/03/17 16:30 03/09/17 00:51 Nitroglycerin/ Dextrose 250 ml @ 1.5 mls/hr TITRATE PRN IV 03/03/17 17:00 (Edgardo Powder) 1 pack BID G-TUBE 03/04/17 21:00 03/09/17 09:49 Sodium Chloride 1,000 ml @ 84 mls/hr [id number] IV 03/04/17 12:00 03/08/17 20:49 (NovoLOG SUPPLEMENTAL SCALE) 1 Q4HR SQ 03/06/17 12:00 03/09/17 09:44 (D50w (Vial) Inj) 25 ml UNSCH PRN IV 03/06/17 09:30 (Glucagon Inj) 1 mg UNSCH PRN IM/SQ 03/06/17 09:30 (Tylenol 650 Mg/ 20 ml Liq) 650 mg Q4H PRN PO 03/06/17 12:00 03/06/17 12:40 (Aspirin Supp) 150 mg DAILY RECTAL 03/08/17 09:00 03/09/17 09:49 (Heparin Inj) 5,000 units BID SQ 03/07/17 21:00 03/09/17 09:49 Levetriacetam 500 mg/Sodium Chloride 105 ml @ 420 mls/hr Q12H IV 03/07/17 15:00 03/09/17 02:36 (Levemir Inj) 35 units Q12HR SQ 03/08/17 21:00 03/09/17 09:44 . Family History Mother at 50 from diabetic complications and renal disease. Father is alive with a history of CABG and AVR. . Substance Use Tobacco: None reported. Alcohol: None reported. Prescription med abuse:None reported. Illicits:None reported. Psychosocial History Psychosocial history obtained from patient's family. Patient is , no children. She raised her niece Alea as a daughter and cared for many family members. 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 She had no oriental orthodox affiliation, her niece stated the patient was an "atheist". She enjoyed traveling, she traveled alone frequently, and had been to many different countries across the world. Spiritual/Cultural Factors None known. Patient currently had no oriental orthodox affiliation. . (Aria Avendano) Living Will: Never completed Health Care Surrogate: Never completed Durable Power of Manager Book: Never completed Family/friends goals: The patient's family collectively agrees that the patient would not want any drastic measures completed to prolong her life if she was unable to be independent and return to her functional status before this hospitalization. They elected to change her code status to an alternate code today. The family would like time to process all of the information presented to them today and discuss options among themselves. They did state today that they would not likely proceed with a tracheostomy and PEG tube. . Ethical and Legal Issues None known. . (Lower,Aria QUILES) Physical Exam Vital Signs Date Time Temp Pulse Resp B/P (MAP) Pulse Ox O2 Delivery O2 Flow Rate FiO2 03/09/17 08:30 95 45 03/09/17 04:24 95 45 03/09/17 04:00 100.2 83 15 152/67 (95) 95 03/09/17 04:00 45 03/09/17 03:00 81 03/09/17 01:06 94 45 03/09/17 00:00 99.8 79 14 162/71 (101) 97 03/09/17 00:00 45 03/08/17 23:00 80 03/08/17 22:06 97 45 03/08/17 20:00 97 Mechanical Ventilator 45 03/08/17 20:00 100.8 76 14 160/71 (100) 96 03/08/17 20:00 45 03/08/17 19:15 92 45 03/08/17 19:00 76 03/08/17 19:00 91 Mechanical Ventilator 40 03/08/17 18:00 81 03/08/17 16:00 101.3 84 15 154/70 (98) 96 03/08/17 16:00 40 03/08/17 16:00 84 03/08/17 15:57 93 40 03/08/17 14:00 40 03/08/17 14:00 84 03/08/17 12:00 80 03/08/17 12:00 99.5 80 18 150/68 (95) 95 03/08/17 11:39 94 40 . Exam CONSTITUTIONAL/GENERAL: This is an adequately nourished patient, intubated, mechanically ventilated and sedated. TUBES/LINES/DRAINS: PIV x3, ETT, OGT, soft wrist restraints, rdz catheter SKIN: No jaundice, rashes, or lesions. Ecchymoses on upper extremities. No wounds seen anteriorly. Skin temperature appropriate. Not diaphoretic. HEAD: Atraumatic. Normocephalic. EYES: Pupils equal and round and reactive.No scleral icterus. No injection or drainage. Fundi not examined. ENT: Unable to assess hearing secondary to clinical condition. Nose without bleeding or purulent drainage. CARDIOVASCULAR: Regular rate and rhythm without murmurs, gallops, or rubs. No JVD. Peripheral pulses symmetric. RESPIRATORY/CHEST: Symmetric, unlabored respirations. Clear to auscultation. Breath sounds equal bilaterally. No wheezes, rales, or rhonchi. GASTROINTESTINAL: Abdomen soft, nondistended. Bowel sounds present. GENITOURINARY: Rdz catheter in place. MUSCULOSKELETAL: Extremities without clubbing, cyanosis, or edema. No mottling or clubbing. NEUROLOGICAL: Sedated on propofol and fentanyl. Sedation was lightened during exam. Withdraws to noxious stimuli on LLE only. Does not open eyes, does not follow commands. PSYCHIATRIC: Unable to assess secondary to clinical condition. . (Aria Avendano) Diagnostic Tests Laboratory Laboratory Tests Test 03/07/17 04:43 03/08/17 04:33 03/09/17 07:30 Blood Urea Nitrogen 52 MG/DL (7-18) 63 MG/DL (7-18) 69 MG/DL (7-18) Creatinine 2.06 MG/DL (0.50-1.00) 1.93 MG/DL (0.50-1.00) 1.84 MG/DL (0.50-1.00) Random Glucose 229 MG/DL (74-106) 225 MG/DL (74-106) 238 MG/DL (74-106) Calcium Level 8.6 MG/DL (8.5-10.1) 9.2 MG/DL (8.5-10.1) 8.8 MG/DL (8.5-10.1) Sodium Level 146 MEQ/L (136-145) 146 MEQ/L (136-145) 149 MEQ/L (136-145) Potassium Level 3.9 MEQ/L (3.5-5.1) 4.2 MEQ/L (3.5-5.1) 4.5 MEQ/L (3.5-5.1) Chloride Level 118 MEQ/L (98-107) 117 MEQ/L (98-107) 121 MEQ/L (98-107) Carbon Dioxide Level 18.5 MEQ/L (21.0-32.0) 20.0 MEQ/L (21.0-32.0) 21.0 MEQ/L (21.0-32.0) Anion Gap 10 MEQ/L (5-15) 9 MEQ/L (5-15) 7 MEQ/L (5-15) Estimat Glomerular Filtration Rate 24 ML/MIN (>89) 26 ML/MIN (>89) 28 ML/MIN (>89) . (Romana,Aria QUILES) Result Diagram: 03/05/17 0409 03/09/17 0730 Microbiology Microbiology Date/Time Source Procedure Growth Status 03/08/17 20:50 Blood Peripheral Aerobic Blood Culture Pending Received 03/08/17 20:50 Blood Peripheral Anaerobic Blood Culture Pending Received 03/08/17 20:43 Blood Peripheral Aerobic Blood Culture Pending Received 03/08/17 20:43 Blood Peripheral Anaerobic Blood Culture Pending Received 03/08/17 17:20 Sputum Endotracheal Gram Stain - Final Resulted 03/08/17 17:20 Sputum Endotracheal Sputum Culture Pending Resulted 03/08/17 16:38 Urine Catheterized Urine Urine Culture Pending Received Imaging Last Impressions Head CT 03/08/17 0000 Signed Impressions: Service Date/Time: Wednesday, March 08, 2017 17:49 - CONCLUSION: No significant change. Left middle cerebral artery distribution subacute infarct again noted. No mass effect, midline shift or interim bleed. Vinay Castellon MD Chest X-Ray 03/05/17 0600 Signed Impressions: Service Date/Time: Sunday, March 05, 2017 03:35 - CONCLUSION: 1. Stable ETT. NGT in the stomach. 2. Stable bilateral perihilar airspace disease. 3. Interval left lower lobe airspace disease. Israel Gallegos MD Abdomen/Pelvis CT 03/04/17 0000 Signed Impressions: Service Date/Time: February 16:31 - CONCLUSION: 1. Enlarged uterus with multiple masses most likely fibroids and also appears to be large mass left lower quadrant could be ovarian mass versus exophytic fibroid and underlying malignancy should be excluded. 2. Bibasilar consolidation. . Oziel Schmidt MD Renal Ultrasound 03/03/17 0000 Signed Impressions: Service Date/Time: Friday, March 03, 2017 17:58 - CONCLUSION: 1. Echogenic kidneys characteristic of medical renal disease with trace perinephric fluid. No hydronephrosis. 2. Abnormal cystic and solid lesions in the pelvis. Further evaluation with CT abdomen and pelvis recommended. Jerrell Quintero MD Cerebral Arteriogram 03/02/17 1511 Signed Impressions: Service Date/Time: Thursday, March 02, 2017 12:44 - CONCLUSION: Successful embolectomy of the left MCA territory using a Solumbra technique as above. Micky Sauer MD Neck CTA 03/02/17 1121 Signed Impressions: Service Date/Time: Thursday, March 02, 2017 11:54 - CONCLUSION: 1. No evidence of hemodynamically significant lesion. There is 0-10%% stenosis bilaterally. Anthony Bourne MD Head/Neck CTA with Brain Perfusion 03/02/17 1121 Signed Impressions: Service Date/Time: Thursday, March 02, 2017 11:54 - CONCLUSION: 1. Flow volume mismatch involving the entire left middle cerebral artery distribution. The patient is to go to catheter angiography for thrombolysis Anthony Bourne MD Head CTA 03/02/17 1121 Signed Impressions: Service Date/Time: Thursday, March 02, 2017 11:54 - CONCLUSION: 1. Nonocclusive thrombus involving the left middle cerebral artery as above Anthony Bourne MD Last [address] 03/08/17 0000 Signed Impressions: Service Date/Time: Wednesday, March 08, 2017 17:49 - CONCLUSION: No significant change. Left middle cerebral artery distribution subacute infarct again noted. No mass effect, midline shift or interim bleed. Vinay Castellon MD Procedures 03/02/17: Embolectomy and received IV tPA. 03/03/17: Intubated. (Aria AvendanoP) Patient/Family Conference Present at Family Conference: Edna Santiago (aunt), Sarah Robert (niece), Angel Perkins (dad), and his significant other Ms. Robles. Family Conference Location: Consult Room Issues Discussed: * Palliative care role, purpose, approach * Additional medical, psychosocial, and spiritual history * Patients general health, functional status, and cognitive changes in the months leading up to the current hospitalization * Family's understanding of the current medical problems * Family's understanding of prognosis * Patients goals of care as best understood from conversations and/or values * Current medical treatment options and benefits/burdens of those options * Likely scenarios regarding patient's recovery and functional status * Code status * Likely scenarios comparing ongoing aggressive care with a transition to comfort measures only * Questions answered to the best of my ability * Palliative care contact information provided * . (Romana,Aria QUILES) Assessment and Plan Disease Oriented Problem List: (1) Stroke due to embolism of left middle cerebral artery (2) Respiratory failure (3) HTN (hypertension) Symptom Scale: (1) Dyspnea (2) Encephalopathy Pertinent Non-Medical Issues Psychosocial:Psychosocial history obtained from patient's family. Patient is , no children. She raised her niece Alea as a daughter and cared for many family members. 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 She had no oriental orthodox affiliation, her niece stated the patient was an "atheist". She enjoyed traveling, she traveled alone frequently, and had been to many different countries across the world. Spiritual: No affiliation reported. 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 Legal: None known. Ethical issues impacting care: None known. . Important Contacts Edna Santiago (aunt): [phone] Sarah Robert (niece): [phone] Angel Perkins (dad): [phone], . Prognosis The patient was completely independent prior to this hospitalization, she has a long standing history of type 1 diabetes and hypertension which appears was not very well controlled. Unfortunately the patient suffered a CVA and has not had any neurological improvement despite medical treatment. Prognosis is guarded. Code Status: Alternative Code Plan * Legal decision maker: The patient does not have any completed written advanced directives. Per [place] statutes legal decision making would fall to the patient's next of kin which is her father Angel Perkins [phone], , he is amenable to making decisions regarding the patient's health care at this time and he is supported in his decision making by the rest of the patient's family. * CODE STATUS: Alternative code, intubation only * GOALS:The patient's family collectively agrees that the patient would not want any drastic measures completed to prolong her life if she was unable to be independent and return to her functional status before this hospitalization. They elected to change her code status to an alternate code today. The family would like time to process all of the information presented to them today and discuss options among themselves. They did state today that they would not likely proceed with a tracheostomy and PEG tube. * Symptom management: --dyspnea: Patient is intubated and mechanically ventilated at this time, she has been unable to tolerate SBTs thus far. Due to the nature of her CVA it is unlikely she will be able to protect her airway, it is unlikely she will be a candidate for medical extubation and will likely need a tracheostomy. Patient's family stated today that she would not want a tracheostomy. No recommendations at this time. --encephalopathy: S/P embolectomy and tPA, followed by hemorrhagic conversion. Currently sedated on propofol and fentanyl. No recommendations at this time. --malnutrition: Patient is at an ongoing risk for malnutrition secondary to bed bound status, CVA, and currently on mechanical ventilation. Albumin:3.0 on arrival. If goals are aggressive the patient would likely need a PEG tube in the future, currently on tube feeds via OGT. No recommendations at this time. (Aria Avendano) Thank you for the opportunity to participate in the care of Ms. Sánchez. (Aria Avendano) Attestation To help prompt me to consider important information that might be impacting today's encounter and assessment, information from prior notes written by myself or my colleagues may have been "brought forward" into today's note. My signature on this note, however, is an attestation that I personally performed the exam, history, and/or decision-making noted today, and, unless otherwise indicated, the interactions with patient, family, and staff as well as the review of records all occurred today. I also attest that the listed assessment and stated plan reflect my best clinical judgment today based on the combination of historical information, prior notes, and today's exam/ interactions. When time spent is documented, it refers only to time spent today by the signer, or if indicated, combined time spent today by collaborating physician/nurse practitioner. (Aria Avendano) Collaborating MD Comments Dual visit with Aria QUILES. Concur with above documentation. . (Leslie Sharp) Collaborating Comments Chart reviewed. Case discussed with palliative care ETTA. Above note reviewed and I concur. . (Sekou Morrison MD) RomanaAriateagan QUILES Mar 09, 2017 11:21 Leslie Sharp Mar 10, 2017 13:40 Sekou Morrison MD Apr 04, 2017 11:54
[2017-03-09] MEDS: SODIUM CHLOR 0.9% 1000 ML INJ 1,000 ML IV SCH (13:12)
[2017-03-09] MEDS: DOCUSATE SODIUM 50 MG/SENNA 8.6 MG TAB PO SCH ×2 (13:13→20:08)
[2017-03-10] VITALS (18 sets, daily range): BP systolic 134–145; BP diastolic 60–65; PULSE 65–81; RESP 14–16; TEMP 98.4–101; O2SAT 93–96
[2017-03-10] MEDS: INSULIN ASPART SUPPLEMENTAL SCALE SQ SCH ×6 (00:28→20:16)
[2017-03-10] MEDS: levETIRAcetam INJ 500 MG in SODIUM CHLORIDE 0.9% INJ 100 ML IV SCH ×2 (02:26→14:41)
[2017-03-10] MEDS: PROPOFOL 1000 MG/100 ML INJ 100 ML IV PRN ×5 (02:30→20:12)
[2017-03-10] MEDS: SODIUM CHLOR 0.9% 1000 ML INJ 1,000 ML IV SCH ×2 (03:25→10:53)
[2017-03-10] MEDS: CHLORHEXIDINE GLUCONATE 2 % 1 PACK (2 CLOTHS) TOP SCH (04:00)
[2017-03-10] MEDS: ACETAMINOPHEN 1000 MG/100 ML VIAL IV PRN ×2 (04:15→20:15)
[2017-03-10 06:05] LABS: BICARBONATE 20.9 MEQ/L (21.0-32.0); POTASSIUM 4.5 MEQ/L (3.5-5.1)
--- NOTE | 2017-03-10 08:07 | HHI.PR ---
Review/Management Diagnosis Acute ischemic stroke left MCA/M2 s/p clot extraction and iv tPA on 03/02/2017 Hypoxemic respiratory failure Diagnosis/Plan: (1) Received intravenous tissue plasminogen activator (t-PA) inemergency department ICD Codes: Z92.82 - Status post administration of tPA (rtPA) in a different facility within the last 24 hours prior to admission to current facility Status: Acute Plan: s/p iv tpa, s/p left mca embolectomy mild to moderate stroke on aspirin/hep recs ct brain -stable on propofol and fentanyl gtt's. difficult to do a neuro exam. reduce sedation as possible apparently palliative care being considered d/w rn (2) Respiratory failure ICD Codes: J96.90 - Respiratory failure, unspecified, unspecified whether with hypoxia or hypercapnia Status: Acute (3) Stroke due to embolism of left middle cerebral artery ICD Codes: I63.412 - Cerebral infarction due to embolism of left middle cerebral artery Status: Acute (4) HTN (hypertension) ICD Codes: I10 - Essential (primary) hypertension Status: Chronic Subjective Subjective Comments No acute events reported Active Medications Current Medications Medications (Trade) Dose Ordered Sig/Venecia Route Start Time Stop Time Status Last Admin (Lopressor Inj) 5 mg Q5M PRN IV PUSH 03/02/17 11:30 03/03/17 14:02 (Protonix Inj) 40 mg DAILY IV 03/03/17 09:00 03/09/17 09:49 Miscellaneous Information 1 Q361D XX 03/02/17 12:30 (Chlorhexidine 2% Cloth) Taper DAILY@04 TOP 03/03/17 04:00 02/27/18 03:59 03/06/17 04:00 (Chlorhexidine 2% Cloth) 3 pack UNSCH PRN TOP 03/02/17 12:30 (Leslie-Colace) 1 tab BID PO 03/02/17 21:00 03/09/17 20:08 (Milk Of Magnesia Liq) 30 ml Q12H PRN PO 03/02/17 12:30 (Senokot) 17.2 mg Q12H PRN PO 03/02/17 12:30 (Dulcolax Supp) 10 mg DAILY PRN RECTAL 03/02/17 12:30 (Lactulose Liq) 30 ml DAILY PRN PO 03/02/17 12:30 (Ofirmev 1000 Mg/ 100 ml Inj) 1,000 mg Q6H PRN IV 03/02/17 20:45 03/10/17 04:15 (Albuterol Neb) 2.5 mg Q2HR NEB PRN NEB 03/03/17 13:30 03/08/17 07:40 (Apresoline Inj) 10 mg Q1HR PRN IV PUSH 03/03/17 13:45 03/09/17 00:34 (Trandate Inj) 10 mg Q1HR PRN IV PUSH 03/03/17 13:45 03/08/17 22:19 (Nitroglycerin 2% Oint) 2 inch Q6HR PRN TOPICAL 03/03/17 13:45 (Peridex 0.12% Liq) 15 ml BID@08,20 MT 03/03/17 20:00 03/09/17 20:13 Propofol 100 ml @ 2.937 mls/ hr TITRATE PRN IV 03/03/17 16:30 03/10/17 04:16 Fentanyl Citrate 250 ml @ 5 mls/hr TITRATE PRN IV 03/03/17 16:30 03/09/17 20:08 Nitroglycerin/ Dextrose 250 ml @ 1.5 mls/hr TITRATE PRN IV 03/03/17 17:00 (Edgardo Powder) 1 pack BID G-TUBE 03/04/17 21:00 03/09/17 20:57 Sodium Chloride 1,000 ml @ 84 mls/hr [id number] IV 03/04/17 12:00 03/10/17 03:25 (NovoLOG SUPPLEMENTAL SCALE) 1 Q4HR SQ 03/06/17 12:00 03/10/17 04:10 (D50w (Vial) Inj) 25 ml UNSCH PRN IV 03/06/17 09:30 (Glucagon Inj) 1 mg UNSCH PRN IM/SQ 03/06/17 09:30 (Tylenol 650 Mg/ 20 ml Liq) 650 mg Q4H PRN PO 03/06/17 12:00 03/06/17 12:40 (Aspirin Supp) 150 mg DAILY RECTAL 03/08/17 09:00 03/09/17 09:49 (Heparin Inj) 5,000 units BID SQ 03/07/17 21:00 03/09/17 20:09 Levetriacetam 500 mg/Sodium Chloride 105 ml @ 420 mls/hr Q12H IV 03/07/17 15:00 03/10/17 02:26 (Levemir Inj) 35 units Q12HR SQ 03/08/17 21:00 03/09/17 20:14 Allergies Allergies Coded Allergies No Known Allergies (Unverified03/02/17) Review of Systems All other ROS: ROS reviewed as documented in chart, Unable to obtain Exam I&O / VS Vital Signs Date Time Temp Pulse Resp B/P (MAP) Pulse Ox O2 Delivery O2 Flow Rate FiO2 03/10/17 07:00 94 Mechanical Ventilator 45 03/10/17 04:32 95 45 03/10/17 04:00 101.0 75 15 135/60 (85) 94 03/10/17 04:00 45 03/10/17 03:00 80 03/10/17 01:18 94 45 03/10/17 00:00 99.7 76 14 136/60 (85) 93 03/10/17 00:00 45 03/09/17 23:00 75 03/09/17 22:12 93 45 03/09/17 20:00 45 03/09/17 20:00 100.1 79 16 138/63 (88) 94 03/09/17 20:00 79 03/09/17 19:09 93 45 03/09/17 19:00 94 Mechanical Ventilator 45 03/09/17 16:00 45 03/09/17 16:00 99.5 80 14 152/68 (96) 96 03/09/17 15:34 95 45 03/09/17 15:00 74 03/09/17 12:00 45 03/09/17 12:00 99.4 74 20 141/65 (90) 97 03/09/17 11:12 95 45 03/09/17 11:00 70 03/09/17 08:30 95 45 Exam Comments intubated, on propofol/fentanyl gtt's, stupor state, not following,no gaze preference, ou 3-2mm, rt hemiplegia, left side ue mild flexion, planter extensor on rt side Objective Micro and Labs Laboratory Tests Test 03/10/17 04:17 Blood Urea Nitrogen 78 Creatinine 2.04 Random Glucose 166 Calcium Level 8.6 Sodium Level 152 Potassium Level 4.5 Chloride Level 123 Carbon Dioxide Level 20.9 Anion Gap 8 Estimat Glomerular Filtration Rate 25 Date/Time Source Procedure Growth Status 03/08/17 20:50 Blood Peripheral Aerobic Blood Culture - Preliminary NO GROWTH IN 1 DAY Resulted 03/08/17 20:50 Blood Peripheral Anaerobic Blood Culture - Preliminary NO GROWTH IN 1 DAY Resulted 03/08/17 17:20 Sputum Endotracheal Gram Stain - Final Resulted 03/08/17 17:20 Sputum Endotracheal Sputum Culture - Preliminary HEAVY GROWTH NORMAL RESPIRATORY SAIDA... Resulted 03/08/17 16:38 Urine Catheterized Urine Urine Culture - Preliminary NO GROWTH IN 24 HOURS. Resulted Problem Qualifiers (1) Respiratory failure: (2) HTN (hypertension): Qualified Codes: I10 - Essential (primary) hypertension Zoltan Rizo MD Mar 10, 2017 08:07
[2017-03-10] MEDS: RESP: ALBUTEROL 2.5 MG/3 ML NEB (PRN) NEB (08:16)
[2017-03-10] MEDS: CHLORHEXIDINE 0.12% (ORAL KIT) 15 ML CUP MT SCH ×2 (09:33→20:10)
[2017-03-10] MEDS: JUVEN POWDER 1 PACK G-TUBE SCH ×2 (09:35→20:13)
[2017-03-10] MEDS: DOCUSATE SODIUM 50 MG/SENNA 8.6 MG TAB PO SCH ×2 (09:35→20:12)
[2017-03-10] MEDS: PANTOPRAZOLE SODIUM 40 MG VIAL IV SCH (09:35)
[2017-03-10] MEDS: ASPIRIN 300 MG SUPP RECTAL SCH (09:36)
[2017-03-10] MEDS: HEPARIN SODIUM - SQ 10,000 UNITS/ML VIAL SQ SCH ×2 (09:36→20:12)
[2017-03-10] MEDS: INSULIN DETEMIR 100 UNITS/ML VIAL SQ SCH ×2 (09:38→20:11)
[2017-03-10] MEDS ORDERED: LACTATED RINGER'S 1000 ML INJ 1,000 ML IV ONE (10:15)
--- NOTE | 2017-03-10 10:17 | HHI.CCPN ---
Subjective Remarks/Hospital Course The patient is a 66-year-old female with unknown past medical history who presented to [facility] emergency department by EMS as a stroke alert. The patient was staying at the [facility] and was last seen normal at approximately 09:50 a.m. when she was walking to the patio and then she stumbled back at 11:11 a.m. according to staff disoriented. When EMS arrived she was noted to have right facial droop and right-sided weakness with aphasia. On arrival to the emergency room she was hypertensive with a blood pressure of 244/113. The patient was given Lopressor 5 mg IV x3 and placed on Cardene drip. CT scan of the brain showed possible embolus to the left MCA. She also had a CTA of the brain which showed nonocclusive thrombus involving the left MCA and CTA with brain perfusion showed flow-volume mismatch involving the entire left MCA distribution. She was seen by Dr. Wheeler from neurology service and the patient went to interventional radiology to undergo a catheterization, Angiography for thrombolysis and cough retraction. When seen she was on Cardene drip at 10 mg an hour with current blood pressure of 205/92. The patient is on 2 liters oxygen with saturation of 98% and a pulse of 72. 03/03: Early resting in bed. Verbalizes a few words. Right-sided remains flaccid with right-sided facial droop. Noted patient is insulin pump. Subjective 03/04: Afebrile. Intubated yesterday due to acute hypoxemic respiratory failure. Currently in acute kidney injury possibly secondary to dye/IV contrast. Nonoliguric currently with 1225 cc past 24 hours. Following commands unilaterally with left upper and lower extremity. Right upper and lower extremity flaccid. 03/05: No improvement in neuro status. CT head with some edema. 03/06: No neurological improvement. Does not focus, track, or respond. Her insulin pump is off, sugars elevated. 03/07: Levemir increased for elevated BS, converted to Glucerna 1.5. No neurological improvement. 03/08: Glucose intolerance persists. No improvement, remains unresponsive. 03/09: Does not track or focus. She does get agitated and requires sedation to synchronize with vent. Major decision is if family wants to proceed with trach and PEG. 03/10: Palliative Care service working with family re: care plan, goals. No improvement after devastating dominant hemisphere CVA. Objective Vital Signs Date Time Temp Pulse Resp B/P (MAP) Pulse Ox O2 Delivery O2 Flow Rate FiO2 03/10/17 08:03 94 45 03/10/17 07:00 Mechanical Ventilator 03/10/17 04:00 101.0 75 15 135/60 (85) Intake and Output 03/10/17 03/10/17 03/11/17 08:00 16:00 00:00 Intake Total 2059 ml 100 ml Output Total 800 ml Balance 1259 ml 100 ml Result Diagram: 03/10/17 0417 Other Results Microbiology Date/Time Source Procedure Growth Status 03/08/17 16:38 Urine Catheterized Urine Urine Culture - Final NO GROWTH IN 48 HOURS. Complete Imaging Last Impressions Renal Ultrasound 03/03/17 0000 Signed Impressions: Service Date/Time: Friday, March 03, 2017 17:58 - CONCLUSION: 1. Echogenic kidneys characteristic of medical renal disease with trace perinephric fluid. No hydronephrosis. 2. Abnormal cystic and solid lesions in the pelvis. Further evaluation with CT abdomen and pelvis recommended. Jerrell Quintero MD Head CT 03/03/17 0000 Signed Impressions: Service Date/Time: Friday, March 03, 2017 14:18 - CONCLUSION: Very faint areas of high density within the left posterior parietal parenchyma measuring approximately 1 cm each suggestive of possible faint areas of parenchymal or subarachnoid hemorrhage as well as diffuse effacement of the posterior parietal sulci and underlying scattered areas of decreased attenuation consistent with acute infarction of the left posterior parietal lobe. Humberto Santillan MD Chest X-Ray 03/03/17 0000 Signed Impressions: Service Date/Time: Friday, March 03, 2017 16:41 - CONCLUSION: 1. ET tube in good position. 2. Bilateral airspace opacities, similar to prior. Gonzalo Madison MD Cerebral Arteriogram 03/02/17 1511 Signed Impressions: Service Date/Time: Thursday, March 02, 2017 12:44 - CONCLUSION: Successful embolectomy of the left MCA territory using a Solumbra technique as above. Micky Sauer MD Neck CTA 03/02/17 1121 Signed Impressions: Service Date/Time: Thursday, March 02, 2017 11:54 - CONCLUSION: 1. No evidence of hemodynamically significant lesion. There is 0-10%% stenosis bilaterally. Anthony Bourne MD Head/Neck CTA with Brain Perfusion 03/02/17 1121 Signed Impressions: Service Date/Time: Thursday, March 02, 2017 11:54 - CONCLUSION: 1. Flow volume mismatch involving the entire left middle cerebral artery distribution. The patient is to go to catheter angiography for thrombolysis Anthony Bourne MD Head CTA 03/02/17 1121 Signed Impressions: Service Date/Time: Thursday, March 02, 2017 11:54 - CONCLUSION: 1. Nonocclusive thrombus involving the left middle cerebral artery as above Anthony Bourne MD Objective Remarks GENERAL: 66 year old female, currently resting in bed in no acute distress orotracheally intubated SKIN: Warm and dry. No rash HEAD: Atraumatic. Normocephalic. EYES: Pupils equal and round 3 mm bilaterally and reactive. No scleral icterus. No injection or drainage. ENT: No nasal bleeding or discharge. Mucous membranes pink and moist. Oropharynx without erythema or exudates NECK: Trachea midline. No JVD. CARDIOVASCULAR: Regular rate and rhythm. S1, S2 no S4 without murmur RESPIRATORY: No accessory muscle use. Clear to auscultation. Breath sounds equal bilaterally. GASTROINTESTINAL: Abdomen soft, non-tender, nondistended. Hepatic and splenic margins not palpable. MUSCULOSKELETAL: Extremities without significant peripheral edema. No obvious deformities. NEUROLOGICAL: Opens eyes, no focus or track. Right facial droop. Right-side arm remains flaccid. Right leg withdraws to noxious stimulation. Spontaneously moving left upper and lower extremity. Tolerates CPAP still only briefly. 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 Repeat head CT 03/03 revealed a left parietal CVA with petechial hemorrhage surrounding Neurology/Dr. Wheeler following Will check EEG today 03/04 CV: Hypertension Hypertriglyceridemia of 277 Currently on as needed labetalol/hydralazine and Nitropaste to maintain systolic blood pressure less than 160/: Blood pressure goal recommendation and discussion per neurology 03/03 Home medications atenolol 50 mill grams daily and valsartan/HCTZ 320/25 one tablet daily 2-D echocardiogram revealed EF 55%. Mild LVH Initiate lipid-lowering agent once clinically appropriate Resp: Acute hypoxemic respiratory failure [facility] 16/550/07/02/39 Ventilator bundle Albuterol/ipratropium aerosols every 6 hours and albuterol aerosols every 2 hours. Dyspnea Spontaneous breathing trials daily GI: Gastroesophageal reflux disease Initiate tube feeding with Nepro goal 40 cc an hour Pantoprazole for GI prophylaxis. On omeprazole at home 20 mg daily Leslie-Colace one tablet twice a day for bowel regimen Glucerna 1.5 TFs Increase levemir to 35 bid : d/c Zapien catheter Endo: Diabetes mellitus Discontinue insulin pump. Restart when clinically indicated. Started on detemir 10 units subcutaneous twice a day Sliding-scale insulin with Accu-Cheks to maintain euglycemia/low regimen every 4 hours with Novolog Renal: Acute kidney injury question underlying chronic kidney disease Currently normal saline cc an hour Did receive IV dye for CT angiogram Check urine electrolytes and eosinophils. Renal ultrasound 03/03 revealed medical renal disease. Noted's cystic versus solid mass and pelvis. Recommended CT pelvis. Heme: Leukocytosis Monitor CBC daily. Follow trends ID: Monitor for infection MSK: Vitamin D deficiency Holding calcitriol 0.25 mg daily and ergocalciferol 2000 units daily. Resume when clinically indicated FEN: Replace electrolytes as clinically indicated Access - Utilize peripheral IV. Central line if indicated Prophylaxis - GI - pantoprazole - DVT - SCD/likely protocol prophylaxis Overall impression: Looks like a completed, large, dominant hemisphere CVA. Glucose intolerance persists. No improvement. Consult Palliative Care. Her father should arrive shortly. A niece is also verbal about her wishes. Unable to wean ventilator. Ever Leong MD Mar 10, 2017 10:17
--- NOTE | 2017-03-10 12:29 | HHI.HCPN ---
Reason for visit a. To assist with evaluation and management of symptoms including:dyspnea, encephalopathy, malnutrition b. To assist medical decision maker(s) with: better understanding of current medical conditions; weighing benefits/burdens of medical treatment options; making medical treatment decisions. . (Aria Avendano) Subjective/Interval History The patient is a 66 year old female who was brought to the ED by EMS on 03/02/17 for signs and symptoms of a stroke. The patient was evaluated by neurology shortly after arrival to the facility, she was then brought to interventional radiology for an embolectomy and subsequently received IV tPA. Imaging on included: follow up head CT revealed left parietal CVA with subarachnoid hemorrhage. Patient examined in room today, remains intubated and mechanically ventilated, sedated on propofol and fentanyl, unable to tolerate SBTs. There has been no improvement in neurological status, RN reports the patient is less responsive today than yesterday and minimally withdraws to noxious stimuli. Sedation was not lightened today during my exam, patient does not respond to noxious stimuli , does not open eyes. BP is stable, renal function continues to worsen. Dual visit with ETTA Malloy. . Family/friend interactions Telephone conference with patient's niece, updated on patient's status. . (Aria Avendano) Advance Directives Living Will: Never completed Health Care Surrogate: Never completed Durable Power of Senior Maintenance Mechanic: Never completed (Aria Avendano) Objective Vital Signs Date Time Temp Pulse Resp B/P (MAP) Pulse Ox O2 Delivery O2 Flow Rate FiO2 03/10/17 11:05 93 45 03/10/17 08:03 94 45 03/10/17 08:00 100.1 78 15 139/62 (87) 94 03/10/17 08:00 45 03/10/17 07:00 94 Mechanical Ventilator 45 03/10/17 07:00 73 03/10/17 04:32 95 45 03/10/17 04:00 101.0 75 15 135/60 (85) 94 03/10/17 04:00 45 03/10/17 03:00 80 03/10/17 01:18 94 45 03/10/17 00:00 99.7 76 14 136/60 (85) 93 03/10/17 00:00 45 03/09/17 23:00 75 03/09/17 22:12 93 45 03/09/17 20:00 45 03/09/17 20:00 100.1 79 16 138/63 (88) 94 03/09/17 20:00 79 03/09/17 19:09 93 45 03/09/17 19:00 94 Mechanical Ventilator 45 03/09/17 16:00 45 03/09/17 16:00 99.5 80 14 152/68 (96) 96 03/09/17 15:34 95 45 03/09/17 15:00 74 Intake & Output 03/10/17 03/10/17 07:00 19:00 Intake Total 2059 ml 1110 ml Output Total 800 ml Balance 1259 ml 1110 ml IV Total 1443 ml 1110 ml Tube Feeding 556 ml Tube Irrigant 60 ml Output Urine Total 800 ml # Bowel Movements 0 . Physical Exam CONSTITUTIONAL/GENERAL: This is an adequately nourished patient, intubated, mechanically ventilated and sedated. TUBES/LINES/DRAINS: PIV x3, ETT, OGT, soft wrist restraints, rdz catheter SKIN: No jaundice, rashes, or lesions. Ecchymoses on upper extremities. No wounds seen anteriorly. Skin temperature appropriate. Not diaphoretic. EYES: Pupils equal and round and reactive.No scleral icterus. No injection or drainage. Fundi not examined. CARDIOVASCULAR: Regular rate and rhythm without murmurs, gallops, or rubs. No JVD. Peripheral pulses symmetric. RESPIRATORY/CHEST: Symmetric, unlabored respirations. Clear to auscultation. Breath sounds equal bilaterally. No wheezes, rales, or rhonchi. GASTROINTESTINAL: Abdomen soft, nondistended. Bowel sounds present. GENITOURINARY: Rdz catheter in place. MUSCULOSKELETAL: Extremities without clubbing, cyanosis, or edema. No mottling or clubbing. NEUROLOGICAL: Sedated on propofol and fentanyl. Sedation was lightened during exam. Withdraws to noxious stimuli on LLE only. Does not open eyes, does not follow commands. PSYCHIATRIC: Unable to assess secondary to clinical condition. . (Aria Avendano) Diagnostic Tests Laboratory Laboratory Tests Test 03/08/17 04:33 03/09/17 07:30 03/10/17 04:17 Blood Urea Nitrogen 63 MG/DL (7-18) 69 MG/DL (7-18) 78 MG/DL (7-18) Creatinine 1.93 MG/DL (0.50-1.00) 1.84 MG/DL (0.50-1.00) 2.04 MG/DL (0.50-1.00) Random Glucose 225 MG/DL (74-106) 238 MG/DL (74-106) 166 MG/DL (74-106) Calcium Level 9.2 MG/DL (8.5-10.1) 8.8 MG/DL (8.5-10.1) 8.6 MG/DL (8.5-10.1) Sodium Level 146 MEQ/L (136-145) 149 MEQ/L (136-145) 152 MEQ/L (136-145) Potassium Level 4.2 MEQ/L (3.5-5.1) 4.5 MEQ/L (3.5-5.1) 4.5 MEQ/L (3.5-5.1) Chloride Level 117 MEQ/L (98-107) 121 MEQ/L (98-107) 123 MEQ/L (98-107) Carbon Dioxide Level 20.0 MEQ/L (21.0-32.0) 21.0 MEQ/L (21.0-32.0) 20.9 MEQ/L (21.0-32.0) Anion Gap 9 MEQ/L (5-15) 7 MEQ/L (5-15) 8 MEQ/L (5-15) Estimat Glomerular Filtration Rate 26 ML/MIN (>89) 28 ML/MIN (>89) 25 ML/MIN (>89) . (Aria Avendano [facility]) Result Diagram: 03/10/17 0417 Microbiology Microbiology Date/Time Source Procedure Growth Status 03/08/17 20:50 Blood Peripheral Aerobic Blood Culture - Preliminary NO GROWTH IN 2 DAYS Resulted 03/08/17 20:50 Blood Peripheral Anaerobic Blood Culture - Preliminary NO GROWTH IN 2 DAYS Resulted 03/08/17 20:43 Blood Peripheral Aerobic Blood Culture - Preliminary NO GROWTH IN 2 DAYS Resulted 03/08/17 20:43 Blood Peripheral Anaerobic Blood Culture - Preliminary NO GROWTH IN 2 DAYS Resulted 03/08/17 17:20 Sputum Endotracheal Gram Stain - Final Complete 03/08/17 17:20 Sputum Endotracheal Sputum Culture - Final HEAVY GROWTH NORMAL RESPIRATORY SAIDA Complete 03/08/17 16:38 Urine Catheterized Urine Urine Culture - Final NO GROWTH IN 48 HOURS. Complete Imaging Last [address] 03/08/17 0000 Signed Impressions: Service Date/Time: Wednesday, March 08, 2017 17:49 - CONCLUSION: No significant change. Left middle cerebral artery distribution subacute infarct again noted. No mass effect, midline shift or interim bleed. Vinay Castellon MD Procedures 03/02/17: Embolectomy and received IV tPA. 03/03/17: Intubated. (Aria Avendano) Assessment and Plan Disease Oriented Problem List: (1) Stroke due to embolism of left middle cerebral artery (2) Respiratory failure (3) HTN (hypertension) Symptom Scale: (1) Dyspnea (2) Encephalopathy Pertinent Non-Medical Issues Psychosocial:Psychosocial history obtained from patient's family. Patient is , no children. She raised her niece Alea as a daughter and cared for many family members. 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 She was currently working for the [employer]. She had no roman catholic affiliation, her niece stated the patient was an "atheist". She enjoyed traveling, she traveled alone frequently, and had been to many different countries across the world. Spiritual: No affiliation reported. Does not desire shake maker at this time. Legal: None known. Ethical issues impacting care: None known. . Important Contacts Edna Santiago (aunt): [phone] Sarah Robert (niece): [phone] Angel Perkins (dad): [phone], . Prognosis The patient was completely independent prior to this hospitalization, she has a long standing history of type 1 diabetes and hypertension which appears was not very well controlled. Unfortunately the patient suffered a CVA and has not had any neurological improvement despite medical treatment. Prognosis is guarded. Code Status: Alternative Code Plan * Legal decision maker: The patient does not have any completed written advanced directives. Per [place] statutes legal decision making would fall to the patient's next of kin which is her father Angel Perkins [phone], , he is amenable to making decisions regarding the patient's health care at this time and he is supported in his decision making by the rest of the patient's family. * CODE STATUS: Alternative code, intubation only * GOALS: No change in goals today. Pending further discussion over the coming days. Patient's family would like to speak to neurology for input regarding patient's prognosis and likelihood for a meaningful recovery. POC is patient's kailey Smith [phone]. 03/09/17: The patient's family collectively agrees that the patient would not want any drastic measures completed to prolong her life if she was unable to be independent and return to her functional status before this hospitalization elected to change her code status to an alternate code today. The family would like time to process all of the information presented to them today and discuss options among themselves. They did state today that they would not likely proceed with a tracheostomy and PEG tube. * Symptom management: --dyspnea: Patient is intubated and mechanically ventilated at this time, she has been unable to tolerate SBTs thus far. Due to the nature of her CVA it is unlikely she will be able to protect her airway, it is unlikely she will be a candidate for medical extubation and will likely need a tracheostomy. Patient's family stated today that she would not want a tracheostomy. No recommendations at this time. --encephalopathy: S/P embolectomy and tPA, followed by hemorrhagic conversion. Currently sedated on propofol and fentanyl. No recommendations at this time. --malnutrition: Patient is at an ongoing risk for malnutrition secondary to bed bound status, CVA, and currently on mechanical ventilation. Albumin:3.0 on arrival. If goals are aggressive the patient would likely need a PEG tube in the future, currently on tube feeds via OGT. No recommendations at this time. (Romana,Aria QUILES) Attestation To help prompt me to consider important information that might be impacting today's encounter and assessment, information from prior notes written by myself or my colleagues may have been "brought forward" into today's note. My signature on this note, however, is an attestation that I personally performed the exam, history, and/or decision-making noted today, and, unless otherwise indicated, the interactions with patient, family, and staff as well as the review of records all occurred today. I also attest that the listed assessment and stated plan reflect my best clinical judgment today based on the combination of historical information, prior notes, and today's exam/ interactions. When time spent is documented, it refers only to time spent today by the signer, or if indicated, combined time spent today by collaborating physician/nurse practitioner. (Aria Avendano) Collaborating MD Comments dual visit narda QUILES, concur with above documentation. . (Leslie Sharp) Collaborating MD Comments Chart reviewed. Case discussed with palliative care BOBCAT OPERATOR. Above note reviewed and I concur. . (Sekou Morrison MD) Aria Avendano Mar 10, 2017 12:29 Leslie Sharp Mar 11, 2017 09:40 Sekou Morrison MD Apr 04, 2017 11:58
[2017-03-10] MEDS: fentaNYL DRIP 250 ML IV PRN (12:33)
[2017-03-10] MEDS: POTASSIUM CHLORIDE INJ 10 MEQ in LACTATED RINGER'S 1000 ML INJ 1,000 ML IV SCH (12:55)
[2017-03-11] VITALS (17 sets, daily range): BP systolic 129–163; BP diastolic 60–72; PULSE 70–82; RESP 13–17; TEMP 99.2–100.9; O2SAT 93–96
[2017-03-11] MEDS: INSULIN ASPART SUPPLEMENTAL SCALE SQ SCH ×6 (00:14→20:29)
[2017-03-11] MEDS: PROPOFOL 1000 MG/100 ML INJ 100 ML IV PRN ×6 (00:15→20:37)
[2017-03-11] MEDS: POTASSIUM CHLORIDE INJ 10 MEQ in LACTATED RINGER'S 1000 ML INJ 1,000 ML IV SCH ×2 (02:07→16:17)
[2017-03-11] MEDS: levETIRAcetam INJ 500 MG in SODIUM CHLORIDE 0.9% INJ 100 ML IV SCH ×2 (02:17→15:20)
[2017-03-11] MEDS: CHLORHEXIDINE GLUCONATE 2 % 1 PACK (2 CLOTHS) TOP SCH (04:00)
[2017-03-11] MEDS: fentaNYL DRIP 250 ML IV PRN ×2 (04:49→20:37)
[2017-03-11] MEDS: INSULIN DETEMIR 100 UNITS/ML VIAL SQ SCH ×2 (08:42→20:37)
[2017-03-11] MEDS: CHLORHEXIDINE 0.12% (ORAL KIT) 15 ML CUP MT SCH ×2 (08:43→20:28)
[2017-03-11] MEDS: PANTOPRAZOLE SODIUM 40 MG VIAL IV SCH (08:44)
[2017-03-11] MEDS: JUVEN POWDER 1 PACK G-TUBE SCH ×2 (08:44→20:30)
[2017-03-11] MEDS: HEPARIN SODIUM - SQ 10,000 UNITS/ML VIAL SQ SCH ×2 (08:44→20:29)
[2017-03-11] MEDS: DOCUSATE SODIUM 50 MG/SENNA 8.6 MG TAB PO SCH ×2 (08:44→20:29)
[2017-03-11] MEDS: ASPIRIN 300 MG SUPP RECTAL SCH (08:46)
--- NOTE | 2017-03-11 11:10 | HHI.CCPN ---
Subjective Remarks/Hospital Course The patient is a 66-year-old female with unknown past medical history who presented to [facility] emergency department by EMS as a stroke alert. The patient was staying at the [facility] and was last seen normal at approximately 09:50 a.m. when she was walking to the patio and then she stumbled back at 11:11 a.m. according to staff disoriented. When EMS arrived she was noted to have right facial droop and right-sided weakness with aphasia. On arrival to the emergency room she was hypertensive with a blood pressure of 244/113. The patient was given Lopressor 5 mg IV x3 and placed on Cardene drip. CT scan of the brain showed possible embolus to the left MCA. She also had a CTA of the brain which showed nonocclusive thrombus involving the left MCA and CTA with brain perfusion showed flow-volume mismatch involving the entire left MCA distribution. She was seen by Dr. Wheeler from neurology service and the patient went to interventional radiology to undergo a catheterization, Angiography for thrombolysis and cough retraction. When seen she was on Cardene drip at 10 mg an hour with current blood pressure of 205/92. The patient is on 2 liters oxygen with saturation of 98% and a pulse of 72. 03/03: Early resting in bed. Verbalizes a few words. Right-sided remains flaccid with right-sided facial droop. Noted patient is insulin pump. Subjective 03/04: Afebrile. Intubated yesterday due to acute hypoxemic respiratory failure. Currently in acute kidney injury possibly secondary to dye/IV contrast. Nonoliguric currently with 1225 cc past 24 hours. Following commands unilaterally with left upper and lower extremity. Right upper and lower extremity flaccid. 03/05: No improvement in neuro status. CT head with some edema. 03/06: No neurological improvement. Does not focus, track, or respond. Her insulin pump is off, sugars elevated. 03/07: Levemir increased for elevated BS, converted to Glucerna 1.5. No neurological improvement. 03/08: Glucose intolerance persists. No improvement, remains unresponsive. 03/09: Does not track or focus. She does get agitated and requires sedation to synchronize with vent. Major decision is if family wants to proceed with trach and PEG. 03/10: Palliative Care service working with family re: care plan, goals. No improvement after devastating dominant hemisphere CVA. 03/11: No improvement overnight. Hydration state improved. Objective Vital Signs Date Time Temp Pulse Resp B/P (MAP) Pulse Ox O2 Delivery O2 Flow Rate FiO2 03/11/17 07:55 95 45 03/11/17 04:00 99.7 70 14 149/65 (93) 03/10/17 20:00 Mechanical Ventilator Intake and Output 03/11/17 03/11/17 03/12/17 08:00 16:00 00:00 Intake Total 602 ml Output Total 950 ml Balance -348 ml Result Diagram: 03/10/17 0417 Other Results Microbiology Date/Time Source Procedure Growth Status 03/08/17 17:20 Sputum Endotracheal Gram Stain - Final Complete 03/08/17 17:20 Sputum Endotracheal Sputum Culture - Final HEAVY GROWTH NORMAL RESPIRATORY SAIDA Complete 03/08/17 16:38 Urine Catheterized Urine Urine Culture - Final NO GROWTH IN 48 HOURS. Complete Imaging Last Impressions Renal Ultrasound 03/03/17 0000 Signed Impressions: Service Date/Time: Friday, March 03, 2017 17:58 - CONCLUSION: 1. Echogenic kidneys characteristic of medical renal disease with trace perinephric fluid. No hydronephrosis. 2. Abnormal cystic and solid lesions in the pelvis. Further evaluation with CT abdomen and pelvis recommended. Jerrell Quintero MD Head CT 03/03/17 0000 Signed Impressions: Service Date/Time: Friday, March 03, 2017 14:18 - CONCLUSION: Very faint areas of high density within the left posterior parietal parenchyma measuring approximately 1 cm each suggestive of possible faint areas of parenchymal or subarachnoid hemorrhage as well as diffuse effacement of the posterior parietal sulci and underlying scattered areas of decreased attenuation consistent with acute infarction of the left posterior parietal lobe. Humberto Santillan MD Chest X-Ray 03/03/17 0000 Signed Impressions: Service Date/Time: Friday, March 03, 2017 16:41 - CONCLUSION: 1. ET tube in good position. 2. Bilateral airspace opacities, similar to prior. Gonzalo Madison MD Cerebral Arteriogram 03/02/17 1511 Signed Impressions: Service Date/Time: Thursday, March 02, 2017 12:44 - CONCLUSION: Successful embolectomy of the left MCA territory using a Solumbra technique as above. Micky Sauer MD Neck CTA 03/02/17 1121 Signed Impressions: Service Date/Time: Thursday, March 02, 2017 11:54 - CONCLUSION: 1. No evidence of hemodynamically significant lesion. There is 0-10%% stenosis bilaterally. Anthony Bourne MD Head/Neck CTA with Brain Perfusion 03/02/17 1121 Signed Impressions: Service Date/Time: Thursday, March 02, 2017 11:54 - CONCLUSION: 1. Flow volume mismatch involving the entire left middle cerebral artery distribution. The patient is to go to catheter angiography for thrombolysis Anthony Bourne MD Head CTA 03/02/17 1121 Signed Impressions: Service Date/Time: Thursday, March 02, 2017 11:54 - CONCLUSION: 1. Nonocclusive thrombus involving the left middle cerebral artery as above Anthony Bourne MD Objective Remarks GENERAL: 66 year old female, currently resting in bed in no acute distress orotracheally intubated SKIN: Warm and dry. No rash HEAD: Atraumatic. Normocephalic. EYES: Pupils equal and round 3 mm bilaterally and reactive. No scleral icterus. No injection or drainage. ENT: No nasal bleeding or discharge. Mucous membranes pink and moist. Oropharynx without erythema or exudates NECK: Trachea midline. No JVD. CARDIOVASCULAR: Regular rate and rhythm. S1, S2 no S4 without murmur RESPIRATORY: No accessory muscle use. Clear to auscultation. Breath sounds equal bilaterally. GASTROINTESTINAL: Abdomen soft, non-tender, nondistended. Hepatic and splenic margins not palpable. MUSCULOSKELETAL: Extremities without significant peripheral edema. No obvious deformities. NEUROLOGICAL: Opens eyes briefly, no focus or tracking. Right facial droop. Right-side arm remains flaccid. Right leg withdraws to noxious stimulation. Spontaneously moving left upper and lower extremity. Tolerates CPAP still only briefly. 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 Repeat head CT 03/03 revealed a left parietal CVA with petechial hemorrhage surrounding Neurology/Dr. Wheeler following Will check EEG today 03/04 CV: Hypertension Hypertriglyceridemia of 277 Currently on as needed labetalol/hydralazine and Nitropaste to maintain systolic blood pressure less than 160/: Blood pressure goal recommendation and discussion per neurology 03/03 Home medications atenolol 50 mill grams daily and valsartan/HCTZ 320/25 one tablet daily 2-D echocardiogram revealed EF 55%. Mild LVH Initiate lipid-lowering agent once clinically appropriate Resp: Acute hypoxemic respiratory failure PRVC 16/550/1//40 Ventilator bundle Albuterol/ipratropium aerosols every 6 hours and albuterol aerosols every 2 hours. Dyspnea Spontaneous breathing trials daily GI: Gastroesophageal reflux disease Initiate tube feeding with Nepro goal 40 cc an hour Pantoprazole for GI prophylaxis. On omeprazole at home 20 mg daily Leslie-Colace one tablet twice a day for bowel regimen Glucerna 1.5 TFs Increase levemir to 35 bid : d/c Zapien catheter Endo: Diabetes mellitus Discontinue insulin pump. Restart when clinically indicated. Started on detemir 10 units subcutaneous twice a day Sliding-scale insulin with Accu-Cheks to maintain euglycemia/low regimen every 4 hours with Novolog Renal: Acute kidney injury question underlying chronic kidney disease Currently normal saline cc an hour Did receive IV dye for CT angiogram Check urine electrolytes and eosinophils. Renal ultrasound 03/03 revealed medical renal disease. Noted's cystic versus solid mass and pelvis. Recommended CT pelvis. Heme: Leukocytosis Monitor CBC daily. Follow trends ID: Monitor for infection MSK: Vitamin D deficiency Holding calcitriol 0.25 mg daily and ergocalciferol 2000 units daily. Resume when clinically indicated FEN: Replace electrolytes as clinically indicated Access - Utilize peripheral IV. Central line if indicated Prophylaxis - GI - pantoprazole - DVT - SCD/likely protocol prophylaxis Overall impression: Completed, large, dominant hemisphere CVA. No improvement. Palliative Care. Unable to wean ventilator. Ever Leong MD Mar 11, 2017 11:10
[2017-03-11] MEDS: hydrALAZINE HCL 20 MG/ML VIAL IV PUSH PRN (12:38)
--- NOTE | 2017-03-11 15:59 | MG ---
cc: SHARRI MENDES Lab No: [id number] Date: 03/11/2017 Age: Sex: F Race: TECHNIQUE 17-channel EEG. DESCRIPTION: The background rhythm is very slow in the delta frequency at 3-4 Hz. Amplitude is 10-30 microvolts. No lateralizing features are identified and no epileptiform features identified. Photic stimulation results in a poor driving response. INTERPRETATION Abnormal study consistent with severe encephalopathy. MD JERRY York/ARTL /3:33 PM /3:53 PM
--- NOTE | 2017-03-11 16:30 | HHI.HCPN ---
Reason for visit a. To assist with evaluation and management of symptoms including:dyspnea, encephalopathy, malnutrition b. To assist medical decision maker(s) with: better understanding of current medical conditions; weighing benefits/burdens of medical treatment options; making medical treatment decisions. . Subjective/Interval History The patient is a 66 year old female who was brought to the ED by EMS on 03/02/17 for signs and symptoms of a stroke. The patient was evaluated by neurology shortly after arrival to the facility, she was then brought to interventional radiology for an embolectomy and subsequently received IV tPA. Imaging on included: follow up head CT revealed left parietal CVA with subarachnoid hemorrhage. Patient examined in room today, remains intubated and mechanically ventilated, sedated on propofol and fentanyl, patient is still unable to tolerate SBTs. There has been no improvement in neurological status, patient is minimally responsive to noxious stimuli. Received call today from patient's father, he stated he wants to withdraw patient from artificial life support on Wednesday, he will be here tomorrow, Wednesday to sign exhibits, and would like to proceed with the withdrawal on Wednesday when the rest of the patient's family can be present. EEG 03/11: Abnormal study consistent with severe encephalopathy. Palliative care will continue to provide support and guidance regarding medical treatment options throughout this hospitalization. . Family/friend interactions Telephone conference with patient's father Angel Oliver and patient's Aunt Edna. . Advance Directives Living Will: Never completed Health Care Surrogate: Never completed Durable Power of Food And Beverage Order Clerk: Never completed Objective Vital Signs Date Time Temp Pulse Resp B/P (MAP) Pulse Ox O2 Delivery O2 Flow Rate FiO2 03/11/17 15:00 79 03/11/17 12:27 94 45 03/11/17 12:00 100.8 79 15 163/72 (102) 94 03/11/17 12:00 45 03/11/17 11:00 82 03/11/17 08:00 45 03/11/17 08:00 100.1 80 13 133/61 (85) 95 03/11/17 07:55 95 45 03/11/17 07:00 95 Mechanical Ventilator 45 03/11/17 07:00 76 03/11/17 04:49 96 45 03/11/17 04:00 45 03/11/17 04:00 99.7 70 14 149/65 (93) 95 03/11/17 03:00 72 03/11/17 01:30 96 45 03/11/17 00:00 45 03/11/17 00:00 99.9 75 14 130/61 (84) 96 03/10/17 23:00 75 03/10/17 22:25 96 45 03/10/17 20:37 96 45 03/10/17 20:00 76 03/10/17 20:00 45 03/10/17 20:00 96 Mechanical Ventilator 45 03/10/17 20:00 100.1 76 15 145/65 (91) 96 Intake & Output 03/11/17 03/11/17 07:00 19:00 Intake Total 902 ml 200 ml Output Total 950 ml Balance -48 ml 200 ml IV Total 300 ml 200 ml Tube Feeding 482 ml Tube Irrigant 120 ml Output Urine Total 950 ml # Bowel Movements 0 . Physical Exam CONSTITUTIONAL/GENERAL: This is an adequately nourished patient, intubated, mechanically ventilated and sedated. TUBES/LINES/DRAINS: PIV x3, ETT, OGT, soft wrist restraints, rdz catheter SKIN: No jaundice, rashes, or lesions. Ecchymoses on upper extremities. No wounds seen anteriorly. Skin temperature appropriate. Not diaphoretic. EYES: Pupils equal and round and reactive.No scleral icterus. No injection or drainage. Fundi not examined. CARDIOVASCULAR: Regular rate and rhythm without murmurs, gallops, or rubs. No JVD. Peripheral pulses symmetric. RESPIRATORY/CHEST: Symmetric, unlabored respirations. Course crackles bilaterally. GASTROINTESTINAL: Abdomen soft, nondistended. Bowel sounds present. GENITOURINARY: Rdz catheter in place. MUSCULOSKELETAL: Extremities without clubbing, cyanosis. No mottling. BLE +2 edema. NEUROLOGICAL: Sedated on propofol and fentanyl. Minimally responsive to noxious stimuli. Does not open eyes, does not follow commands. PSYCHIATRIC: Unable to assess secondary to clinical condition. . Diagnostic Tests Laboratory Laboratory Tests Test 03/09/17 07:30 03/10/17 04:17 Blood Urea Nitrogen 69 MG/DL (7-18) 78 MG/DL (7-18) Creatinine 1.84 MG/DL (0.50-1.00) 2.04 MG/DL (0.50-1.00) Random Glucose 238 MG/DL (74-106) 166 MG/DL (74-106) Calcium Level 8.8 MG/DL (8.5-10.1) 8.6 MG/DL (8.5-10.1) Sodium Level 149 MEQ/L (136-145) 152 MEQ/L (136-145) Potassium Level 4.5 MEQ/L (3.5-5.1) 4.5 MEQ/L (3.5-5.1) Chloride Level 121 MEQ/L (98-107) 123 MEQ/L (98-107) Carbon Dioxide Level 21.0 MEQ/L (21.0-32.0) 20.9 MEQ/L (21.0-32.0) Anion Gap 7 MEQ/L (5-15) 8 MEQ/L (5-15) Estimat Glomerular Filtration Rate 28 ML/MIN (>89) 25 ML/MIN (>89) Result Diagram: 03/10/17 0417 Microbiology Microbiology Date/Time Source Procedure Growth Status 03/08/17 20:50 Blood Peripheral Aerobic Blood Culture - Preliminary NO GROWTH IN 3 DAYS Resulted 03/08/17 20:50 Blood Peripheral Anaerobic Blood Culture - Preliminary NO GROWTH IN 3 DAYS Resulted 03/08/17 20:43 Blood Peripheral Aerobic Blood Culture - Preliminary NO GROWTH IN 3 DAYS Resulted 03/08/17 20:43 Blood Peripheral Anaerobic Blood Culture - Preliminary NO GROWTH IN 3 DAYS Resulted 03/08/17 17:20 Sputum Endotracheal Gram Stain - Final Complete 03/08/17 17:20 Sputum Endotracheal Sputum Culture - Final HEAVY GROWTH NORMAL RESPIRATORY SAIDA Complete 03/08/17 16:38 Urine Catheterized Urine Urine Culture - Final NO GROWTH IN 48 HOURS. Complete Procedures 03/02/17: Embolectomy and received IV tPA. 03/03/17: Intubated. Assessment and Plan Disease Oriented Problem List: (1) Stroke due to embolism of left middle cerebral artery (2) Respiratory failure (3) HTN (hypertension) Symptom Scale: (1) Dyspnea (2) Encephalopathy Pertinent Non-Medical Issues Psychosocial:Psychosocial history obtained from patient's family. Patient is , no children. She raised her niece Alea as a daughter and cared for many family members. 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 She was currently working for the [employer]. She had no sabianist affiliation, her niece stated the patient was an "atheist". She enjoyed traveling, she traveled alone frequently, and had been to many different countries across the world. Spiritual: No affiliation reported. Does not desire optometric technologist at this time. Legal: None known. Ethical issues impacting care: None known. . Important Contacts Edna Santiago (aunt): [phone] Sarah Robert (niece): [phone] Angel Perkins (dad): [phone], . Prognosis The patient was completely independent prior to this hospitalization, she has a long standing history of type 1 diabetes and hypertension which appears was not very well controlled. Unfortunately the patient suffered a CVA and has not had any neurological improvement despite medical treatment. Prognosis is guarded. Code Status: Alternative Code Plan * Legal decision maker: The patient does not have any completed written advanced directives. Per [place] statutes legal decision making would fall to the patient's next of kin which is her father Angel Perkins [phone], , he is amenable to making decisions regarding the patient's health care at this time and he is supported in his decision making by the rest of the patient's family. * CODE STATUS: Alternative code, intubation only * GOALS: Patient's father Angel Oliver called today, he stated he would like to withdraw artificial life support on Wednesday. * Patient's family would like to speak to neurology for input regarding patient 's prognosis and likelihood for a meaningful recovery. POC is patient's niece Sarah [phone]. 03/09/17: The patient's family collectively agrees that the patient would not want any drastic measures completed to prolong her life if she was unable to be independent and return to her functional status before this hospitalization elected to change her code status to an alternate code today. The family would like time to process all of the information presented to them today and discuss options among themselves. They did state today that they would not likely proceed with a tracheostomy and PEG tube. * Symptom management: --dyspnea: Patient is intubated and mechanically ventilated at this time, she has been unable to tolerate SBTs thus far. Due to the nature of her CVA it is unlikely she will be able to protect her airway, it is unlikely she will be a candidate for medical extubation and will likely need a tracheostomy. Patient's family stated today that she would not want a tracheostomy. No recommendations at this time. --encephalopathy: S/P embolectomy and tPA, followed by hemorrhagic conversion. Currently sedated on propofol and fentanyl. No recommendations at this time. --malnutrition: Patient is at an ongoing risk for malnutrition secondary to bed bound status, CVA, and currently on mechanical ventilation. Albumin:3.0 on arrival. Currently on tube feeds via OGT. No recommendations at this time. Attestation To help prompt me to consider important information that might be impacting today's encounter and assessment, information from prior notes written by myself or my colleagues may have been "brought forward" into today's note. My signature on this note, however, is an attestation that I personally performed the exam, history, and/or decision-making noted today, and, unless otherwise indicated, the interactions with patient, family, and staff as well as the review of records all occurred today. I also attest that the listed assessment and stated plan reflect my best clinical judgment today based on the combination of historical information, prior notes, and today's exam/ interactions. When time spent is documented, it refers only to time spent today by the signer, or if indicated, combined time spent today by collaborating physician/nurse practitioner. Aria Avendano Mar 11, 2017 16:30
[2017-03-12] VITALS (15 sets, daily range): BP systolic 139–158; BP diastolic 63–71; PULSE 73–89; RESP 14–16; TEMP 99.1–101.4; O2SAT 94–96
[2017-03-12] MEDS: levETIRAcetam INJ 500 MG in SODIUM CHLORIDE 0.9% INJ 100 ML IV SCH ×2 (03:00→15:07)
[2017-03-12] MEDS: CHLORHEXIDINE GLUCONATE 2 % 1 PACK (2 CLOTHS) TOP SCH (04:00)
[2017-03-12] MEDS: INSULIN ASPART SUPPLEMENTAL SCALE SQ SCH ×5 (04:21→20:24)
[2017-03-12] MEDS: PROPOFOL 1000 MG/100 ML INJ 100 ML IV PRN ×5 (04:22→19:56)
[2017-03-12] MEDS: POTASSIUM CHLORIDE INJ 10 MEQ in LACTATED RINGER'S 1000 ML INJ 1,000 ML IV SCH (04:22)
[2017-03-12] MEDS: fentaNYL DRIP 250 ML IV PRN ×2 (06:43→18:30)
[2017-03-12 06:49] LABS: BICARBONATE 22.3 MEQ/L (21.0-32.0); POTASSIUM 4.9 MEQ/L (3.5-5.1)
--- NOTE | 2017-03-12 07:45 | HHI.PR ---
Review/Management Diagnosis Acute ischemic stroke left MCA/M2 s/p clot extraction and iv tPA on 03/02/2017 Hypoxemic respiratory failure Diagnosis/Plan: (1) Received intravenous tissue plasminogen activator (t-PA) inemergency department ICD Codes: Z92.82 - Status post administration of tPA (rtPA) in a different facility within the last 24 hours prior to admission to current facility Status: Acute Plan: s/p iv tpa, s/p left mca embolectomy mild to moderate stroke on aspirin/hep recs limited exam mri brain not performed as pt's father did not want her to have any more procedures and they are strongly considering withdrawal tomorrow pt with respiratory failure d/w rn (2) Respiratory failure ICD Codes: J96.90 - Respiratory failure, unspecified, unspecified whether with hypoxia or hypercapnia Status: Acute (3) Stroke due to embolism of left middle cerebral artery ICD Codes: I63.412 - Cerebral infarction due to embolism of left middle cerebral artery Status: Acute (4) HTN (hypertension) ICD Codes: I10 - Essential (primary) hypertension Status: Chronic Subjective Subjective Comments No acute events reported Active Medications Current Medications Medications (Trade) Dose Ordered Sig/Venecia Route Start Time Stop Time Status Last Admin (Lopressor Inj) 5 mg Q5M PRN IV PUSH 03/02/17 11:30 03/03/17 14:02 (Protonix Inj) 40 mg DAILY IV 03/03/17 09:00 03/11/17 08:44 Miscellaneous Information 1 Q361D XX 03/02/17 12:30 (Chlorhexidine 2% Cloth) Taper DAILY@04 TOP 03/03/17 04:00 02/27/18 03:59 03/06/17 04:00 (Chlorhexidine 2% Cloth) 3 pack UNSCH PRN TOP 03/02/17 12:30 (Leslie-Colace) 1 tab BID PO 03/02/17 21:00 03/11/17 20:29 (Milk Of Magnesia Liq) 30 ml Q12H PRN PO 03/02/17 12:30 (Senokot) 17.2 mg Q12H PRN PO 03/02/17 12:30 (Dulcolax Supp) 10 mg DAILY PRN RECTAL 03/02/17 12:30 (Lactulose Liq) 30 ml DAILY PRN PO 03/02/17 12:30 (Ofirmev 1000 Mg/ 100 ml Inj) 1,000 mg Q6H PRN IV 03/02/17 20:45 03/10/17 20:15 (Albuterol Neb) 2.5 mg Q2HR NEB PRN NEB 03/03/17 13:30 03/10/17 08:16 (Apresoline Inj) 10 mg Q1HR PRN IV PUSH 03/03/17 13:45 03/11/17 12:38 (Trandate Inj) 10 mg Q1HR PRN IV PUSH 03/03/17 13:45 03/08/17 22:19 (Nitroglycerin 2% Oint) 2 inch Q6HR PRN TOPICAL 03/03/17 13:45 (Peridex 0.12% Liq) 15 ml BID@08,20 MT 03/03/17 20:00 03/11/17 20:28 Propofol 100 ml @ 2.937 mls/ hr TITRATE PRN IV 03/03/17 16:30 03/12/17 04:22 Fentanyl Citrate 250 ml @ 5 mls/hr TITRATE PRN IV 03/03/17 16:30 03/12/17 06:43 Nitroglycerin/ Dextrose 250 ml @ 1.5 mls/hr TITRATE PRN IV 03/03/17 17:00 (Degardo Powder) 1 pack BID G-TUBE 03/04/17 21:00 03/11/17 20:30 (NovoLOG SUPPLEMENTAL SCALE) 1 Q4HR SQ 03/06/17 12:00 03/12/17 04:21 (D50w (Vial) Inj) 25 ml UNSCH PRN IV 03/06/17 09:30 (Glucagon Inj) 1 mg UNSCH PRN IM/SQ 03/06/17 09:30 (Tylenol 650 Mg/ 20 ml Liq) 650 mg Q4H PRN PO 03/06/17 12:00 03/06/17 12:40 (Aspirin Supp) 150 mg DAILY RECTAL 03/08/17 09:00 03/11/17 08:46 (Heparin Inj) 5,000 units BID SQ 03/07/17 21:00 03/11/17 20:29 Levetriacetam 500 mg/Sodium Chloride 105 ml @ 420 mls/hr Q12H IV 03/07/17 15:00 03/12/17 03:00 (Levemir Inj) 35 units Q12HR SQ 03/08/17 21:00 03/11/17 20:37 Potassium Chloride 10 meq/ Lactated Ringer's 1,005 ml @ 75 mls/hr [id number] IV 03/10/17 12:00 03/12/17 04:22 Allergies Allergies Coded Allergies No Known Allergies (Unverified03/02/17) Review of Systems All other ROS: ROS reviewed as documented in chart, Unable to obtain Exam I&O / VS Vital Signs Date Time Temp Pulse Resp B/P (MAP) Pulse Ox O2 Delivery O2 Flow Rate FiO2 03/12/17 04:00 100.6 73 15 141/63 (89) 95 03/12/17 04:00 45 03/12/17 03:00 73 03/12/17 02:53 96 45 03/12/17 00:00 45 03/12/17 00:00 99.1 75 15 139/65 (89) 95 03/11/17 23:00 72 03/11/17 20:26 95 45 03/11/17 20:00 99.2 75 16 129/60 (83) 93 03/11/17 20:00 76 03/11/17 20:00 45 03/11/17 16:10 96 45 03/11/17 16:00 45 03/11/17 16:00 100.9 77 17 147/67 (93) 95 03/11/17 15:00 79 03/11/17 12:27 94 45 03/11/17 12:00 100.8 79 15 163/72 (102) 94 03/11/17 12:00 45 03/11/17 11:00 82 03/11/17 08:00 45 03/11/17 08:00 100.1 80 13 133/61 (85) 95 03/11/17 07:55 95 45 Cardiology: Normal peripheral perfusion Exam Comments intubated, on propofol/fentanyl gtt's, coma state, not following,no gaze preference, ou 3 sluggish mm, not withdrawing Objective Micro and Labs Laboratory Tests Test 03/12/17 05:30 Blood Urea Nitrogen 76 Creatinine 1.81 Random Glucose 173 Calcium Level 8.9 Sodium Level 154 Potassium Level 4.9 Chloride Level 125 Carbon Dioxide Level 22.3 Anion Gap 7 Estimat Glomerular Filtration Rate 28 Date/Time Source Procedure Growth Status 03/08/17 20:50 Blood Peripheral Aerobic Blood Culture - Preliminary NO GROWTH IN 3 DAYS Resulted 03/08/17 20:50 Blood Peripheral Anaerobic Blood Culture - Preliminary NO GROWTH IN 3 DAYS Resulted 03/08/17 17:20 Sputum Endotracheal Gram Stain - Final Complete 03/08/17 17:20 Sputum Endotracheal Sputum Culture - Final HEAVY GROWTH NORMAL RESPIRATORY SAIDA Complete 03/08/17 16:38 Urine Catheterized Urine Urine Culture - Final NO GROWTH IN 48 HOURS. Complete Problem Qualifiers (1) Respiratory failure: (2) HTN (hypertension): Qualified Codes: I10 - Essential (primary) hypertension Zoltan Rizo MD Mar 12, 2017 07:45
[2017-03-12] MEDS: CHLORHEXIDINE 0.12% (ORAL KIT) 15 ML CUP MT SCH ×2 (08:00→20:34)
[2017-03-12] MEDS: PANTOPRAZOLE SODIUM 40 MG VIAL IV SCH (08:59)
[2017-03-12] MEDS: DOCUSATE SODIUM 50 MG/SENNA 8.6 MG TAB PO SCH ×2 (08:59→20:32)
[2017-03-12] MEDS: JUVEN POWDER 1 PACK G-TUBE SCH ×2 (08:59→20:33)
[2017-03-12] MEDS: INSULIN DETEMIR 100 UNITS/ML VIAL SQ SCH ×2 (09:00→20:24)
[2017-03-12] MEDS: ASPIRIN 300 MG SUPP RECTAL SCH (09:00)
[2017-03-12] MEDS: HEPARIN SODIUM - SQ 10,000 UNITS/ML VIAL SQ SCH ×2 (09:00→20:32)
--- NOTE | 2017-03-12 09:29 | HHI.CCPN ---
Subjective Remarks/Hospital Course The patient is a 66-year-old female with unknown past medical history who presented to [facility] emergency department by EMS as a stroke alert. The patient was staying at the [facility] and was last seen normal at approximately 09:50 a.m. when she was walking to the patio and then she stumbled back at 11:11 a.m. according to staff disoriented. When EMS arrived she was noted to have right facial droop and right-sided weakness with aphasia. On arrival to the emergency room she was hypertensive with a blood pressure of 244/113. The patient was given Lopressor 5 mg IV x3 and placed on Cardene drip. CT scan of the brain showed possible embolus to the left MCA. She also had a CTA of the brain which showed nonocclusive thrombus involving the left MCA and CTA with brain perfusion showed flow-volume mismatch involving the entire left MCA distribution. She was seen by Dr. Wheeler from neurology service and the patient went to interventional radiology to undergo a catheterization, Angiography for thrombolysis and cough retraction. When seen she was on Cardene drip at 10 mg an hour with current blood pressure of 205/92. The patient is on 2 liters oxygen with saturation of 98% and a pulse of 72. 03/03: Early resting in bed. Verbalizes a few words. Right-sided remains flaccid with right-sided facial droop. Noted patient is insulin pump. Subjective 03/04: Afebrile. Intubated yesterday due to acute hypoxemic respiratory failure. Currently in acute kidney injury possibly secondary to dye/IV contrast. Nonoliguric currently with 1225 cc past 24 hours. Following commands unilaterally with left upper and lower extremity. Right upper and lower extremity flaccid. 03/05: No improvement in neuro status. CT head with some edema. 03/06: No neurological improvement. Does not focus, track, or respond. Her insulin pump is off, sugars elevated. 03/07: Levemir increased for elevated BS, converted to Glucerna 1.5. No neurological improvement. 03/08: Glucose intolerance persists. No improvement, remains unresponsive. 03/09: Does not track or focus. She does get agitated and requires sedation to synchronize with vent. Major decision is if family wants to proceed with trach and PEG. 03/10: Palliative Care service working with family re: care plan, goals. No improvement after devastating dominant hemisphere CVA. 03/11: No improvement overnight. Hydration state improved. 03/12: Weight is up 16 liters. Generally edematous. No neurological improvement. Objective Vital Signs Date Time Temp Pulse Resp B/P (MAP) Pulse Ox O2 Delivery O2 Flow Rate FiO2 03/12/17 04:00 100.6 73 15 141/63 (89) 95 03/12/17 04:00 45 03/11/17 07:00 Mechanical Ventilator Intake and Output 03/12/17 03/12/17 03/13/17 08:00 16:00 00:00 Intake Total 1972 ml Output Total 900 ml Balance 1072 ml Result Diagram: 03/12/17 0530 Imaging Last Impressions Renal Ultrasound 03/03/17 0000 Signed Impressions: Service Date/Time: Friday, March 03, 2017 17:58 - CONCLUSION: 1. Echogenic kidneys characteristic of medical renal disease with trace perinephric fluid. No hydronephrosis. 2. Abnormal cystic and solid lesions in the pelvis. Further evaluation with CT abdomen and pelvis recommended. Jerrell Quintero MD Head CT 03/03/17 0000 Signed Impressions: Service Date/Time: Friday, March 03, 2017 14:18 - CONCLUSION: Very faint areas of high density within the left posterior parietal parenchyma measuring approximately 1 cm each suggestive of possible faint areas of parenchymal or subarachnoid hemorrhage as well as diffuse effacement of the posterior parietal sulci and underlying scattered areas of decreased attenuation consistent with acute infarction of the left posterior parietal lobe. Humberto Santillan MD Chest X-Ray 03/03/17 0000 Signed Impressions: Service Date/Time: Friday, March 03, 2017 16:41 - CONCLUSION: 1. ET tube in good position. 2. Bilateral airspace opacities, similar to prior. Gonzalo Madison MD Cerebral Arteriogram 03/02/17 1511 Signed Impressions: Service Date/Time: Thursday, March 02, 2017 12:44 - CONCLUSION: Successful embolectomy of the left MCA territory using a Solumbra technique as above. Micky Sauer MD Neck CTA 03/02/17 1121 Signed Impressions: Service Date/Time: Thursday, March 02, 2017 11:54 - CONCLUSION: 1. No evidence of hemodynamically significant lesion. There is 0-10%% stenosis bilaterally. Anthony Bourne MD Head/Neck CTA with Brain Perfusion 03/02/17 1121 Signed Impressions: Service Date/Time: Thursday, March 02, 2017 11:54 - CONCLUSION: 1. Flow volume mismatch involving the entire left middle cerebral artery distribution. The patient is to go to catheter angiography for thrombolysis Anthony Bourne MD Head CTA 03/02/17 1121 Signed Impressions: Service Date/Time: Thursday, March 02, 2017 11:54 - CONCLUSION: 1. Nonocclusive thrombus involving the left middle cerebral artery as above Anthony Bourne MD Objective Remarks GENERAL: 66 year old female, currently resting in bed in no acute distress orotracheally intubated SKIN: Warm and dry. No rash HEAD: Atraumatic. Normocephalic. EYES: Pupils equal and round 3 mm bilaterally and reactive. No scleral icterus. No injection or drainage. ENT: No nasal bleeding or discharge. Mucous membranes pink and moist. Oropharynx without erythema or exudates NECK: Trachea midline. No JVD. CARDIOVASCULAR: Regular rate and rhythm. S1, S2 no S4 without murmur RESPIRATORY: No accessory muscle use. Clear to auscultation. Breath sounds equal bilaterally. GASTROINTESTINAL: Abdomen soft, non-tender, nondistended. Hepatic and splenic margins not palpable. MUSCULOSKELETAL: Extremities without significant peripheral edema. No obvious deformities. NEUROLOGICAL: Opens eyes briefly, no focus or tracking. Right facial droop. Right-side arm remains flaccid. Right leg withdraws to noxious stimulation. Spontaneously moving left upper and lower extremity. Tolerates CPAP still only briefly. 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 Repeat head CT 03/03 revealed a left parietal CVA with petechial hemorrhage surrounding Neurology/Dr. Wheeler following Will check EEG today 03/04 CV: Hypertension Hypertriglyceridemia of 277 Currently on as needed labetalol/hydralazine and Nitropaste to maintain systolic blood pressure less than 160/: Blood pressure goal recommendation and discussion per neurology 03/03 Home medications atenolol 50 mill grams daily and valsartan/HCTZ 320/25 one tablet daily 2-D echocardiogram revealed EF 55%. Mild LVH Initiate lipid-lowering agent once clinically appropriate Resp: Acute hypoxemic respiratory failure [facility] 16/550/07/02/39 Ventilator bundle Albuterol/ipratropium aerosols every 6 hours and albuterol aerosols every 2 hours. Dyspnea Spontaneous breathing trials daily GI: Gastroesophageal reflux disease Initiate tube feeding with Nepro goal 40 cc an hour Pantoprazole for GI prophylaxis. On omeprazole at home 20 mg daily Leslie-Colace one tablet twice a day for bowel regimen Glucerna 1.5 TFs Increase levemir to 35 bid : d/c Zapien catheter Endo: Diabetes mellitus Discontinue insulin pump. Restart when clinically indicated. Started on detemir 10 units subcutaneous twice a day Sliding-scale insulin with Accu-Cheks to maintain euglycemia/low regimen every 4 hours with Novolog Renal: Acute kidney injury question underlying chronic kidney disease Currently normal saline cc an hour Did receive IV dye for CT angiogram Check urine electrolytes and eosinophils. Renal ultrasound 03/03 revealed medical renal disease. Noted's cystic versus solid mass and pelvis. Recommended CT pelvis. Weight up 17 liters. Start lasix gtt, follow Creat closely Heme: Leukocytosis Monitor CBC daily. Follow trends ID: Monitor for infection MSK: Vitamin D deficiency Holding calcitriol 0.25 mg daily and ergocalciferol 2000 units daily. Resume when clinically indicated FEN: Replace electrolytes as clinically indicated Access - Utilize peripheral IV. Central line if indicated Prophylaxis - GI - pantoprazole - DVT - SCD/likely protocol prophylaxis Overall impression: Completed, large, dominant hemisphere CVA. No improvement. Palliative Care. Unable to wean ventilator. Ever Leong MD Mar 12, 2017 09:29
[2017-03-12] MEDS: RESP: ALBUTEROL 2.5 MG/3 ML NEB (PRN) NEB (09:37)
--- NOTE | 2017-03-12 10:45 | HHI.HCPN ---
Reason for visit a. To assist with evaluation and management of symptoms including:dyspnea, encephalopathy, malnutrition b. To assist medical decision maker(s) with: better understanding of current medical conditions; weighing benefits/burdens of medical treatment options; making medical treatment decisions. . (Aria Avendano) Subjective/Interval History The patient is a 66 year old female who was brought to the ED by EMS on 03/02/17 for signs and symptoms of a stroke. The patient was evaluated by neurology shortly after arrival to the facility, she was then brought to interventional radiology for an embolectomy and subsequently received IV tPA. Imaging on included: follow up head CT revealed left parietal CVA with subarachnoid hemorrhage. Patient examined in room today, no neurological improvements, patient is minimally responsive to noxious stimuli, remains intubated and mechanically ventilated, sedated, patient has been unable to tolerate SBTs thus far. Overall patient is edematous, course crackles auscultated in all lung deleon bilaterally. BUN/creat remains elevated, patient has had 17kg gain since admission, positive 3L today, patient still producing urine. Patient's father is arriving from out of town today, he has verbalized that he would like to have the paper work in place for withdrawal of artificial life support completed today, and complete withdraw tomorrow, Tuesday 03/13. Palliative care will continue to provide support and guidance regarding medical treatment options throughout this hospitalization. . Family/friend interactions Bedside meeting and meeting in conference room with patient's father Angel Perkins.. (Aria Avendano) Advance Directives Living Will: Never completed Health Care Surrogate: Never completed Durable Power of Sales Representative Trainee: Never completed (Aria Avendano) Objective Vital Signs Date Time Temp Pulse Resp B/P (MAP) Pulse Ox O2 Delivery O2 Flow Rate FiO2 03/12/17 09:26 95 45 03/12/17 08:00 99.6 89 15 158/71 (100) 94 03/12/17 08:00 45 03/12/17 07:00 85 03/12/17 04:00 100.6 73 15 141/63 (89) 95 03/12/17 04:00 45 03/12/17 03:00 73 03/12/17 02:53 96 45 03/12/17 00:00 45 03/12/17 00:00 99.1 75 15 139/65 (89) 95 03/11/17 23:00 72 03/11/17 20:26 95 45 03/11/17 20:00 99.2 75 16 129/60 (83) 93 03/11/17 20:00 76 03/11/17 20:00 45 03/11/17 16:10 96 45 03/11/17 16:00 45 03/11/17 16:00 100.9 77 17 147/67 (93) 95 03/11/17 15:00 79 03/11/17 12:27 94 45 03/11/17 12:00 100.8 79 15 163/72 (102) 94 03/11/17 12:00 45 03/11/17 11:00 82 Intake & Output 03/12/17 03/12/17 07:00 19:00 Intake Total 1972 ml Output Total 900 ml Balance 1072 ml IV Total 1440 ml Tube Feeding 412 ml Tube Irrigant 120 ml Output Urine Total 900 ml # Bowel Movements 1 . Physical Exam CONSTITUTIONAL/GENERAL: This is a critically ill patient, intubated, mechanically ventilated and sedated. TUBES/LINES/DRAINS: PIV x3, ETT, OGT, soft wrist restraints, rdz catheter SKIN: No jaundice, rashes, or lesions. Ecchymoses on upper extremities. No wounds seen anteriorly. Skin temperature appropriate. Not diaphoretic. EYES: Pupils equal and round and reactive.No scleral icterus. No injection or drainage. Fundi not examined. CARDIOVASCULAR: Regular rate and rhythm without murmurs, gallops, or rubs. No JVD. Peripheral pulses symmetric. RESPIRATORY/CHEST: Symmetric, unlabored respirations. Course crackles bilaterally. GASTROINTESTINAL: Abdomen soft, nondistended. Bowel sounds present. GENITOURINARY: Rdz catheter in place. MUSCULOSKELETAL: Extremities without clubbing, cyanosis. No mottling. BUE & BLE +2 edema. NEUROLOGICAL: Sedated on propofol and fentanyl. Minimally responsive to noxious stimuli. Does not open eyes, does not follow commands. PSYCHIATRIC: Unable to assess secondary to clinical condition. . (Romana,Aria QUILES) Diagnostic Tests Laboratory Laboratory Tests Test 03/10/17 04:17 03/12/17 05:30 Blood Urea Nitrogen 78 MG/DL (7-18) 76 MG/DL (7-18) Creatinine 2.04 MG/DL (0.50-1.00) 1.81 MG/DL (0.50-1.00) Random Glucose 166 MG/DL (74-106) 173 MG/DL (74-106) Calcium Level 8.6 MG/DL (8.5-10.1) 8.9 MG/DL (8.5-10.1) Sodium Level 152 MEQ/L (136-145) 154 MEQ/L (136-145) Potassium Level 4.5 MEQ/L (3.5-5.1) 4.9 MEQ/L (3.5-5.1) Chloride Level 123 MEQ/L (98-107) 125 MEQ/L (98-107) Carbon Dioxide Level 20.9 MEQ/L (21.0-32.0) 22.3 MEQ/L (21.0-32.0) Anion Gap 8 MEQ/L (5-15) 7 MEQ/L (5-15) Estimat Glomerular Filtration Rate 25 ML/MIN (>89) 28 ML/MIN (>89) (Aria Avendano) Result Diagram: 03/12/17 0530 Procedures 03/02/17: Embolectomy and received IV tPA. 03/03/17: Intubated. (Aria Avendano) Assessment and Plan Disease Oriented Problem List: (1) Stroke due to embolism of left middle cerebral artery (2) Respiratory failure (3) HTN (hypertension) Symptom Scale: (1) Dyspnea (2) Encephalopathy Pertinent Non-Medical Issues Psychosocial:Psychosocial history obtained from patient's family. Patient is , no children. She raised her niece Alea as a daughter and cared for many family members. 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 She was currently working for the [employer]. She had no tenriism affiliation, her niece stated the patient was an "atheist". She enjoyed traveling, she traveled alone frequently, and had been to many different countries across the world. Spiritual: No affiliation reported. Does not desire clinical geneticist at this time. Legal: None known. Ethical issues impacting care: None known. . Important Contacts Edna Santiago (aunt): [phone] Sarah Robert (niece): [phone] Angel Perkins (dad): [phone], . Prognosis The patient was completely independent prior to this hospitalization, she has a long standing history of type 1 diabetes and hypertension which appears was not very well controlled. Unfortunately the patient suffered a CVA and has not had any neurological improvement despite medical treatment. Prognosis is guarded. Code Status: Alternative Code Plan * Legal decision maker: The patient does not have any completed written advanced directives. Per [place] statutes legal decision making would fall to the patient's next of kin which is her father Angel Perkins [phone], , he is amenable to making decisions regarding the patient's health care at this time and he is supported in his decision making by the rest of the patient's family. * CODE STATUS: Alternative code, intubation only * GOALS: Meeting today with patient's father to complete exhibits. Exhibits B & C signed. Plan to withdraw artificial life support tomorrow Monday 03/12 at approximately 1400. * 03/09/17: The patient's family collectively agrees that the patient would not want any drastic measures completed to prolong her life if she was unable to be independent and return to her functional status before this hospitalization elected to change her code status to an alternate code today. The family would like time to process all of the information presented to them today and discuss options among themselves. They did state today that they would not likely proceed with a tracheostomy and PEG tube. * Neurology updated regarding family's wishes, Dr. Rizo agrees with withdrawal. * Dr. Leong updated and bedside RN. * Symptom management: --dyspnea: Patient to be withdrawn from artificial life support tomorrow. Dr. Leong available to enter withdrawal of mechanical ventilator and comfort medication orders tomorrow. No recommendations at this time. --encephalopathy: S/P embolectomy and tPA, followed by hemorrhagic conversion. No recommendations at this time. --malnutrition: Patient will be transitioned to comfort focused measures only tomorrow. No recommendations at this time. (Aria Avendano) Plan Visit today included family meeting with patient's father and SO with explanation of withdrawal procedures, anticipatory guidance, medical update and family support. Discussed also with Dr. Almanzar and Dr. Leong.Withdrawal exhibits signed and witnessed, placed on chart. Plan for withdrawal Wednesday, around 2pm. Dr. Leong aware. (Kristine Chi) Attestation To help prompt me to consider important information that might be impacting today's encounter and assessment, information from prior notes written by myself or my colleagues may have been "brought forward" into today's note. My signature on this note, however, is an attestation that I personally performed the exam, history, and/or decision-making noted today, and, unless otherwise indicated, the interactions with patient, family, and staff as well as the review of records all occurred today. I also attest that the listed assessment and stated plan reflect my best clinical judgment today based on the combination of historical information, prior notes, and today's exam/ interactions. When time spent is documented, it refers only to time spent today by the signer, or if indicated, combined time spent today by collaborating physician/nurse practitioner. (Kristine Chi) Aria Avendano Mar 12, 2017 10:45 am Kristine Chi Mar 12, 2017 4:23 pm
[2017-03-12] MEDS ORDERED: FUROSEMIDE 100 MG/10 ML VIAL IV PUSH ONE (11:30)
[2017-03-12] MEDS: POTASSIUM CHLORIDE 25 MEQ EFFERVESCENT TAB NG SCH ×2 (11:30→20:33)
[2017-03-12] MEDS: FUROSEMIDE INJ 100 MG in SODIUM CHLORIDE 0.9% INJ 90 ML IV SCH (11:40)
[2017-03-12 18:42] LABS: BICARBONATE 24.7 MEQ/L (21.0-32.0); MAGNESIUM 2.9 MG/DL (1.5-2.5); POTASSIUM 4.9 MEQ/L (3.5-5.1)
[2017-03-12] MEDS: ACETAMINOPHEN 1000 MG/100 ML VIAL IV PRN (19:36)
[2017-03-13] VITALS (10 sets, daily range): BP systolic 136–164; BP diastolic 67–71; PULSE 72–88; RESP 14–18; TEMP 99.5–102.5; O2SAT 92–94
[2017-03-13] MEDS: FUROSEMIDE INJ 100 MG in SODIUM CHLORIDE 0.9% INJ 90 ML IV SCH (00:17)
[2017-03-13] MEDS: PROPOFOL 1000 MG/100 ML INJ 100 ML IV PRN ×2 (00:20→07:30)
[2017-03-13] MEDS: levETIRAcetam INJ 500 MG in SODIUM CHLORIDE 0.9% INJ 100 ML IV SCH (03:00)
[2017-03-13] MEDS: CHLORHEXIDINE GLUCONATE 2 % 1 PACK (2 CLOTHS) TOP SCH (04:00)
[2017-03-13] MEDS: INSULIN ASPART SUPPLEMENTAL SCALE SQ SCH ×3 (05:24→12:00)
[2017-03-13] MEDS: fentaNYL DRIP 250 ML IV PRN (05:56)
[2017-03-13 07:55] LABS: BICARBONATE 23.5 MEQ/L (21.0-32.0); MAGNESIUM 2.6 MG/DL (1.5-2.5); POTASSIUM 4.6 MEQ/L (3.5-5.1)
[2017-03-13] MEDS: CHLORHEXIDINE 0.12% (ORAL KIT) 15 ML CUP MT SCH (08:00)
[2017-03-13] MEDS: JUVEN POWDER 1 PACK G-TUBE SCH (08:30)
[2017-03-13] MEDS: POTASSIUM CHLORIDE 25 MEQ EFFERVESCENT TAB NG SCH (08:30)
[2017-03-13] MEDS: PANTOPRAZOLE SODIUM 40 MG VIAL IV SCH (08:30)
[2017-03-13] MEDS: DOCUSATE SODIUM 50 MG/SENNA 8.6 MG TAB PO SCH (08:30)
[2017-03-13] MEDS: HEPARIN SODIUM - SQ 10,000 UNITS/ML VIAL SQ SCH (08:30)
[2017-03-13] MEDS: ASPIRIN 300 MG SUPP RECTAL SCH (08:31)
[2017-03-13] MEDS: INSULIN DETEMIR 100 UNITS/ML VIAL SQ SCH (08:31)
--- NOTE | 2017-03-13 09:44 | HHI.CCPN ---
Subjective Remarks/Hospital Course The patient is a 66-year-old female with unknown past medical history who presented to [facility] emergency department by EMS as a stroke alert. The patient was staying at the Hotel and was last seen normal at approximately 09:50 a.m. when she was walking to the patio and then she stumbled back at 11:11 a.m. according to staff disoriented. When EMS arrived she was noted to have right facial droop and right-sided weakness with aphasia. On arrival to the emergency room she was hypertensive with a blood pressure of 244/113. The patient was given Lopressor 5 mg IV x3 and placed on Cardene drip. CT scan of the brain showed possible embolus to the left MCA. She also had a CTA of the brain which showed nonocclusive thrombus involving the left MCA and CTA with brain perfusion showed flow-volume mismatch involving the entire left MCA distribution. She was seen by Dr. Wheeler from neurology service and the patient went to interventional radiology to undergo a catheterization, Angiography for thrombolysis and cough retraction. When seen she was on Cardene drip at 10 mg an hour with current blood pressure of 205/92. The patient is on 2 liters oxygen with saturation of 98% and a pulse of 72. 03/03: Early resting in bed. Verbalizes a few words. Right-sided remains flaccid with right-sided facial droop. Noted patient is insulin pump. Subjective 03/04: Afebrile. Intubated yesterday due to acute hypoxemic respiratory failure. Currently in acute kidney injury possibly secondary to dye/IV contrast. Nonoliguric currently with 1225 cc past 24 hours. Following commands unilaterally with left upper and lower extremity. Right upper and lower extremity flaccid. 03/05: No improvement in neuro status. CT head with some edema. 03/06: No neurological improvement. Does not focus, track, or respond. Her insulin pump is off, sugars elevated. 03/07: Levemir increased for elevated BS, converted to Glucerna 1.5. No neurological improvement. 03/08: Glucose intolerance persists. No improvement, remains unresponsive. 03/09: Does not track or focus. She does get agitated and requires sedation to synchronize with vent. Major decision is if family wants to proceed with trach and PEG. 03/10: Palliative Care service working with family re: care plan, goals. No improvement after devastating dominant hemisphere CVA. 03/11: No improvement overnight. Hydration state improved. 03/12: Weight is up 16 liters. Generally edematous. No neurological improvement. 03/13: Family plans withdrawal today. Agree. Devastating stroke. Objective Vital Signs Date Time Temp Pulse Resp B/P (MAP) Pulse Ox O2 Delivery O2 Flow Rate FiO2 03/13/17 08:00 45 03/13/17 07:00 87 03/13/17 04:10 94 03/13/17 04:00 99.5 15 155/71 (99) 03/11/17 07:00 Mechanical Ventilator Intake and Output 03/13/17 03/13/17 03/14/17 08:00 16:00 00:00 Intake Total 976 ml Output Total 3500 ml Balance -2524 ml Result Diagram: 03/13/17 0500 Imaging Last Impressions Renal Ultrasound 03/03/17 0000 Signed Impressions: Service Date/Time: Friday, March 03, 2017 17:58 - CONCLUSION: 1. Echogenic kidneys characteristic of medical renal disease with trace perinephric fluid. No hydronephrosis. 2. Abnormal cystic and solid lesions in the pelvis. Further evaluation with CT abdomen and pelvis recommended. Jerrell Quintero MD Head CT 03/03/17 0000 Signed Impressions: Service Date/Time: Friday, March 03, 2017 14:18 - CONCLUSION: Very faint areas of high density within the left posterior parietal parenchyma measuring approximately 1 cm each suggestive of possible faint areas of parenchymal or subarachnoid hemorrhage as well as diffuse effacement of the posterior parietal sulci and underlying scattered areas of decreased attenuation consistent with acute infarction of the left posterior parietal lobe. Humberto Santillan MD Chest X-Ray 03/03/17 0000 Signed Impressions: Service Date/Time: Friday, March 03, 2017 16:41 - CONCLUSION: 1. ET tube in good position. 2. Bilateral airspace opacities, similar to prior. Gonzalo Madison MD Cerebral Arteriogram 03/02/17 1511 Signed Impressions: Service Date/Time: Thursday, March 02, 2017 12:44 - CONCLUSION: Successful embolectomy of the left MCA territory using a Solumbra technique as above. Micky Sauer MD Neck CTA 03/02/17 1121 Signed Impressions: Service Date/Time: Thursday, March 02, 2017 11:54 - CONCLUSION: 1. No evidence of hemodynamically significant lesion. There is 0-10%% stenosis bilaterally. Anthony Bourne MD Head/Neck CTA with Brain Perfusion 03/02/171120 Signed Impressions: Service Date/Time: Thursday, March 02, 2017 11:54 - CONCLUSION: 1. Flow volume mismatch involving the entire left middle cerebral artery distribution. The patient is to go to catheter angiography for thrombolysis Anthony Bourne MD Head CTA 03/02/171120 Signed Impressions: Service Date/Time: Thursday, March 02, 2017 11:54 - CONCLUSION: 1. Nonocclusive thrombus involving the left middle cerebral artery as above Anthony Bourne MD Objective Remarks GENERAL: 66 year old female, currently resting in bed in no acute distress orotracheally intubated SKIN: Warm and dry. No rash HEAD: Atraumatic. Normocephalic. EYES: Pupils equal and round 3 mm bilaterally and reactive. No scleral icterus. No injection or drainage. ENT: No nasal bleeding or discharge. Mucous membranes pink and moist. Oropharynx without erythema or exudates NECK: Trachea midline. No JVD. CARDIOVASCULAR: Regular rate and rhythm. S1, S2 no S4 without murmur RESPIRATORY: No accessory muscle use. Clear to auscultation. Breath sounds equal bilaterally. GASTROINTESTINAL: Abdomen soft, non-tender, nondistended. Hepatic and splenic margins not palpable. MUSCULOSKELETAL: Extremities without significant peripheral edema. No obvious deformities. NEUROLOGICAL: Opens eyes briefly, no focus or tracking. Right facial droop. Right-side arm remains flaccid. Right leg withdraws to noxious stimulation. Spontaneously moving left upper and lower extremity. Tolerates CPAP still only briefly. 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 Repeat head CT 03/03 revealed a left parietal CVA with petechial hemorrhage surrounding Neurology/Dr. Wheeler following Will check EEG today 03/04 CV: Hypertension Hypertriglyceridemia of 277 Currently on as needed labetalol/hydralazine and Nitropaste to maintain systolic blood pressure less than 160/: Blood pressure goal recommendation and discussion per neurology 03/03 Home medications atenolol 50 mill grams daily and valsartan/HCTZ 320/25 one tablet daily 2-D echocardiogram revealed EF 55%. Mild LVH Initiate lipid-lowering agent once clinically appropriate Resp: Acute hypoxemic respiratory failure [facility] 16/07/02/39 Ventilator bundle Albuterol/ipratropium aerosols every 6 hours and albuterol aerosols every 2 hours. Dyspnea Spontaneous breathing trials daily GI: Gastroesophageal reflux disease Initiate tube feeding with Nepro goal 40 cc an hour Pantoprazole for GI prophylaxis. On omeprazole at home 20 mg daily Leslie-Colace one tablet twice a day for bowel regimen Glucerna 1.5 TFs Increase levemir to 35 bid : d/c Zapien catheter Endo: Diabetes mellitus Discontinue insulin pump. Restart when clinically indicated. Started on detemir 10 units subcutaneous twice a day Sliding-scale insulin with Accu-Cheks to maintain euglycemia/low regimen every 4 hours with Novolog Renal: Acute kidney injury question underlying chronic kidney disease Currently normal saline cc an hour Did receive IV dye for CT angiogram Check urine electrolytes and eosinophils. Renal ultrasound 03/03 revealed medical renal disease. Noted's cystic versus solid mass and pelvis. Recommended CT pelvis. Weight up 17 liters. Start lasix gtt, follow Creat closely Heme: Leukocytosis Monitor CBC daily. Follow trends ID: Monitor for infection MSK: Vitamin D deficiency Holding calcitriol 0.25 mg daily and ergocalciferol 2000 units daily. Resume when clinically indicated FEN: Replace electrolytes as clinically indicated Access - Utilize peripheral IV. Central line if indicated Prophylaxis - GI - pantoprazole - DVT - SCD/likely protocol prophylaxis Overall impression: Completed, large, dominant hemisphere CVA. No improvement. Palliative Care. Unable to wean ventilator. Family considering withdrawal. Ever Leong MD Mar 13, 2017 09:44
[2017-03-13] MEDS ORDERED: LORazepam 2 MG/ML VIAL IV PUSH PRN (09:45)
[2017-03-13] MEDS ORDERED: MORPHINE SULFATE 8 MG/ML INJ IV PUSH PRN (09:45)
[2017-03-13] MEDS ORDERED: HYOSCYAMINE SOLN 0.125 MG/ML 15 ML BTL PO ONE (09:45)
--- NOTE | 2017-03-13 18:18 | DEATH SUM ---
Summary Demographics Date Pronounced : Mar 13, 2017 Time Of : 16:09 Preliminary Cause of : Other (Massive stroke) Ever Leong MD Mar 13, 2017 18:18
--- NOTE | 2017-03-13 18:24 | HHI.DS ---
Discharge Summary Admission Date Mar 02, 2017 at 12:09 Discharge Date: Mar 13, 2017 Admitting Diagnosis stroke alert/TPA/severe hypertension (1) Stroke due to embolism of left middle cerebral artery ICD Code: I63.412 - Cerebral infarction due to embolism of left middle cerebral artery Status: Acute (2) HTN (hypertension) ICD Code: I10 - Essential (primary) hypertension Status: Chronic (3) Respiratory failure ICD Code: J96.90 - Respiratory failure, unspecified, unspecified whether with hypoxia or hypercapnia Status: Acute Procedures Intubation. Mechanical ventilation. Brief History 66 y/o woman sustained massive dominant hemisphere ischemic stroke, received tPA by direct arterial injection and clot extraction without significant improvement. Was ventilator dependent and remained unresponsive. Family decided after lengthy hospitalization to withdraw artificial support and allow for natural . She at 1609 on 03/13/17. Family was at the bedside. CBC/BMP: 03/13/17 0500 Significant Findings Laboratory Tests Test 03/12/17 05:30 03/12/17 17:31 03/13/17 05:00 Blood Urea Nitrogen 76 MG/DL (7-18) 78 MG/DL (7-18) 86 MG/DL (7-18) Creatinine 1.81 MG/DL (0.50-1.00) 1.87 MG/DL (0.50-1.00) 2.02 MG/DL (0.50-1.00) Random Glucose 173 MG/DL (74-106) 195 MG/DL (74-106) 255 MG/DL (74-106) Sodium Level 154 MEQ/L (136-145) 154 MEQ/L (136-145) 153 MEQ/L (136-145) Chloride Level 125 MEQ/L (98-107) 123 MEQ/L (98-107) 120 MEQ/L (98-107) Estimat Glomerular Filtration Rate 28 ML/MIN (>89) 27 ML/MIN (>89) 25 ML/MIN (>89) Magnesium Level 2.9 MG/DL (1.5-2.5) 2.6 MG/DL (1.5-2.5) Imaging CT Head: Left MCA CVA. PE at Discharge Hospital Course The patient is a 66-year-old female with unknown past medical history who presented to [facility] emergency department by EMS as a stroke alert. The patient was staying at the Hotel and was last seen normal at approximately 09:50 a.m. when she was walking to the patio and then she stumbled back at 11:11 a.m. according to staff disoriented. When EMS arrived she was noted to have right facial droop and right-sided weakness with aphasia. On arrival to the emergency room she was hypertensive with a blood pressure of 244/113. The patient was given Lopressor 5 mg IV x3 and placed on Cardene drip. CT scan of the brain showed possible embolus to the left MCA. She also had a CTA of the brain which showed nonocclusive thrombus involving the left MCA and CTA with brain perfusion showed flow-volume mismatch involving the entire left MCA distribution. She was seen by Dr. Wheeler from neurology service and the patient went to interventional radiology to undergo a catheterization, Angiography for thrombolysis and cough retraction. When seen she was on Cardene drip at 10 mg an hour with current blood pressure of 205/92. The patient is on 2 liters oxygen with saturation of 98% and a pulse of 72. 03/03: Early resting in bed. Verbalizes a few words. Right-sided remains flaccid with right-sided facial droop. Noted patient is insulin pump. Subjective 03/04: Afebrile. Intubated yesterday due to acute hypoxemic respiratory failure. Currently in acute kidney injury possibly secondary to dye/IV contrast. Nonoliguric currently with 1225 cc past 24 hours. Following commands unilaterally with left upper and lower extremity. Right upper and lower extremity flaccid. 03/05: No improvement in neuro status. CT head with some edema. 03/06: No neurological improvement. Does not focus, track, or respond. Her insulin pump is off, sugars elevated. 03/07: Levemir increased for elevated BS, converted to Glucerna 1.5. No neurological improvement. 03/08: Glucose intolerance persists. No improvement, remains unresponsive. 03/09: Does not track or focus. She does get agitated and requires sedation to synchronize with vent. Major decision is if family wants to proceed with trach and PEG. 03/10: Palliative Care service working with family re: care plan, goals. No improvement after devastating dominant hemisphere CVA. 03/11: No improvement overnight. Hydration state improved. 03/12: Weight is up 16 liters. Generally edematous. No neurological improvement. 03/13: Family plans withdrawal today. Agree. Devastating stroke. Pt Condition on Discharge: Deteriorating Ever Leong MD Mar 13, 2017 18:24
== END 2017-03-13 16:09 | disposition expired | DRG 23 ==
LOC: NEPE 10:54 → NEDA 12:09 → N03A 16:49
PROVIDERS: ADMIT Surgery Surgical Critical Care; ATTEND Surgery Surgical Critical Care
PROC: 3E03317 Introduction of Other Thrombolytic into Peripheral Vein, Percutaneous Approach (ICD-10-PCS; 2017-03-02)
PROC: 03CG3ZZ Extirpation of Matter from Intracranial Artery, Percutaneous Approach (ICD-10-PCS; principal; 2017-03-03)
PROC: 5A1955Z Respiratory Ventilation, Greater than 96 Consecutive Hours (ICD-10-PCS; 2017-03-03)
PROC: 0BH17EZ Insertion of Endotracheal Airway into Trachea, Via Natural or Artificial Opening (ICD-10-PCS; 2017-03-03)
DX: I63.412 Cerebral infarction due to embolism of left middle cerebral artery (principal); G93.40 Encephalopathy, unspecified; I60.12 Nontraumatic subarachnoid hemorrhage from left middle cerebral artery; J96.01 Acute respiratory failure with hypoxia; N17.9 Acute kidney failure, unspecified; G93.6 Cerebral edema; R13.10 Dysphagia, unspecified; G81.91 Hemiplegia, unspecified affecting right dominant side; I16.1 Hypertensive emergency; Z51.5 Encounter for palliative care; R47.01 Aphasia; R29.810 Facial weakness; I45.10 Unspecified right bundle-branch block; R29.723 NIHSS score 23; D72.829 Elevated white blood cell count, unspecified; K21.9 Gastro-esophageal reflux disease without esophagitis; E10.22 Type 1 diabetes mellitus with diabetic chronic kidney disease; I12.9 Hypertensive chronic kidney disease with stage 1 through stage 4 chronic kidney disease, or unspecified chronic kidney disease; N18.9 Chronic kidney disease, unspecified; E55.9 Vitamin D deficiency, unspecified; E78.1 Pure hyperglyceridemia; R60.9 Edema, unspecified; D25.9 Leiomyoma of uterus, unspecified; T50.8X5A Adverse effect of diagnostic agents, initial encounter; Y92.239 Unspecified place in hospital as the place of occurrence of the external cause; Z79.4 Long term (current) use of insulin; Z82.49 Family history of ischemic heart disease and other diseases of the circulatory system; Z83.3 Family history of diabetes mellitus; Z84.1 Family history of disorders of kidney and ureter; Z96.41 Presence of insulin pump (external) (internal)
CPT/HCPCS: 0042T; 31500; 36600; 51702; 61645; 70450; 70496; 70498; 71010; 74176; 76775; 76942; 80048; 80053; 80061; 81001; 82378; 82435; 82550; 82565; 82570; 82805; 82947; 82948; 83036; 83735; 84100; 84132; 84295; 84300; 84484; 84520; 85025; 85027; 85384; 85610; 85730; 86140; 86304; 86850; 86900; 86901; 87040; 87070; 87086; 87205; 87804; 93005; 93306; 94002; 94003; 94640; 94664; 95819; 96374; C1757; C1760; C1769; C1887; C1894; C9113; J0131; J0360; J1644; J1815; J1940; J1953; J2060; J2270; J2405; J2997; J3010; J3480; J7030; J7040; J7050; J7120; J7613; Q9963; Q9967